=== PATIENT | male | born 1950 | race Caucasian/White ===

== ENCOUNTER 2016-10-20 20:04 | Emergency (ER) | payer MEDICARE, OTHER ==
[2016-10-20] MEDS ORDERED: ASPIRIN 81 MG CHEW TABLET As Ordered ONE (20:31)
[2016-10-20 20:51] LABS: MEAN CORPUSCULAR HEMOGLOBIN 30.6 pg (27.0-33.0); MEAN CORPUSCULAR HGB CONC 34.4 g/dl (32.0-36.5); MEAN CORPUSCULAR VOLUME 89.1 fl (80.0-96.0); RED CELL DISTRIBUTION WIDTH 12.5 % (11.5-14.5); WHITE BLOOD COUNT 6.2 K/mm3 (4.0-10.0)
[2016-10-20 20:53] LABS: INR 1.05
[2016-10-20 21:09] LABS: ANION GAP 7 MEQ/L (8-16); BLOOD UREA NITROGEN 16 MG/DL (7-18); CALCIUM LEVEL 8.6 MG/DL (8.8-10.2); CARBON DIOXIDE LEVEL 29 MEQ/L (21-32); CHLORIDE LEVEL 106 MEQ/L (98-107); CREATININE FOR GFR 1.07 MG/DL (0.70-1.30); GLOMERULAR FILTRATION RATE > 60.0 (>49); GLUCOSE, FASTING 108 MG/DL (80-110); POTASSIUM SERUM 3.9 MEQ/L (3.5-5.1); SODIUM LEVEL 142 MEQ/L (136-145)
--- NOTE | 2016-10-21 01:52 | EDDOCDS ---
Nurse's Notes [facility] Name: Ishmael Monterroso Age: 66 yrs Sex: Male : 1950 Arrival Date: 10/20/2016 Time: 20:04 Bed OBSERVATION Private MD: Quynh - Complete Info On Cds Diagnosis: Chest pain, unspecified Presentation: 10/20 20:12 Presenting complaint: Patient states: he developed chest pain tonight shortly before cz arrival when putting the garbage out pain radiated to arms presently chest pain 1/10 and elbow pain bilaterally. mpt relates he has had episodes of chest pain for past month. Aspirin was not taken prior to arrival. Adult Sepsis Screening: The patient does not have new or worsening altered mentation. Patient's respiratory rate is less than 22. Systolic blood pressure is greater than 100. Patient has a qSOFA score of 0- Negative Sepsis Screen. Suicide/Homicide risk assessment- the patient denies having any suicidal and/or homicidal ideations and does not present with any other emotional, behavioral or mental health complaints. 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 Transition of care: patient was not received from another setting of care. 20:12 Acuity: HANNY Level 2 cz 20:12 Method Of Arrival: Walkin/Carried/Asstd cz Triage Assessment: 20:17 General: Appears in no apparent distress. Pain: Location: mid-sternal area Pain cz currently is 1 out of 10 on a pain scale. Historical: - Allergies: No known drug Allergies; - Home Meds: 1. aspirin 81 mg Oral tab 2. Zoloft 25 mg Oral tab 3. vitamins - PMHx: none; - PSHx: Cervical Discectomy; - Social history: Smoking status: Patient states was never smoker of tobacco. No barriers to communication noted, The patient speaks fluent Uzbek, Speaks appropriately for age. - Family history: Not pertinent. - : The pt / caregiver states he / she is not on anticoagulants. Home medication list is obtained from the patient. - Exposure Risk Screening:: None identified. Screenin:16 Screening information is obtained from the patient. Fall risk: No risks identified. mlc Assistance ADL's: requires no assistance with activities of daily living. Abuse/DV Screen: The patient / caregiver reports he/she is: not in a situation that causes fear, pain or injury. Nutritional screening: No deficits noted. home support is adequate. 22:55 Advance Directives: Currently, there is no health care proxy. There is no active DNR mlc order. There is no living will. There is no Power of Decorating Instructor. Assessment: 20:29 General: Appears in no apparent distress, Behavior is appropriate for age, cooperative. pml Pain: Location: mid-sternal area Pain currently is 3 out of 10 on a pain scale. At worst was 7 out of 10 on a pain scale. Aggravated by palpation. Neurological: Level of Consciousness is awake, alert, Oriented to person, place, time. Cardiovascular: Capillary refill < 3 seconds Rhythm is sinus rhythm No ectopy. Respiratory: Airway is patent Respiratory effort is even, unlabored. GI: Abdomen is non- distended. Derm: Skin is pink, warm & dry. 21:53 General: Appears in no apparent distress, comfortable, Behavior is cooperative. mlc General: pt ambulated to bathroom, tolerated well. Neurological: Level of Consciousness is awake, alert, Oriented to person, place, time. Respiratory: Airway is patent Respiratory effort is even, unlabored, Respiratory pattern is regular. Derm: Skin is pink, warm & dry. 22:55 Reassessment: Patient appears in no apparent distress at this time. Patient denies pain mlc at this time. pt resting comfortably in bed. . Cardiovascular: Heart tones S1 S2 present. Cardiovascular: Rhythm is sinus rhythm. Respiratory: Breath sounds are clear bilaterally. Derm: Skin is pink, warm & dry. 23:41 Reassessment: Patient appears in no apparent distress at this time. no changes since mlc prior, resp easy/unlabored. . 10/21 00:59 Reassessment: Patient appears in no apparent distress at this time. Patient denies pain mlc at this time. pt offers no complaints. resp easy/unlabored. . 01:49 General: Appears in no apparent distress, comfortable, Behavior is cooperative. Pain: mlc Denies pain. Neurological: Level of Consciousness is awake, alert, Oriented to person, place, time. Respiratory: Airway is patent Respiratory effort is even, unlabored, Respiratory pattern is regular. Derm: Skin is pink, warm & dry. Vital Signs: 10/20 20:06 BP 128 / 86; Pulse 76; Resp 18 S; Temp 96.7(O); Pulse Ox 99% on R/A; Weight 88.45 kg gr2 (R); Height 5 ft. 11 in. (180.34 cm) (R); Pain 12/16; 20:16 BP 167 / 97 (auto/); mlc 20:19 Pulse 76 MON; mlc 20:31 Pulse 74 MON; mlc 20:31 BP 139 / 79 (auto/); mlc 20:46 Pulse 74 MON; mlc 20:46 BP 125 / 68 (auto/); mlc 21:01 Pulse 70 MON; mlc 21:01 BP 134 / 82 (auto/); mlc 21:16 BP 132 / 84 (auto/); mlc 21:17 Pulse 66 MON; mlc 21:31 BP 135 / 80 (auto/); mlc 21:32 Pulse 66 MON; mlc 21:47 BP 138 / 71 (auto/); mlc 21:49 Pulse 68 MON; mlc 22:01 BP 122 / 65 (auto/); mlc 22:02 Pulse 64 MON; Pulse Ox 96% ; mlc 22:16 BP 123 / 75 (auto/); mlc 22:17 Pulse 62 MON; Pulse Ox 96% ; mlc 22:31 BP 123 / 72 (auto/); mlc 22:32 Pulse 66 MON; Pulse Ox 97% ; mlc 22:46 BP 131 / 81 (auto/); mlc 22:47 Pulse 62 MON; Pulse Ox 98% ; mlc 23:01 BP 127 / 83 (auto/); mlc 23:02 Pulse 62 MON; Pulse Ox 96% ; mlc 23:16 BP 139 / 91 (auto/); mlc 23:17 Pulse 58 MON; Pulse Ox 97% ; mlc 23:31 BP 143 / 96 (auto/); mlc 23:32 Pulse 66 MON; Pulse Ox 93% ; mlc 23:46 Pulse 64 MON; Pulse Ox 96% ; mlc 23:46 BP 131 / 88 (auto/); mlc 10/21 00:01 BP 136 / 95 (auto/); mlc 00:02 Pulse 62 MON; Pulse Ox 96% ; mlc 00:16 Pulse 58 MON; Pulse Ox 97% ; mlc 00:16 BP 131 / 87 (auto/); mlc 00:31 BP 130 / 89 (auto/); mlc 00:32 Pulse 62 MON; Pulse Ox 97% ; mlc 00:46 BP 137 / 89 (auto/); mlc 00:47 Pulse 64 MON; Pulse Ox 96% ; mlc 01:07 BP 135 / 89 (auto/); mlc 01:08 Pulse 68 MON; Pulse Ox 96% ; mlc 01:16 Pulse 58 MON; Pulse Ox 96% ; mlc 01:16 BP 135 / 85 (auto/); mlc 01:31 Pulse 60 MON; Pulse Ox 95% ; mlc 01:31 BP 122 / 70 (auto/); mlc 01:49 BP 128 / 79; Pulse 60; Resp 18; Temp 97.7; Pulse Ox 98% on R/A; Pain 0/10; mlc 10/20 20:06 Body Mass Index 27.20 (88.45 kg, 180.34 cm) gr2 Vitals: 10/20 20:06 Log In Time: October 20, 2016 at 20:06. RN notified that patient meets Red Flag gr2 criteria. ED Course: 20:06 Patient visited by Deidra Jiménez. gr2 20:06 Other - Complete Info On Cds is Private Physician. gr2 20:06 Patient moved to Waiting gr2 20:08 Patient visited by Deidra Jiménez. gr2 20:09 Patient moved to Pre RCE gr2 20:10 Tasneem Wolff,ODALYS is Primary Nurse. cz 20:10 Case Klein DO is Attending Physician. cs11 20:10 Patient visited by Case Klein DO. cs11 20:10 Patient moved to 10 cz 20:15 Triage Initiated cz 20:27 Patient visited by Rajeev Goetz PCA. kb5 20:27 EKG done. (by ED staff). Reviewed by Case Klein DO. kb5 20:29 The patient / caregiver is instructed regarding the plan of care and ED course. Patient pml has correct armband on for positive identification. Placed in gown. Bed in low position. Call light in reach. Side rails up X2. media monitor on. Pulse ox on. NIBP on. 20:29 Inserted peripheral IV: 18gauge IV in left antecubital area and blood collected. pml Patient tolerated the procedure well. 20:31 Patient visited by Patty Luke RN. pml 20:42 Patient moved to OBSERVATION cs11 20:44 Cardiac Marker Panel Sent. mlc 20:44 Pt & Aptt Sent. mlc 20:44 MED Profile Sent. mlc 20:44 CBC Sent. mlc 21:56 Patient visited by Tasneem Wolff RN. mlc 21:56 Patient visited by Rajeev Goetz PCA. kb5 22:57 Patient visited by Tasneem Wolff RN. mlc 23:41 Patient visited by Tasneem Wolff RN. mlc 10/21 00:59 Patient visited by Tasneem Wolff RN. mlc 00:59 [facility] Payment Agreement was scanned into [employer] and attached to record. hs2 01:00 CARDIAC MARKER PANEL Sent. mlc 01:15 Patient visited by Rajeev Goetz PCA. kb5 01:15 EKG done. (by ED staff). Reviewed by Case Klein DO. kb5 01:41 Kushal Ornelas MD is Referral Physician. cs11 01:50 Discontinued IV lock intact, bleeding controlled, pressure dressing applied, No mlc redness/swelling at site. No procedures done that require assistance. Administered Medications: 10/20 20:34 Drug: Aspirin 81 mg [aspirin 81 mg chewable tablet (1 tabs)] Route: PO; pml Order Results: Lab Order: CBC; SPEC'M 10/20/16 20:21 Test: WHITE BLOOD COUNT; Value: 6.2; Range: 4.0-10.0; Units: K/mm3; Status: F Test: RED BLOOD COUNT; Value: 4.87; Range: 4.30-6.10; Units: M/mm3; Status: F Test: HEMOGLOBIN; Value: 14.9; Range: 14.0-18.0; Units: g/dl; Status: F Test: HEMATOCRIT; Value: 43.4; Range: 42.0-52.0; Units: %; Status: F Test: MEAN CORPUSCULAR VOLUME; Value: 89.1; Range: 80.0-96.0; Units: fl; Status: F Test: MEAN CORPUSCULAR HEMOGLOBIN; Value: 30.6; Range: 27.0-33.0; Units: pg; Status: F Test: MEAN CORPUSCULAR HGB CONC; Value: 34.4; Range: 32.0-36.5; Units: g/dl; Status: F Test: RED CELL DISTRIBUTION WIDTH; Value: 12.5; Range: 11.5-14.5; Units: %; Status: F Test: PLATELET COUNT, AUTOMATED; Value: 179; Range: 150-450; Units: k/mm3; Status: F Lab Order: MED Profile; SPEC'M 10/20/16 20:21 Test: GLUCOSE, FASTING; Value: 108; Range: 80-110; Units: MG/DL; Status: F Test: BLOOD UREA NITROGEN; Value: 16; Range: 7-18; Units: MG/DL; Status: F Test: CREATININE FOR GFR; Value: 1.07; Range: 0.70-1.30; Units: MG/DL; Status: F Test: GLOMERULAR FILTRATION RATE; Value: > 60.0; Range: >49; Status: F Test: SODIUM LEVEL; Value: 142; Range: 136-145; Units: MEQ/L; Status: F Test: POTASSIUM SERUM; Value: 3.9; Range: 3.5-5.1; Units: MEQ/L; Status: F Test: CHLORIDE LEVEL; Value: 106; Range: 98-107; Units: MEQ/L; Status: F Test: CARBON DIOXIDE LEVEL; Value: 29; Range: 21-32; Units: MEQ/L; Status: F Test: ANION GAP; Value: 7; Range: 8-16; Abnormal: Below low normal; Units: MEQ/L; Status: F Test: CALCIUM LEVEL; Value: 8.6; Range: 8.8-10.2; Abnormal: Below low normal; Units: MG/DL; Status: F Test Note: ; Units are mL/min/1.73 m2 Chronic Kidney Disease Staging per NKF: Stage I & II GFR >=60 Normal to Mildly Decreased Stage III GFR 30-59 Moderately Decreased Stage IV GFR 15-29 Severely Decreased Stage V GFR <15 Very Little GFR Left ESRD GFR <15 on NUCLEAR MEDICAL TECH Lab Order: Pt & Aptt; SPEC'M 10/20/16 20:21 Test: PROTHROMBIN TIME; Value: 13.8; Range: 12.3-14.5; Units: SECONDS; Status: F Test: INR; Value: 1.05; Status: F Test: PARTIAL THROMBOPLASTIN TIME; Value: 30.2; Range: 26.6-37.1; Units: SECONDS; Status: F Test Note: ; THERAPUTIC HUMAN INR VALUES INDICATIONS NORMAL RANGES PROPHYLAXIS/TREATMENT OF: VENOUS THROMBOSIS 2.0-3.0 PULMONARY EMBOLISM 2.0-3.0 PREVENTION OF SYSTEMIC EMBOLISM FROM: TISSUE HEART VALVES 2.0-3.0 ACUTE MYOCARDIAL INFARCTION 2.0-3.0 VALVULAR HEART DISEASE 2.0-3.0 ATRIAL FIBRILLATION 2.0-3.0 MECHANICAL VALVES(HIGH RISK) 2.5-3.5 RECURRENT MYOCARDIAL INFARCTION 2.5-3.5 Lab Order: Cardiac Marker Panel; [facility] 10/20/16 20:21 Test: CPK CREATINE PHOSPHOKINASE; Value: 322; Range: 39-308; Abnormal: Above high normal; Units: U/L; Status: F Test: CK-MB VALUE MASS; Value: 2.9; Range: 0.0-3.6; Units: NG/ML; Status: F Test: MB/CK RELATIVE INDEX; Value: 0.90; Range: < OR =4; Status: F Test: TROPONIN I; Value: < 0.02; Range: < 0.10; Units: NG/ML; Status: F Test Note: ; DIAGNOSIS CRITERIA MMB ng/ml Relative Index (RI) NON-AMI < or = 5 N/A ROTH ZONE > 5 < or = 4 AMI > 5 > 4 Lab Order: CARDIAC MARKER PANEL; SPEC'M 10/21/16 00:56 Test: CPK CREATINE PHOSPHOKINASE; Value: 274; Range: 39-308; Units: U/L; Status: F Test: CK-MB VALUE MASS; Value: 2.6; Range: 0.0-3.6; Units: NG/ML; Status: F Test: MB/CK RELATIVE INDEX; Value: 0.94; Range: < OR =4; Status: F Test: TROPONIN I; Value: < 0.02; Range: < 0.10; Units: NG/ML; Status: F Test Note: ; DIAGNOSIS CRITERIA MMB ng/ml Relative Index (RI) NON-AMI < or = 5 N/A ROTH ZONE > 5 < or = 4 AMI > 5 > 4 Outcome: 10/21 01:41 Discharge ordered by Provider. [facility] 01:50 Discharge Assessment: Patient awake, alert and oriented x 3. No cognitive and/or mlc functional deficits noted. Patient verbalized understanding of disposition instructions. patient administered narcotics - no. The following High Risk Discharge criteria are identified: None. Discharged to home ambulatory, with significant other. Condition: good Condition: stable. Discharge instructions given to patient, Instructed on discharge instructions, follow up and referral plans. Demonstrated understanding of instructions, Pt was receptive of discharge instructions/ teaching. No special radiology studies were completed. Property sent home with patient. 01:51 [place] [facility] [place]: Jose Alfredo Fonseca, RN RN Rajeev Peguero, EILEEN AUTO DETAILER kb5 Patty Luke RN RN pml Schiff, Craig, DO cs11 Deidra Jiménez gr2 Tasneem Wolff RN RN mlc Stanton, Hillary, Reg Reg hs2 MTDD
--- NOTE | 2016-10-21 01:52 | EDDOCDS ---
Physician Documentation [facility] Name: Ishmael Monterroso Age: 66 yrs Sex: Male : 1950 Arrival Date: 10/20/2016 Time: 20:04 Bed OBSERVATION Private MD: Other - Complete Info On Cds Disposition: 10/21/16 01:41 Discharged to Home/Self Care. Impression: Chest pain, unspecified. - Condition is Stable. - Medication Reconciliation, Local Pharmacy Hours form. - Follow up: Kushal Ornelas MD; When: Call to arrange an appointment; Reason: Recheck today's complaints. - Problem is an ongoing problem. - Symptoms have improved. Historical: - Allergies: No known drug Allergies; - Home Meds: 1. aspirin 81 mg Oral tab 2. Zoloft 25 mg Oral tab 3. vitamins - PMHx: none; - PSHx: Cervical Discectomy; - Social history: Smoking status: Patient states was never smoker of tobacco. No barriers to communication noted, The patient speaks fluent Montserratian, Speaks appropriately for age. - Family history: Not pertinent. - : The pt / caregiver states he / she is not on anticoagulants. Home medication list is obtained from the patient. - Exposure Risk Screening:: None identified. Vital Signs: 10/20 20:06 BP 128 / 86; Pulse 76; Resp 18 S; Temp 96.7(O); Pulse Ox 99% on R/A; Weight 88.45 kg / gr2 195 lbs (R); Height 5 ft. 11 in. (180.34 cm) (R); Pain 3/10; 20:16 BP 167 / 97 (auto/); mlc 20:19 Pulse 76 MON; mlc 20:31 Pulse 74 MON; mlc 20:31 BP 139 / 79 (auto/); mlc 20:46 Pulse 74 MON; mlc 20:46 BP 125 / 68 (auto/); mlc 21:01 Pulse 70 MON; mlc 21:01 BP 134 / 82 (auto/); mlc 21:16 BP 132 / 84 (auto/); mlc 21:17 Pulse 66 MON; mlc 21:31 BP 135 / 80 (auto/); mlc 21:32 Pulse 66 MON; mlc 21:47 BP 138 / 71 (auto/); mlc 21:49 Pulse 68 MON; mlc 22:01 BP 122 / 65 (auto/); mlc 22:02 Pulse 64 MON; Pulse Ox 96% ; mlc 22:16 BP 123 / 75 (auto/); mlc 22:17 Pulse 62 MON; Pulse Ox 96% ; mlc 22:31 BP 123 / 72 (auto/); mlc 22:32 Pulse 66 MON; Pulse Ox 97% ; mlc 22:46 BP 131 / 81 (auto/); mlc 22:47 Pulse 62 MON; Pulse Ox 98% ; mlc 23:01 BP 127 / 83 (auto/); mlc 23:02 Pulse 62 MON; Pulse Ox 96% ; mlc 23:16 BP 139 / 91 (auto/); mlc 23:17 Pulse 58 MON; Pulse Ox 97% ; mlc 23:31 BP 143 / 96 (auto/); mlc 23:32 Pulse 66 MON; Pulse Ox 93% ; mlc 23:46 Pulse 64 MON; Pulse Ox 96% ; mlc 23:46 BP 131 / 88 (auto/); mlc 10/21 00:01 BP 136 / 95 (auto/); mlc 00:02 Pulse 62 MON; Pulse Ox 96% ; mlc 00:16 Pulse 58 MON; Pulse Ox 97% ; mlc 00:16 BP 131 / 87 (auto/); mlc 00:31 BP 130 / 89 (auto/); mlc 00:32 Pulse 62 MON; Pulse Ox 97% ; mlc 00:46 BP 137 / 89 (auto/); mlc 00:47 Pulse 64 MON; Pulse Ox 96% ; mlc 01:07 BP 135 / 89 (auto/); mlc 01:08 Pulse 68 MON; Pulse Ox 96% ; mlc 01:16 Pulse 58 MON; Pulse Ox 96% ; mlc 01:16 BP 135 / 85 (auto/); mlc 01:31 Pulse 60 MON; Pulse Ox 95% ; mlc 01:31 BP 122 / 70 (auto/); mlc 01:49 BP 128 / 79; Pulse 60; Resp 18; Temp 97.7; Pulse Ox 98% on R/A; Pain 0/10; mlc 10/20 20:06 Body Mass Index 27.20 (88.45 kg, 180.34 cm) gr2 MDM: 10/20 20:12 ECG WITH READING ER PHYS+CARDIAG ordered. EDMS 20:29 Aspirin Chewable Tablet 81 mg PO once; 3 tabs ordered. cs11 20:30 Chest, 1 View Ordered. EDMS 20:32 CBC Ordered. EDMS 20:32 MED Profile Ordered. EDMS 20:32 Pt & Aptt Ordered. EDMS 20:32 Cardiac Marker Panel Ordered. EDMS 21:53 MED Profile Reviewed. cs11 21:53 Cardiac Marker Panel Reviewed. cs11 21:53 CBC Reviewed. cs11 21:53 Pt & Aptt Reviewed. cs11 21:54 Misc Supervisor Refining Order ordered. cs11 22:11 Misc Supervisor Refining Order complete. ml3 22:12 ECG WITH READING ER PHYS ordered. EDMS 22:13 CARDIAC MARKER PANEL Ordered. EDMS 23:58 Financial registration complete. hs2 10/21 00:59 [facility] Payment Agreement was scanned into [employer] and attached to record. hs2 01:38 CARDIAC MARKER PANEL Reviewed. cs11 Administered Medications: 10/20 20:34 Drug: Aspirin 81 mg [aspirin 81 mg chewable tablet (1 tabs)] Route: PO; pml Signatures: Dispatcher [employer] EDMS Jose Alfredo Fonseca RN RN cz Jh Castaneda, Qm Nurse Unit ml3 Patty Luke RN RN pml Case Klein, DO DO cs11 Tasneem WolffRN RN mlc Migdalia Noble, Reg Reg hs2 The chart was reviewed and I authenticate all verbal orders and agree with the evaluation and treatment provided.Attachments: 10/21 00:59 [facility] Payment Agreement hs2 MTDD
--- NOTE | 2016-10-21 07:50 | REP ---
Clinical: Chest pain . Comparison: None . Findings: The mediastinum and cardiac silhouette are stable and within normal limits for portable technique. The lung dela cruz are clear without acute consolidation, effusion, or pneumothorax. Skeletal structures are intact. Impression: Normal portable chest x-ray Signed by Nitin Gruber MD 10/21/2016 07:41 A
--- NOTE | 2016-10-21 08:36 | ECGEPIP ---
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
--- NOTE | 2016-10-21 08:47 | ECGEPIP ---
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
--- NOTE | 2016-10-23 02:52 | EDDOCDS ---
Physician Documentation [facility] Name: Ishmael Monterroso Age: 66 yrs Sex: Male : 1950 Arrival Date: 10/20/2016 Time: 20:04 Bed OBSERVATION Private MD: Other - Complete Info On Cds Disposition: 10/21/16 01:41 Discharged to Home/Self Care. Impression: Chest pain, unspecified. - Condition is Stable. - Medication Reconciliation, Local Pharmacy Hours form. - Follow up: Kushal Ornelas MD; When: Call to arrange an appointment; Reason: Recheck today's complaints. - Problem is an ongoing problem. - Symptoms have improved. Historical: - Allergies: No known drug Allergies; - Home Meds: 1. aspirin 81 mg Oral tab 2. Zoloft 25 mg Oral tab 3. vitamins - PMHx: none; - PSHx: Cervical Discectomy; - Social history: Smoking status: Patient states was never smoker of tobacco. No barriers to communication noted, The patient speaks fluent Montenegrin, Speaks appropriately for age. - Family history: Not pertinent. - : The pt / caregiver states he / she is not on anticoagulants. Home medication list is obtained from the patient. - Exposure Risk Screening:: None identified. Vital Signs: 10/20 20:06 BP 128 / 86; Pulse 76; Resp 18 S; Temp 96.7(O); Pulse Ox 99% on R/A; Weight 88.45 kg / gr2 195 lbs (R); Height 5 ft. 11 in. (180.34 cm) (R); Pain 3/10; 20:16 BP 167 / 97 (auto/); mlc 20:19 Pulse 76 MON; mlc 20:31 Pulse 74 MON; mlc 20:31 BP 139 / 79 (auto/); mlc 20:46 Pulse 74 MON; mlc 20:46 BP 125 / 68 (auto/); mlc 21:01 Pulse 70 MON; mlc 21:01 BP 134 / 82 (auto/); mlc 21:16 BP 132 / 84 (auto/); mlc 21:17 Pulse 66 MON; mlc 21:31 BP 135 / 80 (auto/); mlc 21:32 Pulse 66 MON; mlc 21:47 BP 138 / 71 (auto/); mlc 21:49 Pulse 68 MON; mlc 22:01 BP 122 / 65 (auto/); mlc 22:02 Pulse 64 MON; Pulse Ox 96% ; mlc 22:16 BP 123 / 75 (auto/); mlc 22:17 Pulse 62 MON; Pulse Ox 96% ; mlc 22:31 BP 123 / 72 (auto/); mlc 22:32 Pulse 66 MON; Pulse Ox 97% ; mlc 22:46 BP 131 / 81 (auto/); mlc 22:47 Pulse 62 MON; Pulse Ox 98% ; mlc 23:01 BP 127 / 83 (auto/); mlc 23:02 Pulse 62 MON; Pulse Ox 96% ; mlc 23:16 BP 139 / 91 (auto/); mlc 23:17 Pulse 58 MON; Pulse Ox 97% ; mlc 23:31 BP 143 / 96 (auto/); mlc 23:32 Pulse 66 MON; Pulse Ox 93% ; mlc 23:46 Pulse 64 MON; Pulse Ox 96% ; mlc 23:46 BP 131 / 88 (auto/); mlc 10/21 00:01 BP 136 / 95 (auto/); mlc 00:02 Pulse 62 MON; Pulse Ox 96% ; mlc 00:16 Pulse 58 MON; Pulse Ox 97% ; mlc 00:16 BP 131 / 87 (auto/); mlc 00:31 BP 130 / 89 (auto/); mlc 00:32 Pulse 62 MON; Pulse Ox 97% ; mlc 00:46 BP 137 / 89 (auto/); mlc 00:47 Pulse 64 MON; Pulse Ox 96% ; mlc 01:07 BP 135 / 89 (auto/); mlc 01:08 Pulse 68 MON; Pulse Ox 96% ; mlc 01:16 Pulse 58 MON; Pulse Ox 96% ; mlc 01:16 BP 135 / 85 (auto/); mlc 01:31 Pulse 60 MON; Pulse Ox 95% ; mlc 01:31 BP 122 / 70 (auto/); mlc 01:49 BP 128 / 79; Pulse 60; Resp 18; Temp 97.7; Pulse Ox 98% on R/A; Pain 0/10; mlc 10/20 20:06 Body Mass Index 27.20 (88.45 kg, 180.34 cm) gr2 MDM: 10/20 20:12 ECG WITH READING ER PHYS+CARDIAG ordered. EDMS 20:29 Aspirin Chewable Tablet 81 mg PO once; 3 tabs ordered. cs11 20:30 Chest, 1 View Ordered. EDMS 20:32 CBC Ordered. EDMS 20:32 MED Profile Ordered. EDMS 20:32 Pt & Aptt Ordered. EDMS 20:32 Cardiac Marker Panel Ordered. EDMS 21:53 MED Profile Reviewed. cs11 21:53 Cardiac Marker Panel Reviewed. cs11 21:53 CBC Reviewed. cs11 21:53 Pt & Aptt Reviewed. cs11 21:54 Misc Cost Estimating Clerk Order ordered. cs11 22:11 Misc Cost Estimating Clerk Order complete. ml3 22:12 ECG WITH READING ER PHYS ordered. EDMS 22:13 CARDIAC MARKER PANEL Ordered. EDMS 23:58 Financial registration complete. hs2 10/21 00:59 [facility] [place] was [place] into [employer] and attached to record. hs2 01:38 CARDIAC MARKER PANEL Reviewed. cs11 11:56 T-Sheet-- Draft Copy was scanned into [employer] and attached to record. gb 11:57 ECG/EKG was scanned into [employer] and attached to record. gb Administered Medications: 10/20 20:34 Drug: Aspirin 81 mg [aspirin 81 mg chewable tablet (1 tabs)] Route: PO; pml Signatures: Dispatcher [employer] EDMS Jose Alfredo Fonseca RN RN cz Treva Bashir, Reg Reg gb Jh Castaneda, Golf Course Manager Unit ml3 Patty Luke RN RN pml Case Klein, DO DO cs11 Tasneem Wolff RN RN [facility] [place] Migdalia Noble, Reg Reg hs2 The chart was reviewed and I authenticate all verbal orders and agree with the evaluation and treatment provided.Attachments: 10/21 00:59 [facility] [place] hs2 11:56 T-Sheet-- Draft Copy gb 11:57 ECG/EKG gb Chart Complete MTDD
--- NOTE | 2016-10-23 02:52 | EDDOCDS ---
Nurse's Notes [facility] Name: Mason Monterroso Age: 66 yrs Sex: Male : 1950 Arrival Date: 10/20/2016 Time: 20:04 Bed OBSERVATION Private MD: Quynh - Complete Info On Cds Diagnosis: Chest pain, unspecified Presentation: 10/20 20:12 Presenting complaint: Patient states: he developed chest pain tonight shortly before cz arrival when putting the garbage out pain radiated to arms presently chest pain 1/10 and elbow pain bilaterally. mpt relates he has had episodes of chest pain for past month. Aspirin was not taken prior to arrival. Adult Sepsis Screening: The patient does not have new or worsening altered mentation. Patient's respiratory rate is less than 22. Systolic blood pressure is greater than 100. Patient has a qSOFA score of 0- Negative Sepsis Screen. Suicide/Homicide risk assessment- the patient denies having any suicidal and/or homicidal ideations and does not present with any other emotional, behavioral or mental health complaints. 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 Transition of care: patient was not received from another setting of care. 20:12 Acuity: HANNY Level 2 cz 20:12 Method Of Arrival: Walkin/Carried/Asstd cz Triage Assessment: 20:17 General: Appears in no apparent distress. Pain: Location: mid-sternal area Pain cz currently is 1 out of 10 on a pain scale. Historical: - Allergies: No known drug Allergies; - Home Meds: 1. aspirin 81 mg Oral tab 2. Zoloft 25 mg Oral tab 3. vitamins - PMHx: none; - PSHx: Cervical Discectomy; - Social history: Smoking status: Patient states was never smoker of tobacco. No barriers to communication noted, The patient speaks fluent Danish, Speaks appropriately for age. - Family history: Not pertinent. - : The pt / caregiver states he / she is not on anticoagulants. Home medication list is obtained from the patient. - Exposure Risk Screening:: None identified. Screenin:16 Screening information is obtained from the patient. Fall risk: No risks identified. mlc Assistance ADL's: requires no assistance with activities of daily living. Abuse/DV Screen: The patient / caregiver reports he/she is: not in a situation that causes fear, pain or injury. Nutritional screening: No deficits noted. home support is adequate. 22:55 Advance Directives: Currently, there is no health care proxy. There is no active DNR mlc order. There is no living will. There is no Power of Warehouse Receiving Clerk. Assessment: 20:29 General: Appears in no apparent distress, Behavior is appropriate for age, cooperative. pml Pain: Location: mid-sternal area Pain currently is 3 out of 10 on a pain scale. At worst was 7 out of 10 on a pain scale. Aggravated by palpation. Neurological: Level of Consciousness is awake, alert, Oriented to person, place, time. Cardiovascular: Capillary refill < 3 seconds Rhythm is sinus rhythm No ectopy. Respiratory: Airway is patent Respiratory effort is even, unlabored. GI: Abdomen is non- distended. Derm: Skin is pink, warm & dry. 21:53 General: Appears in no apparent distress, comfortable, Behavior is cooperative. mlc General: pt ambulated to bathroom, tolerated well. Neurological: Level of Consciousness is awake, alert, Oriented to person, place, time. Respiratory: Airway is patent Respiratory effort is even, unlabored, Respiratory pattern is regular. Derm: Skin is pink, warm & dry. 22:55 Reassessment: Patient appears in no apparent distress at this time. Patient denies pain mlc at this time. pt resting comfortably in bed. . Cardiovascular: Heart tones S1 S2 present. Cardiovascular: Rhythm is sinus rhythm. Respiratory: Breath sounds are clear bilaterally. Derm: Skin is pink, warm & dry. 23:41 Reassessment: Patient appears in no apparent distress at this time. no changes since mlc prior, resp easy/unlabored. . 10/21 00:59 Reassessment: Patient appears in no apparent distress at this time. Patient denies pain mlc at this time. pt offers no complaints. resp easy/unlabored. . 01:49 General: Appears in no apparent distress, comfortable, Behavior is cooperative. Pain: mlc Denies pain. Neurological: Level of Consciousness is awake, alert, Oriented to person, place, time. Respiratory: Airway is patent Respiratory effort is even, unlabored, Respiratory pattern is regular. Derm: Skin is pink, warm & dry. Vital Signs: 10/20 20:06 BP 128 / 86; Pulse 76; Resp 18 S; Temp 96.7(O); Pulse Ox 99% on R/A; Weight 88.45 kg gr2 (R); Height 5 ft. 11 in. (180.34 cm) (R); Pain 12/16; 20:16 BP 167 / 97 (auto/); mlc 20:19 Pulse 76 MON; mlc 20:31 Pulse 74 MON; mlc 20:31 BP 139 / 79 (auto/); mlc 20:46 Pulse 74 MON; mlc 20:46 BP 125 / 68 (auto/); mlc 21:01 Pulse 70 MON; mlc 21:01 BP 134 / 82 (auto/); mlc 21:16 BP 132 / 84 (auto/); mlc 21:17 Pulse 66 MON; mlc 21:31 BP 135 / 80 (auto/); mlc 21:32 Pulse 66 MON; mlc 21:47 BP 138 / 71 (auto/); mlc 21:49 Pulse 68 MON; mlc 22:01 BP 122 / 65 (auto/); mlc 22:02 Pulse 64 MON; Pulse Ox 96% ; mlc 22:16 BP 123 / 75 (auto/); mlc 22:17 Pulse 62 MON; Pulse Ox 96% ; mlc 22:31 BP 123 / 72 (auto/); mlc 22:32 Pulse 66 MON; Pulse Ox 97% ; mlc 22:46 BP 131 / 81 (auto/); mlc 22:47 Pulse 62 MON; Pulse Ox 98% ; mlc 23:01 BP 127 / 83 (auto/); mlc 23:02 Pulse 62 MON; Pulse Ox 96% ; mlc 23:16 BP 139 / 91 (auto/); mlc 23:17 Pulse 58 MON; Pulse Ox 97% ; mlc 23:31 BP 143 / 96 (auto/); mlc 23:32 Pulse 66 MON; Pulse Ox 93% ; mlc 23:46 Pulse 64 MON; Pulse Ox 96% ; mlc 23:46 BP 131 / 88 (auto/); mlc 10/21 00:01 BP 136 / 95 (auto/); mlc 00:02 Pulse 62 MON; Pulse Ox 96% ; mlc 00:16 Pulse 58 MON; Pulse Ox 97% ; mlc 00:16 BP 131 / 87 (auto/); mlc 00:31 BP 130 / 89 (auto/); mlc 00:32 Pulse 62 MON; Pulse Ox 97% ; mlc 00:46 BP 137 / 89 (auto/); mlc 00:47 Pulse 64 MON; Pulse Ox 96% ; mlc 01:07 BP 135 / 89 (auto/); mlc 01:08 Pulse 68 MON; Pulse Ox 96% ; mlc 01:16 Pulse 58 MON; Pulse Ox 96% ; mlc 01:16 BP 135 / 85 (auto/); mlc 01:31 Pulse 60 MON; Pulse Ox 95% ; mlc 01:31 BP 122 / 70 (auto/); mlc 01:49 BP 128 / 79; Pulse 60; Resp 18; Temp 97.7; Pulse Ox 98% on R/A; Pain 0/10; mlc 10/20 20:06 Body Mass Index 27.20 (88.45 kg, 180.34 cm) gr2 Vitals: 10/20 20:06 Log In Time: October 20, 2016 at 20:06. RN notified that patient meets Red Flag gr2 criteria. ED Course: 20:06 Patient visited by Deidra Jiménez. gr2 20:06 Other - Complete Info On Cds is Private Physician. gr2 20:06 Patient moved to Waiting gr2 20:08 Patient visited by Deidra Jiménez. gr2 20:09 Patient moved to Pre RCE gr2 20:10 Tasneem Wolff,ODALYS is Primary Nurse. cz 20:10 Juanjo Ellsworth DO is Attending Physician. cs11 20:10 Patient visited by Juanjo Ellsworth DO. cs11 20:10 Patient moved to 10 cz 20:15 Triage Initiated cz 20:27 Patient visited by Rajeev Goetz PCA. kb5 20:27 EKG done. (by ED staff). Reviewed by Juanjo Ellsworth DO. kb5 20:29 The patient / caregiver is instructed regarding the plan of care and ED course. Patient pml has correct armband on for positive identification. Placed in gown. Bed in low position. Call light in reach. Side rails up X2. biometrics consultant on. Pulse ox on. NIBP on. 20:29 Inserted peripheral IV: 18gauge IV in left antecubital area and blood collected. pml Patient tolerated the procedure well. 20:31 Patient visited by Patty Luke RN. pml 20:42 Patient moved to OBSERVATION cs11 20:44 Cardiac Marker Panel Sent. mlc 20:44 Pt & Aptt Sent. mlc 20:44 MED Profile Sent. mlc 20:44 CBC Sent. mlc 21:56 Patient visited by Tasneem Wolff RN. mlc 21:56 Patient visited by Rajeev Goetz PCA. kb5 22:57 Patient visited by Tasneem Wolff RN. mlc 23:41 Patient visited by Tasneem Wolff RN. mlc 10/21 00:59 Patient visited by Tasneem Wolff RN. mlc 00:59 [facility] Payment Agreement was scanned into [employer] and attached to record. hs2 01:00 CARDIAC MARKER PANEL Sent. mlc 01:15 Patient visited by Rajeev Goetz PCA. kb5 01:15 EKG done. (by ED staff). Reviewed by Juanjo Ellsworth DO. kb5 01:41 Kushal Ornelas MD is Referral Physician. cs11 01:50 Discontinued IV lock intact, bleeding controlled, pressure dressing applied, No mlc redness/swelling at site. No procedures done that require assistance. 08:26 Chest, 1 View Returned. EDMS 09:06 EKG-ADULT Returned. EDMS 09:06 ECG WITH READING ER PHYS Returned. EDMS 11:56 T-Sheet-- Draft Copy was scanned into [employer] and attached to record. gb 11:57 ECG/EKG was scanned into [employer] and attached to record. gb Administered Medications: 10/20 20:34 Drug: Aspirin 81 mg [aspirin 81 mg chewable tablet (1 tabs)] Route: PO; pml Order Results: Lab Order: CBC; SPEC'M 10/20/16 20:21 Test: WHITE BLOOD COUNT; Value: 6.2; Range: 4.0-10.0; Units: K/mm3; Status: F Test: RED BLOOD COUNT; Value: 4.87; Range: 4.30-6.10; Units: M/mm3; Status: F Test: HEMOGLOBIN; Value: 14.9; Range: 14.0-18.0; Units: g/dl; Status: F Test: HEMATOCRIT; Value: 43.4; Range: 42.0-52.0; Units: %; Status: F Test: MEAN CORPUSCULAR VOLUME; Value: 89.1; Range: 80.0-96.0; Units: fl; Status: F Test: MEAN CORPUSCULAR HEMOGLOBIN; Value: 30.6; Range: 27.0-33.0; Units: pg; Status: F Test: MEAN CORPUSCULAR HGB CONC; Value: 34.4; Range: 32.0-36.5; Units: g/dl; Status: F Test: RED CELL DISTRIBUTION WIDTH; Value: 12.5; Range: 11.5-14.5; Units: %; Status: F Test: PLATELET COUNT, AUTOMATED; Value: 179; Range: 150-450; Units: k/mm3; Status: F Lab Order: MED Profile; SPEC'10/20/16 20:21 Test: GLUCOSE, FASTING; Value: 108; Range: 80-110; Units: MG/DL; Status: F Test: BLOOD UREA NITROGEN; Value: 16; Range: 7-18; Units: MG/DL; Status: F Test: CREATININE FOR GFR; Value: 1.07; Range: 0.70-1.30; Units: MG/DL; Status: F Test: GLOMERULAR FILTRATION RATE; Value: > 60.0; Range: >49; Status: F Test: SODIUM LEVEL; Value: 142; Range: 136-145; Units: MEQ/L; Status: F Test: POTASSIUM SERUM; Value: 3.9; Range: 3.5-5.1; Units: MEQ/L; Status: F Test: CHLORIDE LEVEL; Value: 106; Range: 98-107; Units: MEQ/L; Status: F Test: CARBON DIOXIDE LEVEL; Value: 29; Range: 21-32; Units: MEQ/L; Status: F Test: ANION GAP; Value: 7; Range: 8-16; Abnormal: Below low normal; Units: MEQ/L; Status: F Test: CALCIUM LEVEL; Value: 8.6; Range: 8.8-10.2; Abnormal: Below low normal; Units: MG/DL; Status: F Test Note: ; Units are mL/min/1.73 m2 Chronic Kidney Disease Staging per NKF: Stage I & II GFR >=60 Normal to Mildly Decreased Stage III GFR 30-59 Moderately Decreased Stage IV GFR 15-29 Severely Decreased Stage V GFR <15 Very Little GFR Left ESRD GFR <15 on ACCOUNT DEVELOPER Lab Order: Pt & Aptt; SPEC' 10/20/16 20:21 Test: PROTHROMBIN TIME; Value: 13.8; Range: 12.3-14.5; Units: SECONDS; Status: F Test: INR; Value: 1.05; Status: F Test: PARTIAL THROMBOPLASTIN TIME; Value: 30.2; Range: 26.6-37.1; Units: SECONDS; Status: F Test Note: ; THERAPUTIC HUMAN INR VALUES INDICATIONS NORMAL RANGES PROPHYLAXIS/TREATMENT OF: VENOUS THROMBOSIS 2.0-3.0 PULMONARY EMBOLISM 2.0-3.0 PREVENTION OF SYSTEMIC EMBOLISM FROM: TISSUE HEART VALVES 2.0-3.0 ACUTE MYOCARDIAL INFARCTION 2.0-3.0 VALVULAR HEART DISEASE 2.0-3.0 ATRIAL FIBRILLATION 2.0-3.0 MECHANICAL VALVES(HIGH RISK) 2.5-3.5 RECURRENT MYOCARDIAL INFARCTION 2.5-3.5 Lab Order: Cardiac Marker Panel; SPEC'M 10/20/16 20:21 Test: CPK CREATINE PHOSPHOKINASE; Value: 322; Range: 39-308; Abnormal: Above high normal; Units: U/L; Status: F Test: CK-MB VALUE MASS; Value: 2.9; Range: 0.0-3.6; Units: NG/ML; Status: F Test: MB/CK RELATIVE INDEX; Value: 0.90; Range: < OR =4; Status: F Test: TROPONIN I; Value: < 0.02; Range: < 0.10; Units: NG/ML; Status: F Test Note: ; DIAGNOSIS CRITERIA MMB ng/ml Relative Index (RI) NON-AMI < or = 5 N/A ROTH ZONE > 5 < or = 4 AMI > 5 > 4 Lab Order: CARDIAC MARKER PANEL; SPEC'M 10/21/16 00:56 Test: CPK CREATINE PHOSPHOKINASE; Value: 274; Range: 39-308; Units: U/L; Status: F Test: CK-MB VALUE MASS; Value: 2.6; Range: 0.0-3.6; Units: NG/ML; Status: F Test: MB/CK RELATIVE INDEX; Value: 0.94; Range: < OR =4; Status: F Test: TROPONIN I; Value: < 0.02; Range: < 0.10; Units: NG/ML; Status: F Test Note: ; DIAGNOSIS CRITERIA MMB ng/ml Relative Index (RI) NON-AMI < or = 5 N/A ROTH ZONE > 5 < or = 4 AMI > 5 > 4 Radiology Order: EKG-ADULT Test: EKG-ADULT REASON FOR EXAMINATION: Chest Pain; Stationary ECG Study; [facility] ED; ; Test Date: 2016-10-20; Pat Name: MASON MONTERROSO Department:; Room: -; Gender: M Occup Ther: LEDY; : 1950 Requested By: JUANJO ELLSWORTH; Order Number: [id number] Reading MD: Ryan Vora; Measurements; Intervals [place]; Rate: 72 P: 29; [place]: 145 QRS: 21; QRSD: 102 T: -47; QT: 383; QTc: 421; Interpretive Statements; SINUS RHYTHM WITH OCCASIONAL VENTRICULAR PREMATURE COMPLEXES; MODERATE T-WAVE ABNORMALITY, CONSIDER INFERIOR ISCHEMIA; NO PRIORS; Electronically Signed On 10-21-2016 8:36:22 EST by Ryan Vora; Radiology Order: Chest, 1 View Test: Chest, 1 View REASON FOR EXAMINATION: Chest Pain; Clinical: Chest pain .; ; Comparison: None .; ; Findings:; The mediastinum and cardiac silhouette are stable and within normal limits for; portable technique. The lung dela cruz are clear without acute consolidation,; effusion, or pneumothorax. Skeletal structures are intact.; ; Impression:; Normal portable chest x-ray; ; ; Signed by; Nitin Gruber MD 10/21/2016 07:41 A; Radiology Order: ECG WITH READING ER PHYS Test: ECG WITH READING ER PHYS REASON FOR EXAMINATION: CX PN; Stationary ECG Study; [facility] ED; ; Test Date: 2016-10-21; Pat Name: MASON WEST Department:; Room: -; Gender: M Occup Ther: LEDY; : 1950 Requested By: JORDAN HANKINS; Order Number: [id number] Reading MD: Ryan Vora; Measurements; Intervals [place]; Rate: 61 P: 18; [place]: 146 QRS: 7; QRSD: 96 T: -33; QT: 406; QTc: 411; Interpretive Statements; SINUS RHYTHM; NONSPECIFIC T-WAVE ABNORMALITY; SIMILAR TO 10/21/16; Electronically Signed On 10-21-2016 8:47:18 EST by Ryan Vora; Outcome: 10/21 01:41 Discharge ordered by Provider. cs11 01:50 Discharge Assessment: Patient awake, alert and oriented x 3. No cognitive and/or mlc functional deficits noted. Patient verbalized understanding of disposition instructions. patient administered narcotics - no. The following High Risk Discharge criteria are identified: None. Discharged to home ambulatory, with significant other. Condition: good Condition: stable. Discharge instructions given to patient, Instructed on discharge instructions, follow up and referral plans. Demonstrated understanding of instructions, Pt was receptive of discharge instructions/ teaching. No special radiology studies were completed. Property sent home with patient. 01:51 Patient left the ED. mlc Signatures: Dispatcher [employer] EDMS Jose Alfredo Fonseca, ODALYS RN cz Treva Bashir, Reg Reg gb Rajeev Goetz, HOLDER PILE DRIVING HOLDER PILE DRIVING kb5 Patty LukeRN RN Jaunjo Collier, DO cs11 Deidra Jiménez gr2 Tasneem Wolff RN RN mlc Stanton, Hillary, Reg Reg hs2 Chart Complete ARA
--- NOTE | 2016-10-23 02:52 | EDDOCDS ---
Physician Documentation [facility] Name: Ishmael Monterroso Age: 66 yrs Sex: Male : 1950 Arrival Date: 10/20/2016 Time: 20:04 Bed OBSERVATION Private MD: Other - Complete Info On Cds Disposition: 10/21/16 01:41 Discharged to Home/Self Care. Impression: Chest pain, unspecified. - Condition is Stable. - Medication Reconciliation, Local Pharmacy Hours form. - Follow up: Kushal Ornelas MD; When: Call to arrange an appointment; Reason: Recheck today's complaints. - Problem is an ongoing problem. - Symptoms have improved. Historical: - Allergies: No known drug Allergies; - Home Meds: 1. aspirin 81 mg Oral tab 2. Zoloft 25 mg Oral tab 3. vitamins - PMHx: none; - PSHx: Cervical Discectomy; - Social history: Smoking status: Patient states was never smoker of tobacco. No barriers to communication noted, The patient speaks fluent Haitian, Speaks appropriately for age. - Family history: Not pertinent. - : The pt / caregiver states he / she is not on anticoagulants. Home medication list is obtained from the patient. - Exposure Risk Screening:: None identified. Vital Signs: 10/20 20:06 BP 128 / 86; Pulse 76; Resp 18 S; Temp 96.7(O); Pulse Ox 99% on R/A; Weight 88.45 kg / gr2 195 lbs (R); Height 5 ft. 11 in. (180.34 cm) (R); Pain 3/10; 20:16 BP 167 / 97 (auto/); mlc 20:19 Pulse 76 MON; mlc 20:31 Pulse 74 MON; mlc 20:31 BP 139 / 79 (auto/); mlc 20:46 Pulse 74 MON; mlc 20:46 BP 125 / 68 (auto/); mlc 21:01 Pulse 70 MON; mlc 21:01 BP 134 / 82 (auto/); mlc 21:16 BP 132 / 84 (auto/); mlc 21:17 Pulse 66 MON; mlc 21:31 BP 135 / 80 (auto/); mlc 21:32 Pulse 66 MON; mlc 21:47 BP 138 / 71 (auto/); mlc 21:49 Pulse 68 MON; mlc 22:01 BP 122 / 65 (auto/); mlc 22:02 Pulse 64 MON; Pulse Ox 96% ; mlc 22:16 BP 123 / 75 (auto/); mlc 22:17 Pulse 62 MON; Pulse Ox 96% ; mlc 22:31 BP 123 / 72 (auto/); mlc 22:32 Pulse 66 MON; Pulse Ox 97% ; mlc 22:46 BP 131 / 81 (auto/); mlc 22:47 Pulse 62 MON; Pulse Ox 98% ; mlc 23:01 BP 127 / 83 (auto/); mlc 23:02 Pulse 62 MON; Pulse Ox 96% ; mlc 23:16 BP 139 / 91 (auto/); mlc 23:17 Pulse 58 MON; Pulse Ox 97% ; mlc 23:31 BP 143 / 96 (auto/); mlc 23:32 Pulse 66 MON; Pulse Ox 93% ; mlc 23:46 Pulse 64 MON; Pulse Ox 96% ; mlc 23:46 BP 131 / 88 (auto/); mlc 10/21 00:01 BP 136 / 95 (auto/); mlc 00:02 Pulse 62 MON; Pulse Ox 96% ; mlc 00:16 Pulse 58 MON; Pulse Ox 97% ; mlc 00:16 BP 131 / 87 (auto/); mlc 00:31 BP 130 / 89 (auto/); mlc 00:32 Pulse 62 MON; Pulse Ox 97% ; mlc 00:46 BP 137 / 89 (auto/); mlc 00:47 Pulse 64 MON; Pulse Ox 96% ; mlc 01:07 BP 135 / 89 (auto/); mlc 01:08 Pulse 68 MON; Pulse Ox 96% ; mlc 01:16 Pulse 58 MON; Pulse Ox 96% ; mlc 01:16 BP 135 / 85 (auto/); mlc 01:31 Pulse 60 MON; Pulse Ox 95% ; mlc 01:31 BP 122 / 70 (auto/); mlc 01:49 BP 128 / 79; Pulse 60; Resp 18; Temp 97.7; Pulse Ox 98% on R/A; Pain 0/10; mlc 10/20 20:06 Body Mass Index 27.20 (88.45 kg, 180.34 cm) gr2 MDM: 10/20 20:12 ECG WITH READING ER PHYS+CARDIAG ordered. EDMS 20:29 Aspirin Chewable Tablet 81 mg PO once; 3 tabs ordered. cs11 20:30 Chest, 1 View Ordered. EDMS 20:32 CBC Ordered. EDMS 20:32 MED Profile Ordered. EDMS 20:32 Pt & Aptt Ordered. EDMS 20:32 Cardiac Marker Panel Ordered. EDMS 21:53 MED Profile Reviewed. cs11 21:53 Cardiac Marker Panel Reviewed. cs11 21:53 CBC Reviewed. cs11 21:53 Pt & Aptt Reviewed. cs11 21:54 Misc Certified Personal Finance Counselor Order ordered. cs11 22:11 Misc Certified Personal Finance Counselor Order complete. ml3 22:12 ECG WITH READING ER PHYS ordered. EDMS 22:13 CARDIAC MARKER PANEL Ordered. EDMS 23:58 Financial registration complete. hs2 10/21 00:59 [facility] Payment Agreement was scanned into [employer] and attached to record. hs2 01:38 CARDIAC MARKER PANEL Reviewed. cs11 11:56 T-Sheet-- Draft Copy was scanned into [employer] and attached to record. gb 11:57 ECG/EKG was scanned into [employer] and attached to record. gb Administered Medications: 10/20 20:34 Drug: Aspirin 81 mg [aspirin 81 mg chewable tablet (1 tabs)] Route: PO; pml Signatures: Dispatcher [employer] EDMS Jose Alfredo Fonseca RN RN cz Treva Bashir, Reg Reg gb Jh Castaneda, Ssn/Ssbn Weapons Equipment Operator Unit ml3 Patty Luke RN RN pml Case Klein, DO DO cs11 Tasneem Wolff RN RN [facility] Migdalia Noble, Reg Reg hs2 The chart was reviewed and I authenticate all verbal orders and agree with the evaluation and treatment provided.Attachments: 10/21 00:59 [facility] Payment Agreement hs2 11:56 T-Sheet-- Draft Copy gb 11:57 ECG/EKG gb Chart Complete MTDD
== END 2016-10-21 01:51 | disposition home or self-care (01) ==
LOC: M ED 20:04
DX: R07.9 Chest pain, unspecified (principal); F32.9 Major depressive disorder, single episode, unspecified

== ENCOUNTER 2016-12-06 10:29 | Emergency (ER) | payer MEDICARE, OTHER ==
[~2016-12-06] VITALS: Ht 180.3 cm; Wt 88.5 kg
[2016-12-06] MEDS ORDERED: SERT25TA (10:50)
[2016-12-06] MEDS ORDERED: VITA200015 PO (11:05)
[2016-12-06] MEDS ORDERED: MAGN400C2 PO (11:05)
[2016-12-06] MEDS ORDERED: MULT1CHW39 PO (11:05)
[2016-12-06] MEDS ORDERED: ASPI81TA85 PO (11:05)
[2016-12-06] MEDS ORDERED: ASPIRIN 81 MG CHEW TABLET PO ONE (11:15)
[2016-12-06] MEDS ORDERED: BRIL90TA PO (11:19)
[2016-12-06] MEDS ORDERED: LIPI20TA PO (11:21)
--- NOTE | 2016-12-06 11:35 | REP ---
PORTABLE CHEST, SINGLE VIEW: COMPARISON: 10/20/2016. There is no evidence of acute infiltrate. No pleural effusion is seen. The heart is normal in size. The mediastinal silhouette is unremarkable. The visualized osseous structures are intact. IMPRESSION: No acute pulmonary disease. Signed by Marty Tay MD 12/06/2016 05:03 P
[2016-12-06 11:50] LABS: BASO % 0.4 % (0.0-1.0); EOS # 0.2 K/mm3 (0.0-0.50); EOS % 4.3 % (0.0-3.0); LARGE UNSTAINED CELL # 0.1 K/mm3 (0.0-0.4); LYMPH # 2.2 K/mm3 (1.5-4.5); LYMPH % 35.3 % (24.0-44.0); MEAN CORPUSCULAR HGB CONC 33.8 g/dl (32.0-36.5); MEAN CORPUSCULAR VOLUME 88.8 fl (80.0-96.0); MONO # 0.2 K/mm3 (0.0-0.8); NEUTROPHILS # 3.2 K/mm3 (1.8-7.7); PLATELET COUNT, AUTOMATED 161 k/mm3 (150-450); WHITE BLOOD COUNT 5.9 K/mm3 (4.0-10.0)
[2016-12-06 12:08] LABS: ALBUMIN 4.1 GM/DL (3.2-5.2); ALBUMIN/GLOBULIN RATIO 1.46 (1.00-1.93); ALKALINE PHOSPHATASE 60 U/L (45-117); ALT/SGPT 45 U/L (12-78); ANION GAP 10 MEQ/L (8-16); AST/SGOT 34 U/L (15-37); BILIRUBIN,DIRECT 0.1 MG/DL (0.0-0.2); BILIRUBIN,TOTAL 0.5 MG/DL (0.2-1.0); BLOOD UREA NITROGEN 17 MG/DL (7-18); CALCIUM LEVEL 8.5 MG/DL (8.8-10.2); CARBON DIOXIDE LEVEL 26 MEQ/L (21-32); CHLORIDE LEVEL 107 MEQ/L (98-107); CREATININE FOR GFR 1.06 MG/DL (0.70-1.30); FREE T4 1.11 NG/DL (0.76-1.46); GLOMERULAR FILTRATION RATE > 60.0 (>49); GLUCOSE, FASTING 91 MG/DL (80-110); POTASSIUM SERUM 4.3 MEQ/L (3.5-5.1); SODIUM LEVEL 143 MEQ/L (136-145); TOTAL PROTEIN 6.9 GM/DL (6.4-8.2)
[2016-12-06 16:26] VITALS: BP 114/72
--- NOTE | 2016-12-07 10:27 | ECGEPIP ---
Stationary ECG Study [facility] - ED Test Date: 2016-12-06 Pat Name: MASON TURCIOS Department: Room: - Gender: M Color Checker: amaury : 1950 Requested By: Kellie Zambrano Order Number: [id number] Reading MD: Ryan Vora Measurements Intervals [place] Rate: 66 P: 14 SD: 150 QRS: 11 QRSD: 103 T: -12 QT: 384 QTc: 403 Interpretive Statements SINUS RHYTHM NONSPECIFIC T WAVE ABNORMALITIES SIMILAR TO 10/21/16 Electronically Signed On 12-07-2016 10:26:42 EST by Ryan Vora
--- NOTE | 2016-12-07 10:38 | ECGEPIP ---
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
== END 2016-12-06 16:32 | disposition home or self-care (01) ==
LOC: M ED 10:29
DX: R07.9 Chest pain, unspecified (principal); I25.10 Atherosclerotic heart disease of native coronary artery without angina pectoris; F17.210 Nicotine dependence, cigarettes, uncomplicated; Z79.82 Long term (current) use of aspirin; Z79.899 Other long term (current) drug therapy; Z95.5 Presence of coronary angioplasty implant and graft; E78.00 Pure hypercholesterolemia, unspecified

== ENCOUNTER → 2017-03-08 | Outpatient (RCR) | payer MEDICARE, OTHER ==
[~2017-03-08] MED LIST: ASPI81TA85 PO; BRIL90TA PO; LIPI20TA PO; MAGN400C2 PO; MULT1CHW39 PO; SERT25TA; VITA200015 PO
== END ==
LOC: M CR 02-06 12:47
PROVIDERS: ATTEND Internal Medicine Cardiovascular Disease
DX: Z95.1 Presence of aortocoronary bypass graft (principal)

== ENCOUNTER 2017-04-05 13:46 | Outpatient (RCR) | payer MEDICARE, OTHER | END 2017-04-07 | LOC: M CR 13:46 | PROVIDERS: ATTEND Internal Medicine Cardiovascular Disease | DX: Z95.1 Presence of aortocoronary bypass graft (principal) ==

== ENCOUNTER 2017-05-01 14:00 | Outpatient (RCR) | payer MEDICARE, OTHER | END 2017-05-08 | LOC: M CR 14:00 | PROVIDERS: ATTEND Internal Medicine Cardiovascular Disease | DX: Z95.1 Presence of aortocoronary bypass graft (principal) ==

== ENCOUNTER → 2017-07-27 | Outpatient (CLI) | payer MEDICARE, OTHER ==
--- NOTE | 2017-07-27 11:28 | REP ---
LEFT KNEE, FIVE VIEWS: HISTORY: Pain. There is no acute fracture or dislocation. The joint spaces are normal in appearance. Small osteophytes are present on the patella and tibia. IMPRESSION: There is no acute fracture or dislocation. Signed by Mark Lama MD 07/27/2017 11:30 A
== END ==
LOC: M WUC 10:55
PROVIDERS: ATTEND Physician Assistant
DX: M25.562 Pain in left knee (principal)

== ENCOUNTER → 2017-10-13 | Outpatient (CLI) | payer MEDICARE, OTHER | LOC: M WUC 16:19 | DX: M54.6 Pain in thoracic spine (principal); S29.011A Strain of muscle and tendon of front wall of thorax, initial encounter; W18.30XA Fall on same level, unspecified, initial encounter; Y92.009 Unspecified place in unspecified non-institutional (private) residence as the place of occurrence of the external cause | CPT/HCPCS: 71046 ==

== ENCOUNTER → 2017-12-06 | Outpatient (CLI) | payer MEDICARE, OTHER ==
[2017-12-06 13:07] LABS: BASO % 0.3 % (0.0-1.0); EOS # 0.1 10^3/uL (0.0-0.50); EOS % 0.8 % (0.0-3.0); HEMATOCRIT 43.7 % (42.0-52.0); HEMOGLOBIN 14.5 g/dl (14.0-18.0); IMMATURE GRANULOCYTE % 0.6 % (0-3.0); LYMPH # 2.6 10^3/uL (1.5-4.5); LYMPH % 21.9 % (24.0-44.0); MEAN CORPUSCULAR HEMOGLOBIN 29.3 pg (27.0-33.0); MEAN CORPUSCULAR HGB CONC 33.2 g/dl (32.0-36.5); MEAN CORPUSCULAR VOLUME 88.3 fl (80.0-96.0); MONO # 0.8 10^3/uL (0.0-0.8); NEUTROPHILS # 8.3 10^3/uL (1.8-7.7); NEUTROPHILS % 69.4 % (36.0-66.0); PLATELET COUNT, AUTOMATED 170 10^3/uL (150-450); RED BLOOD COUNT 4.95 10^6/uL (4.30-6.10)
[2017-12-06 13:47] LABS: ALBUMIN 3.7 GM/DL (3.2-5.2); ALBUMIN/GLOBULIN RATIO 1.37 (1.00-1.93); ALKALINE PHOSPHATASE 52 U/L (45-117); ALT/SGPT 33 U/L (12-78); ANION GAP 5 MEQ/L (8-16); AST/SGOT 28 U/L (7-37); BILIRUBIN,TOTAL 1.1 MG/DL (0.2-1.0); BLOOD UREA NITROGEN 14 MG/DL (7-18); CALCIUM LEVEL 8.5 MG/DL (8.8-10.2); CARBON DIOXIDE LEVEL 30 MEQ/L (21-32); CHLORIDE LEVEL 106 MEQ/L (98-107); CREATININE FOR GFR 0.86 MG/DL (0.70-1.30); GLOMERULAR FILTRATION RATE > 60.0 (>49); GLUCOSE, FASTING 79 MG/DL (70-100); POTASSIUM SERUM 4.1 MEQ/L (3.5-5.1); SODIUM LEVEL 141 MEQ/L (136-145); TOTAL PROTEIN 6.4 GM/DL (6.4-8.2)
== END ==
LOC: M WUC 10:47
DX: R30.0 Dysuria (principal)
CPT/HCPCS: 80053

== ENCOUNTER 2019-09-13 19:39 | Emergency (ER) | payer MEDICARE, OTHER ==
[~2019-09-13] VITALS: Ht 177.8 cm; Wt 90.9 kg
[~2019-09-13 19:39] MED LIST changes: +COQ PO; +CRES20TA2 PO; +HYOS1TAB PO; -MULT1CHW39 PO; +MULT200T7 PO; +NITR0.4S14 SL; -SERT25TA; +SERT25TA85
--- NOTE | 2019-09-13 20:10 | ECGEPIP ---
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
[2019-09-13] MEDS ORDERED: WELL100T2 PO (20:12)
[2019-09-13] MEDS ORDERED: NS 1,000 ML IV ONE (20:15)
[2019-09-13 20:30] LABS: HEMATOCRIT 45.7 % (42.0-52.0); HEMOGLOBIN 14.9 g/dl (13.5-17.5); MEAN CORPUSCULAR HEMOGLOBIN 29.2 pg (27.0-33.0); MEAN CORPUSCULAR HGB CONC 32.6 g/dl (32.0-36.5); MEAN CORPUSCULAR VOLUME 89.6 fl (80.0-96.0); PLATELET COUNT, AUTOMATED 183 10^3/uL (150-450); WHITE BLOOD COUNT 6.6 10^3/uL (4.0-10.0)
[2019-09-13 20:59] LABS: ALBUMIN 3.8 GM/DL (3.2-5.2); ALT/SGPT 37 U/L (12-78); BILIRUBIN,TOTAL 0.7 MG/DL (0.2-1.0); BLOOD UREA NITROGEN 16 MG/DL (7-18); CALCIUM LEVEL 8.8 MG/DL (8.8-10.2); CARBON DIOXIDE LEVEL 28 MEQ/L (21-32); CHLORIDE LEVEL 107 MEQ/L (98-107); CK-MB VALUE MASS 3.8 NG/ML (<3.6); CPK CREATINE PHOSPHOKINASE 224 U/L (39-308); GLOMERULAR FILTRATION RATE 53.2 (>42); GLUCOSE, FASTING 89 MG/DL (70-100); SODIUM LEVEL 142 MEQ/L (136-145); TOTAL PROTEIN 6.1 GM/DL (6.4-8.2); TROPONIN I < 0.02 NG/ML (< 0.10)
[2019-09-13 21:38] LABS: MAGNESIUM LEVEL 2.2 MG/DL (1.8-2.4)
[2019-09-13] MEDS ORDERED: NEUR100C PO (21:57)
[2019-09-13] MEDS ORDERED: GABAPENTIN 100 MG CAP PO STA (22:08)
[2019-09-13 22:14] VITALS: BP 133/62
--- NOTE | 2019-09-14 08:37 | REP ---
AP PORTABLE CHEST: 09/13/2019 COMPARISON: 10/13/2017 CLINICAL HISTORY: Presyncope. FINDINGS: The lung dela cruz are well inflated and without pleural effusion, lateral pleural thickening, apical scarring, or pneumothorax. The heart, mediastinal and hilar contours are normal. The aorta and airway are intact. The bony thorax shows no focal lesion. IMPRESSION: 1. No acute cardiopulmonary change. Electronically Signed by Tony Erickson MD 09/14/2019 07:41 P
== END 2019-09-13 22:25 | disposition home or self-care (01) ==
LOC: M ED 19:39
DX: R55 Syncope and collapse (principal); E78.5 Hyperlipidemia, unspecified; Z95.0 Presence of cardiac pacemaker; Z95.5 Presence of coronary angioplasty implant and graft; Z79.899 Other long term (current) drug therapy; Z79.82 Long term (current) use of aspirin

== ENCOUNTER → 2019-10-10 | Outpatient (REF) | payer MEDICARE, OTHER ==
[~2019-10-10] MED LIST changes: +NEUR100C PO; +WELL100T2 PO
[2019-10-10 14:35] LABS: BLOOD UREA NITROGEN 12 MG/DL (7-18); CARBON DIOXIDE LEVEL 29 MEQ/L (21-32); CHLORIDE LEVEL 108 MEQ/L (98-107); CREATININE FOR GFR 1.12 MG/DL (0.70-1.30); GLOMERULAR FILTRATION RATE > 60.0 (>42); GLUCOSE, FASTING 65 MG/DL (70-100); POTASSIUM SERUM 4.6 MEQ/L (3.5-5.1); SODIUM LEVEL 142 MEQ/L (136-145)
== END ==
LOC: M SFHCPLAZ 11:49
PROVIDERS: ATTEND Family Medicine
DX: R94.4 Abnormal results of kidney function studies (principal)
CPT/HCPCS: 36415; 80048; G0463

== ENCOUNTER → 2019-10-26 | Outpatient (CLI) | payer MEDICARE, OTHER | LOC: M WUC 10:32 | PROVIDERS: ATTEND Physician Assistant | DX: R21 Rash and other nonspecific skin eruption (principal) ==

== ENCOUNTER → 2019-11-05 | Outpatient (CLI) | payer MEDICARE, OTHER ==
--- NOTE | 2019-11-05 12:46 | REP ---
Left femur four views : There is no fracture or dislocation. Mineralization and joint spaces are normal. There are no calcifications or foreign bodies. Impression: Negative left femur . Electronically Signed by Marty Aguirre MD 11/05/2019 12:37 P
[2019-11-05 13:34] LABS: BASO % 0.7 % (0.0-1.0); EOS # 0.2 10^3/uL (0.0-0.5); EOS % 3.3 % (0.0-3.0); HEMATOCRIT 48.3 % (42.0-52.0); HEMOGLOBIN 15.3 g/dl (13.5-17.5); LYMPH # 1.7 10^3/uL (1.5-5.0); LYMPH % 28.9 % (24.0-44.0); MEAN CORPUSCULAR HEMOGLOBIN 29.5 pg (27.0-33.0); MEAN CORPUSCULAR HGB CONC 31.7 g/dl (32.0-36.5); MEAN CORPUSCULAR VOLUME 93.1 fl (80.0-96.0); MONO # 0.4 10^3/uL (0.0-0.8); MONO % 6.8 % (0.0-5.0); NEUTROPHILS # 3.4 10^3/uL (1.5-8.5); PLATELET COUNT, AUTOMATED 199 10^3/uL (150-450); RED BLOOD COUNT 5.19 10^6/uL (4.30-6.10); WHITE BLOOD COUNT 5.7 10^3/uL (4.0-10.0)
[2019-11-05 13:59] LABS: ALBUMIN 3.8 GM/DL (3.2-5.2); ALT/SGPT 29 U/L (12-78); BILIRUBIN,TOTAL 0.5 MG/DL (0.2-1.0); BLOOD UREA NITROGEN 15 MG/DL (7-18); C REACTIVE PROTEIN QUANTITATIV < 0.30 MG/DL (0.00-0.30); CALCIUM LEVEL 9.3 MG/DL (8.8-10.2); CARBON DIOXIDE LEVEL 29 MEQ/L (21-32); CHLORIDE LEVEL 108 MEQ/L (98-107); CREATININE FOR GFR 1.15 MG/DL (0.70-1.30); GLOMERULAR FILTRATION RATE > 60.0 (>42); GLUCOSE, FASTING 90 MG/DL (70-100); POTASSIUM SERUM 4.2 MEQ/L (3.5-5.1); SODIUM LEVEL 143 MEQ/L (136-145); TOTAL PROTEIN 6.2 GM/DL (6.4-8.2)
[2019-11-05 14:41] LABS: ERYTHROCYTE SEDIMENTATION RATE 4 mm/hr (0-20)
[2019-11-07 00:07] LABS: Lyme Disease IgG/IgM Antibodie <0.91 ISR (0.00-0.90); Lyme Disease IgM Ab Quantitati <0.80 index (0.00-0.79)
== END ==
LOC: M WUC 09:20
PROVIDERS: ATTEND Physician Assistant
DX: M79.605 Pain in left leg (principal)

== ENCOUNTER → 2020-01-28 | Outpatient (CLI) | payer MEDICARE, OTHER ==
--- NOTE | 2020-01-28 12:43 | REP ---
REASON: Trauma. There is a transverse fracture involving the base of the radial head. There is a concomitant joint effusion. Electronically Signed by Arturo Galaviz DO 01/28/2020 01:25 P
--- NOTE | 2020-01-28 12:46 | REP ---
REASON FOR EXAM: Pain after trauma. PRIORS: None. There are soft tissue calcifications seen in the lateral soft tissues. Degenerative change seen involving the 1st and 2nd carpometacarpal joints. There is no evidence of an acute fracture. Electronically Signed by Arturo Galaviz DO 01/28/2020 01:25 P
== END ==
LOC: M WUC 09:57
PROVIDERS: ATTEND Physician Assistant
DX: S52.121A Displaced fracture of head of right radius, initial encounter for closed fracture (principal); X58.XXXA Exposure to other specified factors, initial encounter; Y92.9 Unspecified place or not applicable; M19.031 Primary osteoarthritis, right wrist

== ENCOUNTER → 2022-03-08 | Outpatient (CLI) | payer OTHER, MEDICARE ==
[~2022-03-08] MED LIST changes: -ASPI81TA85 PO; +ASPI81TA86 PO
== END ==
LOC: M PAIN 08:30
PROVIDERS: ATTEND Nurse Practitioner Family
DX: M51.16 Intervertebral disc disorders with radiculopathy, lumbar region (principal); G89.29 Other chronic pain; R73.03 Prediabetes; Z86.59 Personal history of other mental and behavioral disorders; Z79.82 Long term (current) use of aspirin; Z79.899 Other long term (current) drug therapy

== ENCOUNTER → 2022-05-03 | Outpatient (CLI) | payer OTHER, MEDICARE | LOC: M PAIN 09:30 | PROVIDERS: ATTEND Nurse Practitioner Family | DX: M51.16 Intervertebral disc disorders with radiculopathy, lumbar region (principal); G89.29 Other chronic pain; R73.03 Prediabetes; Z86.59 Personal history of other mental and behavioral disorders; Z79.82 Long term (current) use of aspirin; Z79.899 Other long term (current) drug therapy ==

== ENCOUNTER → 2022-06-07 | Outpatient (CLI) | payer MEDICARE, OTHER | LOC: M PAIN 09:00 | PROVIDERS: ATTEND Anesthesiology | DX: M51.16 Intervertebral disc disorders with radiculopathy, lumbar region (principal); M48.062 Spinal stenosis, lumbar region with neurogenic claudication; G89.29 Other chronic pain; Z86.59 Personal history of other mental and behavioral disorders; Z79.82 Long term (current) use of aspirin; Z79.899 Other long term (current) drug therapy ==

== ENCOUNTER 2023-01-05 06:50 | Emergency (ER) | payer MEDICARE, OTHER ==
[~2023-01-05] VITALS: Ht 177.8 cm; Wt 94.5 kg
[2023-01-05] MEDS ORDERED: diphenhydrAMINE 25MG CAP PO ONE (08:40)
[2023-01-05] MEDS: ALBUTEROL SULFATE 2.5MG/0.5ML INH NEB SOLN NEB ONE ×2 (08:40→09:01)
[2023-01-05] MEDS ORDERED: BENA25CA4 PO (09:52)
[2023-01-05 09:56] VITALS: BP 136/90
== END 2023-01-05 10:05 | disposition home or self-care (01) ==
LOC: M ED 06:50
DX: R05.9 Cough, unspecified (principal); E78.00 Pure hypercholesterolemia, unspecified; K21.9 Gastro-esophageal reflux disease without esophagitis; Z79.82 Long term (current) use of aspirin; Z79.899 Other long term (current) drug therapy

== ENCOUNTER → 2023-03-09 | Outpatient (CLI) | payer MEDICARE, OTHER ==
[~2023-03-09] MED LIST changes: +BENA25CA4 PO
[2023-03-09 15:51] LABS: BASO % 0.4 % (0.0-1.0); EOS # 0.2 10^3/uL (0.0-0.5); EOS % 3.6 % (0.0-3.0); HEMATOCRIT 44.8 % (42.0-52.0); HEMOGLOBIN 14.5 g/dl (13.5-17.5); LYMPH # 1.9 10^3/uL (1.5-5.0); LYMPH % 38.3 % (24.0-44.0); MEAN CORPUSCULAR HEMOGLOBIN 28.9 pg (27.0-33.0); MEAN CORPUSCULAR HGB CONC 32.4 g/dl (32.0-36.5); MEAN CORPUSCULAR VOLUME 89.2 fl (80.0-96.0); MONO # 0.4 10^3/uL (0.0-0.8); MONO % 7.3 % (2.0-8.0); NEUTROPHILS # 2.5 10^3/uL (1.5-8.5); NEUTROPHILS % 50.2 % (36.0-66.0); PLATELET COUNT, AUTOMATED 185 10^3/uL (150-450); RED BLOOD COUNT 5.02 10^6/uL (4.30-6.10); WHITE BLOOD COUNT 5.1 10^3/uL (4.0-10.0)
[2023-03-09 16:01] LABS: ERYTHROCYTE SEDIMENTATION RATE 2 mm/hr (0-20)
[2023-03-09 16:27] LABS: ALBUMIN 3.8 G/DL (3.2-5.2); ALKALINE PHOSPHATASE 51 U/L (46-116); ALT/SGPT 26 U/L (7.0-40); AST/SGOT 21 U/L (<34); BILIRUBIN,TOTAL 0.8 MG/DL (0.3-1.2); BLOOD UREA NITROGEN 17 MG/DL (9-23); CALCIUM LEVEL 8.7 MG/DL (8.3-10.6); CARBON DIOXIDE LEVEL 27 MMOL/L (20-31); CHLORIDE LEVEL 109 MMOL/L (98-107); GLOMERULAR FILTRATION RATE > 60.0 (>42); GLUCOSE, FASTING 91 MG/DL (74-106); MAGNESIUM LEVEL 1.8 MG/DL (1.8-2.4); POTASSIUM SERUM 4.4 MMOL/L (3.5-5.1); SODIUM LEVEL 142 MMOL/L (136-145); TOTAL PROTEIN 5.7 G/DL (5.7-8.2)
[2023-03-09 16:29] LABS: FREE T4 1.19 NG/DL (0.89-1.76); THYROID STIMULATING HORMONE 2.598 uIU/ML (0.55-4.78); TOTAL 25(OH) VITAMIN D 35.6 NG/ML (20.0-100.0)
[2023-03-13 15:07] LABS: ANA (HEP2) Negative (.); CYCLIC CITRULLINATED PEPTIDE 3 units (0-19)
== END ==
LOC: M PLALAB 14:09
PROVIDERS: ATTEND Physician Assistant
DX: M25.50 Pain in unspecified joint (principal); R53.83 Other fatigue; Z79.899 Other long term (current) drug therapy

== ENCOUNTER → 2023-06-20 | Outpatient (CLI) | payer MEDICARE, OTHER ==
[2023-06-20 19:33] LABS: BASO # 0.1 10^3/uL (0.0-0.2); BASO % 0.9 % (0.0-1.0); EOS # 0.2 10^3/uL (0.0-0.5); EOS % 4.1 % (0.0-3.0); HEMATOCRIT 44.2 % (42.0-52.0); HEMOGLOBIN 14.1 g/dl (13.5-17.5); LYMPH % 38.1 % (24.0-44.0); MEAN CORPUSCULAR HEMOGLOBIN 28.5 pg (27.0-33.0); MEAN CORPUSCULAR HGB CONC 31.9 g/dl (32.0-36.5); MEAN CORPUSCULAR VOLUME 89.5 fl (80.0-96.0); MONO # 0.5 10^3/uL (0.0-0.8); MONO % 9.5 % (2.0-8.0); NEUTROPHILS # 2.5 10^3/uL (1.5-8.5); NEUTROPHILS % 47.2 % (36.0-66.0); PLATELET COUNT, AUTOMATED 188 10^3/uL (150-450); RED BLOOD COUNT 4.94 10^6/uL (4.30-6.10); WHITE BLOOD COUNT 5.4 10^3/uL (4.0-10.0)
[2023-06-20 19:55] LABS: ALBUMIN 3.6 G/DL (3.2-5.2); ALKALINE PHOSPHATASE 46 U/L (46-116); ALT/SGPT 32 U/L (7.0-40); AST/SGOT 21 U/L (<34); BLOOD UREA NITROGEN 14 MG/DL (9-23); CALCIUM LEVEL 8.7 MG/DL (8.3-10.6); CARBON DIOXIDE LEVEL 30 MMOL/L (20-31); CHLORIDE LEVEL 106 MMOL/L (98-107); CREATININE FOR GFR 1.07 MG/DL (0.70-1.30); GLOMERULAR FILTRATION RATE > 60.0 (>42); GLUCOSE, FASTING 77 MG/DL (74-106); POTASSIUM SERUM 4.3 MMOL/L (3.5-5.1); SODIUM LEVEL 144 MMOL/L (136-145); TOTAL PROTEIN 5.5 G/DL (5.7-8.2)
[2023-06-20 20:14] LABS: ERYTHROCYTE SEDIMENTATION RATE 1 mm/hr (0-20)
[2023-06-22 08:48] LABS: C REACTIVE PROTEIN QUANTITATIV < 0.40 MG/DL (<1.0)
== END ==
LOC: M PLALAB 16:15
PROVIDERS: ATTEND Physician Assistant
DX: R53.83 Other fatigue (principal); M25.50 Pain in unspecified joint

== ENCOUNTER → 2023-06-22 | Outpatient (CLI) | payer MEDICARE, OTHER | LOC: M PLARAD 09:18 | PROVIDERS: ATTEND Physician Assistant | DX: G31.9 Degenerative disease of nervous system, unspecified (principal); J32.1 Chronic frontal sinusitis; J32.2 Chronic ethmoidal sinusitis; R25.9 Unspecified abnormal involuntary movements ==

== ENCOUNTER → 2023-09-04 | Outpatient (CLI) | payer MEDICARE, OTHER | LOC: M RAD 13:21 | PROVIDERS: ATTEND Physician Assistant | DX: R09.A2 Foreign body sensation, throat (principal) ==

== ENCOUNTER → 2023-10-24 | Outpatient (CLI) | payer MEDICARE, OTHER ==
[~2023-10-24] MED LIST changes: +BARIUM SULFATE 700 MG TABLET (E-Z-DISK) As Ordered ONE; +E-Z-PAQUE 96% w/w SUSP 176GM BTL As Ordered ONE; +VARIBAR NECTAR 40% w/v 240ML SUSP BTL As Ordered ONE; +VARIBAR PUDDING 40% w/v 230ML TUBE As Ordered ONE
== END ==
LOC: M RAD 12:37
PROVIDERS: ATTEND Physician Assistant
DX: R13.13 Dysphagia, pharyngeal phase (principal)

== ENCOUNTER 2023-11-30 05:24 | Emergency (ER) | payer MEDICARE, OTHER ==
[~2023-11-30] VITALS: Ht 177.8 cm; Wt 91.8 kg
[~2023-11-30 05:24] MED LIST changes: -BARIUM SULFATE 700 MG TABLET (E-Z-DISK) As Ordered ONE; -E-Z-PAQUE 96% w/w SUSP 176GM BTL As Ordered ONE; -VARIBAR NECTAR 40% w/v 240ML SUSP BTL As Ordered ONE; -VARIBAR PUDDING 40% w/v 230ML TUBE As Ordered ONE
[2023-11-30 07:54] LABS: BASO % 0.5 % (0.0-1.0); EOS # 0.2 10^3/uL (0.0-0.5); EOS % 3.8 % (0.0-3.0); HEMATOCRIT 45.9 % (42.0-52.0); LYMPH # 1.9 10^3/uL (1.5-5.0); LYMPH % 33.1 % (24.0-44.0); MEAN CORPUSCULAR HEMOGLOBIN 28.9 pg (27.0-33.0); MEAN CORPUSCULAR HGB CONC 32.7 g/dl (32.0-36.5); MEAN CORPUSCULAR VOLUME 88.4 fl (80.0-96.0); MONO # 0.4 10^3/uL (0.0-0.8); MONO % 6.1 % (2.0-8.0); NEUTROPHILS # 3.2 10^3/uL (1.5-8.5); NEUTROPHILS % 56.2 % (36.0-66.0); PLATELET COUNT, AUTOMATED 191 10^3/uL (150-450); RED BLOOD COUNT 5.19 10^6/uL (4.30-6.10); WHITE BLOOD COUNT 5.7 10^3/uL (4.0-10.0)
[2023-11-30 08:14] LABS: LIPASE 44 U/L (12-53)
[2023-11-30] MEDS ORDERED: ISOVUE-370 76% 100ML VIAL As Ordered ONE (08:16)
[2023-11-30 08:17] LABS: ALBUMIN 3.6 G/DL (3.2-5.2); ALKALINE PHOSPHATASE 52 U/L (46-116); ALT/SGPT 18 U/L (7.0-40); AST/SGOT 16 U/L (<34); BILIRUBIN,DIRECT 0.3 MG/DL (<0.4); BILIRUBIN,TOTAL 0.7 MG/DL (0.3-1.2); BLOOD UREA NITROGEN 14 MG/DL (9-23); CALCIUM LEVEL 8.9 MG/DL (8.3-10.6); CARBON DIOXIDE LEVEL 28 MMOL/L (20-31); CHLORIDE LEVEL 108 MMOL/L (98-107); CREATININE FOR GFR 0.99 MG/DL (0.70-1.30); GLOMERULAR FILTRATION RATE > 60.0 (>42); GLUCOSE, FASTING 94 MG/DL (74-106); POTASSIUM SERUM 4.2 MMOL/L (3.5-5.1); SODIUM LEVEL 142 MMOL/L (136-145); TOTAL PROTEIN 5.7 G/DL (5.7-8.2)
[2023-11-30] MEDS ORDERED: FLEET OIL RETENTION ENEMA PR PRN (09:05)
[2023-11-30] MEDS: LACTULOSE 20GM/30ML SYRUP UDC PO ONE (09:22)
[2023-11-30] MEDS: FLEET OIL RETENTION ENEMA PR STA (09:23)
[2023-11-30 09:49] VITALS: BP 126/82; TEMP 97.6; O2SAT 96
[2023-11-30] MEDS ORDERED: COLA100C5 PO (09:59)
[2023-11-30] MEDS ORDERED: LACT10SO3 PO (09:59)
== END 2023-11-30 10:19 | disposition home or self-care (01) ==
LOC: M ED 05:24
DX: K59.00 Constipation, unspecified (principal); K21.9 Gastro-esophageal reflux disease without esophagitis; E78.5 Hyperlipidemia, unspecified; Z86.79 Personal history of other diseases of the circulatory system; Z86.73 Personal history of transient ischemic attack (TIA), and cerebral infarction without residual deficits; Z79.82 Long term (current) use of aspirin; Z79.891 Long term (current) use of opiate analgesic; Z79.899 Other long term (current) drug therapy; F10.10 Alcohol abuse, uncomplicated
CPT/HCPCS: 74019; 74177; 80047; 80048; 80076; 81001; 83690; 85025; 99284; Q9967

== ENCOUNTER 2023-11-30 16:18 | Emergency (ER) | payer MEDICARE, OTHER ==
[~2023-11-30] VITALS: Ht 177.8 cm; Wt 91.7 kg
[~2023-11-30 16:18] MED LIST changes: +COLA100C5 PO; +LACT10SO3 PO
[2023-11-30] MEDS: MAGNESIUM CITRATE 300ML BTL PO ONE (18:57)
[2023-11-30 22:29] VITALS: BP 148/72; TEMP 97.9; O2SAT 99
== END 2023-11-30 22:37 | disposition home or self-care (01) ==
LOC: M ED 16:18
DX: R10.9 Unspecified abdominal pain (principal); K21.9 Gastro-esophageal reflux disease without esophagitis; E78.5 Hyperlipidemia, unspecified; F10.10 Alcohol abuse, uncomplicated; Z79.82 Long term (current) use of aspirin; Z79.891 Long term (current) use of opiate analgesic; Z79.899 Other long term (current) drug therapy

== ENCOUNTER 2023-12-03 15:43 | Emergency (ER) | payer MEDICARE, OTHER ==
[~2023-12-03] VITALS: Ht 177.8 cm; Wt 90.2 kg
[2023-12-03 20:30] LABS: BASO % 0.5 % (0.0-1.0); EOS # 0.1 10^3/uL (0.0-0.5); EOS % 1.9 % (0.0-3.0); HEMATOCRIT 43.5 % (42.0-52.0); LYMPH # 1.9 10^3/uL (1.5-5.0); LYMPH % 29.9 % (24.0-44.0); MEAN CORPUSCULAR HEMOGLOBIN 28.5 pg (27.0-33.0); MEAN CORPUSCULAR HGB CONC 32.2 g/dl (32.0-36.5); MEAN CORPUSCULAR VOLUME 88.4 fl (80.0-96.0); MONO # 0.3 10^3/uL (0.0-0.8); MONO % 5.1 % (2.0-8.0); NEUTROPHILS % 62.3 % (36.0-66.0); PLATELET COUNT, AUTOMATED 188 10^3/uL (150-450); RED BLOOD COUNT 4.92 10^6/uL (4.30-6.10); WHITE BLOOD COUNT 6.5 10^3/uL (4.0-10.0)
[2023-12-03 20:59] LABS: ALBUMIN 3.5 G/DL (3.2-5.2); BILIRUBIN,DIRECT 0.4 MG/DL (<0.4); BILIRUBIN,TOTAL 0.8 MG/DL (0.3-1.2); TOTAL PROTEIN 5.6 G/DL (5.7-8.2)
[2023-12-03] MEDS: FLEET OIL RETENTION ENEMA PR STA (21:11)
[2023-12-03] MEDS ORDERED: MOM 30ML SUSPENSION UDC PO ONE (23:45)
[2023-12-04] MEDS: MAGNESIUM CITRATE 300ML BTL PO ONE (00:28)
[2023-12-04 01:00] VITALS: BP 140/93; TEMP 96.1; O2SAT 100
[2023-12-04] MEDS ORDERED: BISA10SU27 PR (01:37)
== END 2023-12-04 01:50 | disposition home or self-care (01) ==
LOC: M ED 15:43
DX: K59.00 Constipation, unspecified (principal); F10.10 Alcohol abuse, uncomplicated; Z79.82 Long term (current) use of aspirin; Z79.891 Long term (current) use of opiate analgesic; Z79.899 Other long term (current) drug therapy

== ENCOUNTER 2023-12-08 12:49 | Emergency (ER) | payer MEDICARE, OTHER ==
[~2023-12-08] VITALS: Ht 177.8 cm; Wt 85.9 kg
[~2023-12-08 12:49] MED LIST changes: +BISA10SU27 PR
[2023-12-08 15:14] LABS: INR 1.13; PROTHROMBIN TIME 14.2 SECONDS (12.5-14.5)
[2023-12-08 15:18] LABS: BASO % 0.4 % (0.0-1.0); EOS # 0.1 10^3/uL (0.0-0.5); EOS % 1.7 % (0.0-3.0); HEMATOCRIT 44.8 % (42.0-52.0); HEMOGLOBIN 14.8 g/dl (13.5-17.5); LYMPH % 27.4 % (24.0-44.0); MEAN CORPUSCULAR HEMOGLOBIN 29.1 pg (27.0-33.0); MONO # 0.4 10^3/uL (0.0-0.8); MONO % 5.3 % (2.0-8.0); NEUTROPHILS # 4.6 10^3/uL (1.5-8.5); NEUTROPHILS % 64.8 % (36.0-66.0); PLATELET COUNT, AUTOMATED 220 10^3/uL (150-450); RED BLOOD COUNT 5.09 10^6/uL (4.30-6.10); WHITE BLOOD COUNT 7.2 10^3/uL (4.0-10.0)
[2023-12-08 15:27] LABS: LIPASE 24 U/L (12-53)
[2023-12-08 15:29] LABS: ALBUMIN 3.7 G/DL (3.2-5.2); ALKALINE PHOSPHATASE 73 U/L (46-116); ALT/SGPT 19 U/L (7.0-40); AMYLASE 34 U/L (30-118); AST/SGOT 16 U/L (<34); BILIRUBIN,DIRECT 0.8 MG/DL (<0.4); BILIRUBIN,TOTAL 1.7 MG/DL (0.3-1.2); BLOOD UREA NITROGEN 16 MG/DL (9-23); CARBON DIOXIDE LEVEL 28 MMOL/L (20-31); CHLORIDE LEVEL 106 MMOL/L (98-107); CREATININE FOR GFR 1.07 MG/DL (0.70-1.30); GLOMERULAR FILTRATION RATE > 60.0 (>42); GLUCOSE, FASTING 88 MG/DL (74-106); POTASSIUM SERUM 4.2 MMOL/L (3.5-5.1); SODIUM LEVEL 140 MMOL/L (136-145)
[2023-12-08] MEDS: SIMETHICONE 80MG CHEW TAB PO ONE (18:18)
[2023-12-08] MEDS ORDERED: SIME180C25 PO (19:37)
[2023-12-08] MEDS ORDERED: ANEC4CRE3 TOP (19:37)
[2023-12-08] MEDS ORDERED: MIRA3350 PO (19:37)
[2023-12-08] MEDS ORDERED: PROC1CRE5 PR (19:37)
[2023-12-08 19:56] VITALS: BP 156/84; TEMP 99.4; O2SAT 99
== END 2023-12-08 20:03 | disposition home or self-care (01) ==
LOC: M ED 12:49
DX: K59.00 Constipation, unspecified (principal); K64.8 Other hemorrhoids; K80.66 Calculus of gallbladder and bile duct with acute and chronic cholecystitis without obstruction; K21.9 Gastro-esophageal reflux disease without esophagitis; E78.5 Hyperlipidemia, unspecified; F10.10 Alcohol abuse, uncomplicated; Z79.82 Long term (current) use of aspirin; Z79.891 Long term (current) use of opiate analgesic; Z79.899 Other long term (current) drug therapy

== ENCOUNTER 2023-12-28 03:57 | Emergency (ER) | payer MEDICARE, OTHER ==
[~2023-12-28 03:57] MED LIST changes: -ASPI81TA26 PO; -D3 S20002 PO; -DICY-61 PO; -DICY1CAP8 PO; -GABA-282 PO; -MM S100C PO; -OXYB5TAB14 PO; -PHEN-501 PO
[2023-12-28 07:23] LABS: BASO % 0.5 % (0.0-1.0); EOS # 0.2 10^3/uL (0.0-0.5); EOS % 2.5 % (0.0-3.0); HEMATOCRIT 43.3 % (42.0-52.0); HEMOGLOBIN 14.1 g/dl (13.5-17.5); LYMPH # 2.1 10^3/uL (1.5-5.0); LYMPH % 32.3 % (24.0-44.0); MEAN CORPUSCULAR HEMOGLOBIN 28.7 pg (27.0-33.0); MEAN CORPUSCULAR HGB CONC 32.6 g/dl (32.0-36.5); MONO # 0.4 10^3/uL (0.0-0.8); MONO % 5.4 % (2.0-8.0); NEUTROPHILS # 3.8 10^3/uL (1.5-8.5); NEUTROPHILS % 59.1 % (36.0-66.0); PLATELET COUNT, AUTOMATED 231 10^3/uL (150-450); RED BLOOD COUNT 4.92 10^6/uL (4.30-6.10); WHITE BLOOD COUNT 6.5 10^3/uL (4.0-10.0)
[2023-12-28 07:25] LABS: APPEARANCE, URINE CLEAR (CLEAR); BACTERIA, URINE AUTO NEGATIVE (NEGATIVE); BILIRUBIN, URINE AUTO NEGATIVE (NEGATIVE); BLOOD, URINE BLOOD NEGATIVE (NEGATIVE); COLOR, URINE YELLOW (YELLOW); GLUCOSE, URINE (UA) AUTO NEGATIVE (NEGATIVE); KETONE, URINE AUTO NEGATIVE (NEGATIVE); LEUKOCYTE ESTERASE, URINE AUTO NEGATIVE (NEGATIVE); MUCUS, URINE SMALL (NEGATIVE); NITRITE, URINE AUTO NEGATIVE (NEGATIVE); PROTEIN, URINE AUTO NEGATIVE (NEGATIVE); RBC, URINE AUTO 1 /HPF (0-3); SPECIFIC GRAVITY URINE AUTO 1.014 (1.002-1.035); SQUAMOUS EPITHELIAL CELL UR AU 0 /HPF (0-6); WBC, URINE AUTO 1 /HPF (0-3)
[2023-12-28 07:45] LABS: C REACTIVE PROTEIN QUANTITATIV < 0.40 MG/DL (<1.0)
[2023-12-28 07:46] LABS: ALBUMIN 3.7 G/DL (3.2-5.2); ALKALINE PHOSPHATASE 64 U/L (46-116); ALT/SGPT 13 U/L (7.0-40); AST/SGOT 15 U/L (<34); BLOOD UREA NITROGEN 14 MG/DL (9-23); CARBON DIOXIDE LEVEL 30 MMOL/L (20-31); CHLORIDE LEVEL 107 MMOL/L (98-107); CREATININE FOR GFR 1.15 MG/DL (0.70-1.30); GLOMERULAR FILTRATION RATE > 60.0 (>42); GLUCOSE, FASTING 91 MG/DL (74-106); POTASSIUM SERUM 4.2 MMOL/L (3.5-5.1); SODIUM LEVEL 141 MMOL/L (136-145); TOTAL PROTEIN 5.8 G/DL (5.7-8.2)
[2023-12-28 07:58] VITALS: BP 173/97; TEMP 97.7; O2SAT 98
[2023-12-28] MEDS ORDERED: DICY-61 PO (08:12)
[2023-12-31] MEDS ORDERED: GABA-282 PO ×2 (19:58→19:59)
[2023-12-31] MEDS ORDERED: ASPI81TA26 PO (19:58)
[2023-12-31] MEDS ORDERED: D3 S20002 PO (19:58)
[2023-12-31] MEDS ORDERED: DICY1CAP8 PO (19:58)
[2023-12-31] MEDS ORDERED: MM S100C PO (19:58)
== END 2023-12-28 08:24 | disposition home or self-care (01) ==
LOC: M ED 03:57
DX: R10.84 Generalized abdominal pain (principal); K59.00 Constipation, unspecified; E78.5 Hyperlipidemia, unspecified; K21.9 Gastro-esophageal reflux disease without esophagitis; M47.896 Other spondylosis, lumbar region; M48.061 Spinal stenosis, lumbar region without neurogenic claudication; Z79.82 Long term (current) use of aspirin; Z79.891 Long term (current) use of opiate analgesic; Z79.899 Other long term (current) drug therapy

== ENCOUNTER → 2023-12-28 | Outpatient (CLI) | payer MEDICARE, OTHER ==
[~2023-12-28] MED LIST changes: +ANEC4CRE3 TOP; +ASPI81TA26 PO; +D3 S20002 PO; +DICY-61 PO; +DICY1CAP8 PO; +GABA-282 PO; +MIRA3350 PO; +MM S100C PO; +PROC1CRE5 PR; +SIME180C25 PO
== END ==
LOC: M PLAIMG 13:17
PROVIDERS: ATTEND Physician Assistant
DX: M47.896 Other spondylosis, lumbar region (principal); M48.061 Spinal stenosis, lumbar region without neurogenic claudication

== ENCOUNTER → 2023-12-28 | Outpatient (CLI) | payer MEDICARE, OTHER ==
[~2023-12-28] MED LIST changes: +OXYB5TAB14 PO; +PHEN-501 PO
== END ==
LOC: M PLAIMG 13:14
PROVIDERS: ATTEND Physician Assistant
DX: I08.0 Rheumatic disorders of both mitral and aortic valves (principal); I77.810 Thoracic aortic ectasia; R00.1 Bradycardia, unspecified

== ENCOUNTER 2023-12-30 02:15 | Emergency (ER) | payer MEDICARE, OTHER ==
[~2023-12-30 02:15] MED LIST changes: +DICY-61 PO
[2023-12-30 03:17] LABS: BASO % 0.3 % (0.0-1.0); EOS # 0.1 10^3/uL (0.0-0.5); EOS % 1.4 % (0.0-3.0); HEMATOCRIT 43.3 % (42.0-52.0); HEMOGLOBIN 14.7 g/dl (13.5-17.5); LYMPH # 2.2 10^3/uL (1.5-5.0); LYMPH % 28.3 % (24.0-44.0); MEAN CORPUSCULAR HEMOGLOBIN 29.2 pg (27.0-33.0); MEAN CORPUSCULAR HGB CONC 33.9 g/dl (32.0-36.5); MEAN CORPUSCULAR VOLUME 85.9 fl (80.0-96.0); MONO # 0.3 10^3/uL (0.0-0.8); MONO % 4.1 % (2.0-8.0); NEUTROPHILS # 5.2 10^3/uL (1.5-8.5); NEUTROPHILS % 65.8 % (36.0-66.0); PLATELET COUNT, AUTOMATED 248 10^3/uL (150-450); RED BLOOD COUNT 5.04 10^6/uL (4.30-6.10); WHITE BLOOD COUNT 7.9 10^3/uL (4.0-10.0)
[2023-12-30 03:40] LABS: LIPASE 26 U/L (12-53)
[2023-12-30 03:43] LABS: ALBUMIN 3.8 G/DL (3.2-5.2); ALKALINE PHOSPHATASE 67 U/L (46-116); ALT/SGPT 14 U/L (7.0-40); AST/SGOT 18 U/L (<34); BILIRUBIN,DIRECT 0.5 MG/DL (<0.4); BLOOD UREA NITROGEN 13 MG/DL (9-23); CALCIUM LEVEL 9.3 MG/DL (8.3-10.6); CARBON DIOXIDE LEVEL 26 MMOL/L (20-31); CHLORIDE LEVEL 105 MMOL/L (98-107); CREATININE FOR GFR 1.11 MG/DL (0.70-1.30); GLOMERULAR FILTRATION RATE > 60.0 (>42); GLUCOSE, FASTING 120 MG/DL (74-106); POTASSIUM SERUM 4.1 MMOL/L (3.5-5.1); SODIUM LEVEL 138 MMOL/L (136-145); TOTAL PROTEIN 6.3 G/DL (5.7-8.2)
[2023-12-30 04:30] VITALS: TEMP 97
[2023-12-30] MEDS: KETOROLAC 30 MG/ML 1ML VIAL IV ONE ×2 (04:49→04:50)
[2023-12-30 05:30] LABS: CPK CREATINE PHOSPHOKINASE 140 U/L (46-171)
[2023-12-30 06:41] VITALS: BP 156/89; O2SAT 99
[2023-12-31] MEDS ORDERED: MM S100C PO (19:58)
[2023-12-31] MEDS ORDERED: DICY1CAP8 PO (19:58)
[2023-12-31] MEDS ORDERED: GABA-282 PO ×2 (19:58→19:59)
[2023-12-31] MEDS ORDERED: D3 S20002 PO (19:58)
[2023-12-31] MEDS ORDERED: ASPI81TA26 PO (19:58)
[2023-12-31] MEDS ORDERED: ceFAZolin 2 GM/D5W 50 ML IV BAG As Ordered ONE (20:33)
== END 2023-12-30 08:40 | disposition home or self-care (01) ==
LOC: M ED 02:15
DX: R10.9 Unspecified abdominal pain (principal); N13.30 Unspecified hydronephrosis; I25.2 Old myocardial infarction; E78.5 Hyperlipidemia, unspecified; F32.A Depression, unspecified; K59.00 Constipation, unspecified; Z95.5 Presence of coronary angioplasty implant and graft; Z98.52 Vasectomy status; Z86.79 Personal history of other diseases of the circulatory system; Z79.82 Long term (current) use of aspirin; Z79.891 Long term (current) use of opiate analgesic; Z79.899 Other long term (current) drug therapy
CPT/HCPCS: 74176; 80053; 81001; 82248; 82550; 83690; 85025; 87086; 96374; 99284; J1885

== ENCOUNTER → 2023-12-31 | Day surgery (SDC) | payer MEDICARE, OTHER ==
[~2023-12-31] VITALS: Ht 177.8 cm; Wt 84.6 kg
[~2023-12-31] MED LIST changes: +ACETAMINOPHEN 1000MG 100ML IV BAG As Ordered ONE; +ASPI81TA26 PO; +D3 S20002 PO; +DICY1CAP8 PO; +GABA-282 PO; +HOME MED LIST COMPLETE! XX SCH; +ISOVUE-300 61% 100ML VIAL As Ordered ONE; +ISOVUE-370 76% 100ML VIAL As Ordered ONE; +LIDOCAINE 2% 100MG/5ML SDV (FOR ANES.) As Ordered ONE; +LR 1,000 ML IV SCH; +MIDAZOLAM INJ 2MG/2ML VIAL As Ordered ONE; +MM S100C PO; +ONDANSETRON 4MG 2ML VIAL As Ordered ONE; +OXYB5TAB14 PO; +PHEN-501 PO; +fentaNYL 100 MCG/2 ML INJECTION As Ordered ONE; +propofoL 200 MG/20 ML VIAL As Ordered ONE
[2023-12-31] MEDS: NS 1,000 ML IV ONE (17:20)
[2023-12-31] MEDS: KETOROLAC 30 MG/ML 1ML VIAL IV ONE (17:20)
[2023-12-31 17:29] LABS: BASO % 0.6 % (0.0-1.0); EOS # 0.2 10^3/uL (0.0-0.5); EOS % 2.8 % (0.0-3.0); HEMATOCRIT 41.5 % (42.0-52.0); LYMPH # 1.8 10^3/uL (1.5-5.0); LYMPH % 28.4 % (24.0-44.0); MEAN CORPUSCULAR HGB CONC 33.7 g/dl (32.0-36.5); MEAN CORPUSCULAR VOLUME 86.1 fl (80.0-96.0); MONO # 0.4 10^3/uL (0.0-0.8); MONO % 5.8 % (2.0-8.0); NEUTROPHILS % 62.2 % (36.0-66.0); PLATELET COUNT, AUTOMATED 222 10^3/uL (150-450); RED BLOOD COUNT 4.82 10^6/uL (4.30-6.10); WHITE BLOOD COUNT 6.4 10^3/uL (4.0-10.0)
[2023-12-31 17:55] LABS: ALBUMIN 3.5 G/DL (3.2-5.2); ALKALINE PHOSPHATASE 65 U/L (46-116); ALT/SGPT 9 U/L (7.0-40); AST/SGOT 31 U/L (<34); BILIRUBIN,DIRECT 0.3 MG/DL (<0.4); BILIRUBIN,TOTAL 0.8 MG/DL (0.3-1.2); BLOOD UREA NITROGEN 17 MG/DL (9-23); CALCIUM LEVEL 8.9 MG/DL (8.3-10.6); CARBON DIOXIDE LEVEL 27 MMOL/L (20-31); CHLORIDE LEVEL 104 MMOL/L (98-107); CREATININE FOR GFR 1.23 MG/DL (0.70-1.30); GLOMERULAR FILTRATION RATE > 60.0 (>42); GLUCOSE, FASTING 97 MG/DL (74-106); LIPASE 30 U/L (12-53); SODIUM LEVEL 139 MMOL/L (136-145); TOTAL PROTEIN 5.9 G/DL (5.7-8.2)
[2023-12-31 17:58] LABS: RSV AMPLIFICATION NEGATIVE (NEGATIVE)
[2023-12-31 21:50] VITALS: TEMP 97.4
[2023-12-31 21:59] VITALS: BP 115/82; O2SAT 98
== END | disposition home or self-care (01) ==
LOC: M ED 16:06 → M SDC 20:08
PROVIDERS: ATTEND Urology
DX: N13.2 Hydronephrosis with renal and ureteral calculous obstruction (principal); Z95.1 Presence of aortocoronary bypass graft; Z79.82 Long term (current) use of aspirin; Z79.899 Other long term (current) drug therapy; E78.5 Hyperlipidemia, unspecified; K21.9 Gastro-esophageal reflux disease without esophagitis
CPT/HCPCS: 52332; 74177; 76000; 76870; 80047; 80048; 80076; 81001; 83690; 85025; 87631; 93976; 96374; 96375; 99284; C1769; C2617; J0131; J0690; J1100; J1885; J2250; J2405; J3010; Q9967

== ENCOUNTER 2024-01-01 11:06 | Emergency (ER) | payer MEDICARE, OTHER ==
[~2024-01-01] VITALS: Ht 177.8 cm; Wt 86.6 kg
[~2024-01-01 11:06] MED LIST changes: -ACETAMINOPHEN 1000MG 100ML IV BAG As Ordered ONE; -HOME MED LIST COMPLETE! XX SCH; -ISOVUE-300 61% 100ML VIAL As Ordered ONE; -ISOVUE-370 76% 100ML VIAL As Ordered ONE; -LIDOCAINE 2% 100MG/5ML SDV (FOR ANES.) As Ordered ONE; -LR 1,000 ML IV SCH; -MIDAZOLAM INJ 2MG/2ML VIAL As Ordered ONE; -ONDANSETRON 4MG 2ML VIAL As Ordered ONE; -OXYB5TAB14 PO; -PHEN-501 PO; -fentaNYL 100 MCG/2 ML INJECTION As Ordered ONE; -propofoL 200 MG/20 ML VIAL As Ordered ONE
[2024-01-01 11:48] LABS: BASO % 0.2 % (0.0-1.0); EOS % 0.2 % (0.0-3.0); HEMATOCRIT 43.7 % (42.0-52.0); HEMOGLOBIN 14.2 g/dl (13.5-17.5); LYMPH # 1.9 10^3/uL (1.5-5.0); LYMPH % 28.4 % (24.0-44.0); MEAN CORPUSCULAR HEMOGLOBIN 28.9 pg (27.0-33.0); MEAN CORPUSCULAR HGB CONC 32.5 g/dl (32.0-36.5); MONO # 0.2 10^3/uL (0.0-0.8); MONO % 2.6 % (2.0-8.0); NEUTROPHILS # 4.5 10^3/uL (1.5-8.5); NEUTROPHILS % 68.3 % (36.0-66.0); PLATELET COUNT, AUTOMATED 235 10^3/uL (150-450); RED BLOOD COUNT 4.91 10^6/uL (4.30-6.10); WHITE BLOOD COUNT 6.5 10^3/uL (4.0-10.0)
[2024-01-01 11:56] LABS: INR 1.14; PARTIAL THROMBOPLASTIN TIME 27.5 SECONDS (24.8-34.2); PROTHROMBIN TIME 14.3 SECONDS (12.5-14.5)
[2024-01-01 12:13] LABS: LIPASE 27 U/L (12-53)
[2024-01-01 12:22] LABS: ALBUMIN 3.5 G/DL (3.2-5.2); ALKALINE PHOSPHATASE 69 U/L (46-116); ALT/SGPT 12 U/L (7.0-40); AST/SGOT 12 U/L (<34); BILIRUBIN,DIRECT 0.4 MG/DL (<0.4); BILIRUBIN,TOTAL 0.7 MG/DL (0.3-1.2); BLOOD UREA NITROGEN 17 MG/DL (9-23); CARBON DIOXIDE LEVEL 30 MMOL/L (20-31); CHLORIDE LEVEL 104 MMOL/L (98-107); CREATININE FOR GFR 1.13 MG/DL (0.70-1.30); GLOMERULAR FILTRATION RATE > 60.0 (>42); GLUCOSE, FASTING 129 MG/DL (74-106); POTASSIUM SERUM 3.8 MMOL/L (3.5-5.1); SODIUM LEVEL 140 MMOL/L (136-145)
[2024-01-01] MEDS: NS 500 ML IV ONE (15:20)
[2024-01-01] MEDS ORDERED: OXYB5TAB14 PO (17:25)
[2024-01-01] MEDS ORDERED: PHEN-501 PO (17:25)
[2024-01-01 17:36] VITALS: BP 171/96; TEMP 98.2; O2SAT 99
== END 2024-01-01 17:38 | disposition home or self-care (01) ==
LOC: M ED 13:40
DX: R31.0 Gross hematuria (principal); K21.9 Gastro-esophageal reflux disease without esophagitis; Z86.79 Personal history of other diseases of the circulatory system; Z79.82 Long term (current) use of aspirin; Z79.891 Long term (current) use of opiate analgesic; Z79.899 Other long term (current) drug therapy

== ENCOUNTER 2024-01-13 05:24 | Emergency (ER) | payer MEDICARE, OTHER ==
[~2024-01-13] VITALS: Ht 177.8 cm; Wt 81.9 kg
[~2024-01-13 05:24] MED LIST changes: +OXYB5TAB14 PO; +PHEN-501 PO
[2024-01-13] MEDS: ACETAMINOPH W/CODEINE #3 TAB UD PO ONE (07:27)
[2024-01-13] MEDS ORDERED: ACET-716 PO (07:55)
[2024-01-13 08:27] VITALS: BP 160/80; TEMP 99; O2SAT 97
[2024-01-14] MEDS ORDERED: POLY17PO10 PO (14:04)
[2024-01-14] MEDS ORDERED: ACET300T48 PO (14:04)
[2024-01-14] MEDS ORDERED: BACI1TAB20 PO (14:04)
== END 2024-01-13 08:20 | disposition home or self-care (01) ==
LOC: M ED 05:24
DX: S52.135A Nondisplaced fracture of neck of left radius, initial encounter for closed fracture (principal); W01.0XXA Fall on same level from slipping, tripping and stumbling without subsequent striking against object, initial encounter; M18.12 Unilateral primary osteoarthritis of first carpometacarpal joint, left hand; M25.732 Osteophyte, left wrist; E78.5 Hyperlipidemia, unspecified; Z86.79 Personal history of other diseases of the circulatory system; Z86.73 Personal history of transient ischemic attack (TIA), and cerebral infarction without residual deficits; Y92.009 Unspecified place in unspecified non-institutional (private) residence as the place of occurrence of the external cause; Y93.89 Activity, other specified; Y99.9 Unspecified external cause status; Z79.82 Long term (current) use of aspirin; Z79.891 Long term (current) use of opiate analgesic; Z79.899 Other long term (current) drug therapy

== ENCOUNTER 2024-01-14 11:06 | Emergency (ER) | payer MEDICARE, OTHER ==
[~2024-01-14] VITALS: Ht 177.8 cm; Wt 82.7 kg
[~2024-01-14 11:06] MED LIST changes: +ACET-716 PO
[2024-01-14 13:39] LABS: BASO % 0.2 % (0.0-1.0); EOS # 0.1 10^3/uL (0.0-0.5); EOS % 0.7 % (0.0-3.0); HEMATOCRIT 41.3 % (42.0-52.0); HEMOGLOBIN 13.6 g/dl (13.5-17.5); LYMPH # 1.8 10^3/uL (1.5-5.0); LYMPH % 20.5 % (24.0-44.0); MEAN CORPUSCULAR HGB CONC 32.9 g/dl (32.0-36.5); MEAN CORPUSCULAR VOLUME 88.1 fl (80.0-96.0); MONO # 0.4 10^3/uL (0.0-0.8); MONO % 4.3 % (2.0-8.0); NEUTROPHILS # 6.5 10^3/uL (1.5-8.5); NEUTROPHILS % 73.7 % (36.0-66.0); PLATELET COUNT, AUTOMATED 210 10^3/uL (150-450); RED BLOOD COUNT 4.69 10^6/uL (4.30-6.10); WHITE BLOOD COUNT 8.8 10^3/uL (4.0-10.0)
[2024-01-14 14:01] LABS: BLOOD UREA NITROGEN 14 MG/DL (9-23); CALCIUM LEVEL 8.8 MG/DL (8.3-10.6); CARBON DIOXIDE LEVEL 29 MMOL/L (20-31); CHLORIDE LEVEL 101 MMOL/L (98-107); CREATININE FOR GFR 1.19 MG/DL (0.70-1.30); GLOMERULAR FILTRATION RATE > 60.0 (>42); GLUCOSE, FASTING 112 MG/DL (74-106); POTASSIUM SERUM 4.1 MMOL/L (3.5-5.1); SODIUM LEVEL 138 MMOL/L (136-145)
[2024-01-14 14:04] VITALS: BP 175/86; TEMP 98.4; O2SAT 96
[2024-01-14] MEDS ORDERED: BACI1TAB20 PO (14:04)
[2024-01-14] MEDS ORDERED: ACET300T48 PO (14:04)
[2024-01-14] MEDS ORDERED: POLY17PO10 PO (14:04)
[2024-01-14] MEDS ORDERED: HOME MED LIST COMPLETE! XX SCH (14:05)
== END 2024-01-14 17:01 | disposition home or self-care (01) ==
LOC: M ED 11:06
DX: N13.30 Unspecified hydronephrosis (principal); T50.905A Adverse effect of unspecified drugs, medicaments and biological substances, initial encounter; E78.5 Hyperlipidemia, unspecified; G47.33 Obstructive sleep apnea (adult) (pediatric); F32.A Depression, unspecified; Z86.79 Personal history of other diseases of the circulatory system; Z79.82 Long term (current) use of aspirin; Z79.891 Long term (current) use of opiate analgesic; Z79.899 Other long term (current) drug therapy

== ENCOUNTER → 2024-01-16 | Outpatient (REF) | payer MEDICARE, OTHER ==
[~2024-01-16] MED LIST changes: +ACET300T48 PO; +BACI1TAB20 PO; +POLY17PO10 PO
[2024-01-16 18:17] LABS: APPEARANCE, URINE HAZY (CLEAR); BACTERIA, URINE AUTO NEGATIVE (NEGATIVE); BILIRUBIN, URINE AUTO NEGATIVE (NEGATIVE); BLOOD, URINE BLOOD NEGATIVE (NEGATIVE); COLOR, URINE AMBER (YELLOW); GLUCOSE, URINE (UA) AUTO NEGATIVE (NEGATIVE); KETONE, URINE AUTO TRACE mg/dL (NEGATIVE); LEUKOCYTE ESTERASE, URINE AUTO 2+ (NEGATIVE); MUCUS, URINE SMALL (NEGATIVE); NITRITE, URINE AUTO NEGATIVE (NEGATIVE); PROTEIN, URINE AUTO 1+ mg/dL (NEGATIVE); RBC, URINE AUTO 1 /HPF (0-3); SPECIFIC GRAVITY URINE AUTO 1.018 (1.002-1.035); SQUAMOUS EPITHELIAL CELL UR AU 0 /HPF (0-6); WBC, URINE AUTO 18 /HPF (0-3)
== END ==
LOC: M SMT 17:09
PROVIDERS: ATTEND Urology
DX: N28.89 Other specified disorders of kidney and ureter (principal)

== ENCOUNTER → 2024-02-20 | Outpatient (REF) | payer MEDICARE, OTHER ==
[~2024-02-20] MED LIST changes: +EZET10TA58 PO; +SENN-83 PO
[2024-02-20 13:41] LABS: APPEARANCE, URINE CLEAR (CLEAR); BACTERIA, URINE AUTO 1+ (NEGATIVE); BILIRUBIN, URINE AUTO NEGATIVE (NEGATIVE); BLOOD, URINE BLOOD NEGATIVE (NEGATIVE); COLOR, URINE YELLOW (YELLOW); GLUCOSE, URINE (UA) AUTO NEGATIVE (NEGATIVE); KETONE, URINE AUTO NEGATIVE (NEGATIVE); LEUKOCYTE ESTERASE, URINE AUTO TRACE (NEGATIVE); NITRITE, URINE AUTO NEGATIVE (NEGATIVE); PROTEIN, URINE AUTO NEGATIVE (NEGATIVE); RBC, URINE AUTO 0 /HPF (0-3); SPECIFIC GRAVITY URINE AUTO 1.011 (1.002-1.035); SQUAMOUS EPITHELIAL CELL UR AU 0 /HPF (0-6); UROBILINOGEN, URINE AUTO 0.2 mg/dL (0.0-2.0); WBC, URINE AUTO 3 /HPF (0-3)
== END ==
LOC: M SMT 12:32
PROVIDERS: ATTEND Urology
DX: N28.89 Other specified disorders of kidney and ureter (principal)

== ENCOUNTER → 2024-02-20 | Outpatient (CLI) | payer MEDICARE, OTHER ==
[2024-02-20 16:13] LABS: BASO % 0.7 % (0.0-1.0); EOS # 0.2 10^3/uL (0.0-0.5); EOS % 3.4 % (0.0-3.0); HEMATOCRIT 41.6 % (42.0-52.0); HEMOGLOBIN 13.4 g/dl (13.5-17.5); LYMPH # 1.6 10^3/uL (1.5-5.0); LYMPH % 28.1 % (24.0-44.0); MEAN CORPUSCULAR HEMOGLOBIN 29.5 pg (27.0-33.0); MEAN CORPUSCULAR HGB CONC 32.2 g/dl (32.0-36.5); MEAN CORPUSCULAR VOLUME 91.4 fl (80.0-96.0); MONO # 0.4 10^3/uL (0.0-0.8); MONO % 6.5 % (2.0-8.0); NEUTROPHILS # 3.4 10^3/uL (1.5-8.5); NEUTROPHILS % 61.1 % (36.0-66.0); PLATELET COUNT, AUTOMATED 224 10^3/uL (150-450); RED BLOOD COUNT 4.55 10^6/uL (4.30-6.10); WHITE BLOOD COUNT 5.6 10^3/uL (4.0-10.0)
[2024-02-20 16:17] LABS: THYROID STIMULATING HORMONE 2.992 uIU/ML (0.55-4.78)
[2024-02-20 16:21] LABS: ALBUMIN 3.6 G/DL (3.2-5.2); ALKALINE PHOSPHATASE 59 U/L (46-116); ALT/SGPT 26 U/L (7.0-40); AST/SGOT 20 U/L (<34); BILIRUBIN,TOTAL 0.6 MG/DL (0.3-1.2); BLOOD UREA NITROGEN 12 MG/DL (9-23); CALCIUM LEVEL 9.1 MG/DL (8.3-10.6); CARBON DIOXIDE LEVEL 29 MMOL/L (20-31); CHLORIDE LEVEL 108 MMOL/L (98-107); CREATININE FOR GFR 1.15 MG/DL (0.70-1.30); GLOMERULAR FILTRATION RATE > 60.0 (>42); GLUCOSE, FASTING 93 MG/DL (74-106); POTASSIUM SERUM 4.5 MMOL/L (3.5-5.1); SODIUM LEVEL 144 MMOL/L (136-145); TOTAL PROTEIN 5.7 G/DL (5.7-8.2)
[2024-02-20 16:22] LABS: FERRITIN 96.2 NG/ML (10.5-307.3)
[2024-02-20 16:23] LABS: FREE T4 1.24 NG/DL (0.89-1.76)
[2024-02-20 17:44] LABS: VITAMIN B12 LEVEL 270 PG/ML (211-911)
== END ==
LOC: M PLALAB 12:15
PROVIDERS: ATTEND Family Medicine
DX: Z01.818 Encounter for other preprocedural examination (principal); K59.09 Other constipation; Z86.39 Personal history of other endocrine, nutritional and metabolic disease

== ENCOUNTER 2024-02-26 07:09 | Day surgery (SDC) | payer MEDICARE, OTHER ==
[~2024-02-26] VITALS: Ht 177.8 cm; Wt 80.1 kg
[2024-02-26] MEDS ORDERED: LR 1,000 ML IV SCH ×2 (07:55→10:45)
[2024-02-26] MEDS ORDERED: MIDAZOLAM INJ 2MG/2ML VIAL As Ordered ONE (08:35)
[2024-02-26] MEDS ORDERED: fentaNYL 100 MCG/2 ML INJECTION As Ordered ONE (08:38)
[2024-02-26] MEDS: ceFAZolin SOD 2 GM in IV 1 EA IV ONE (09:30)
[2024-02-26] MEDS ORDERED: propofoL 200 MG/20 ML VIAL As Ordered ONE (09:36)
[2024-02-26] MEDS ORDERED: ONDANSETRON 4MG 2ML VIAL As Ordered ONE (09:36)
[2024-02-26] MEDS ORDERED: LIDOCAINE 2% 100MG/5ML SDV (FOR ANES.) As Ordered ONE (09:38)
[2024-02-26] MEDS ORDERED: ePHEDrine SULFATE 25 MG/5 ML(5MG/ML) SYRINGE As Ordered ONE (09:49)
[2024-02-26] MEDS ORDERED: ACETAMINOPHEN 1000MG 100ML IV BAG As Ordered ONE (09:50)
[2024-02-26] MEDS: ISOVUE-300 61% 100ML VIAL As Ordered ONE (10:29)
[2024-02-26] MEDS ORDERED: ONDANSETRON 4MG 2ML VIAL IV PRN (10:45)
[2024-02-26] MEDS ORDERED: oxyCODONE 5MG TAB PO PRN (10:45)
[2024-02-26] MEDS ORDERED: HYDROMORPHONE HCL 0.5 MG/ 0.5 ML SYRINGE IV PRN (10:45)
[2024-02-26] MEDS ORDERED: KETOROLAC 30 MG/ML 1ML VIAL As Ordered ONE (11:20)
[2024-02-26] MEDS: KETOROLAC 30 MG/ML 1ML VIAL IV ONE (11:22)
[2024-02-26] MEDS: fentaNYL 100 MCG/2 ML INJECTION IV PRN (11:23)
[2024-02-26] MEDS: LABETALOL 100MG/20ML VIAL IV PRN (11:24)
[2024-02-26 11:34] VITALS: BP 169/78
[2024-02-26 13:10] VITALS: BP 170/77; TEMP 97.1; O2SAT 99
== END 2024-02-26 13:20 | disposition home or self-care (01) ==
LOC: M SDC 07:09
PROVIDERS: ATTEND Urology
DX: N13.1 Hydronephrosis with ureteral stricture, not elsewhere classified (principal); Q64.8 Other specified congenital malformations of urinary system; K59.09 Other constipation; Z90.49 Acquired absence of other specified parts of digestive tract; I25.10 Atherosclerotic heart disease of native coronary artery without angina pectoris; G47.30 Sleep apnea, unspecified; Z79.899 Other long term (current) drug therapy; Z79.82 Long term (current) use of aspirin; E78.2 Mixed hyperlipidemia; Z86.73 Personal history of transient ischemic attack (TIA), and cerebral infarction without residual deficits; Z95.5 Presence of coronary angioplasty implant and graft; F33.41 Major depressive disorder, recurrent, in partial remission
CPT/HCPCS: 52332; 52344; 76000; C1769; C2617; J0131; J0690; J1100; J1885; J1920; J2250; J2405; J3010; Q9967

== ENCOUNTER 2024-03-18 17:51 | Emergency (ER) | payer MEDICARE, OTHER ==
[~2024-03-18] VITALS: Ht 177.8 cm; Wt 81.3 kg
[~2024-03-18 17:51] MED LIST changes: +LACT20EL PO; +ROSU20TA61 PO
[2024-03-18 20:17] VITALS: BP 176/82; TEMP 97.9; O2SAT 97
[2024-03-19] MEDS ORDERED: MIRA3350 PO (08:55)
[2024-03-19] MEDS ORDERED: MULT-90 PO (08:55)
[2024-03-19] MEDS ORDERED: PERC5TAB12 PO (10:46)
== END 2024-03-18 20:18 | disposition home or self-care (01) ==
LOC: M ED 17:51
DX: T83.091A Other mechanical complication of indwelling urethral catheter, initial encounter (principal); E78.5 Hyperlipidemia, unspecified; K21.9 Gastro-esophageal reflux disease without esophagitis; G47.33 Obstructive sleep apnea (adult) (pediatric); Z86.79 Personal history of other diseases of the circulatory system; Z87.442 Personal history of urinary calculi; Z79.52 Long term (current) use of systemic steroids; Z79.82 Long term (current) use of aspirin; Z79.899 Other long term (current) drug therapy

== ENCOUNTER 2024-03-19 03:28 | Emergency (ER) | payer MEDICARE, OTHER ==
[~2024-03-19] VITALS: Ht 177.8 cm; Wt 81.5 kg
[2024-03-19 04:55] LABS: BASO % 0.5 % (0.0-1.0); EOS # 0.3 10^3/uL (0.0-0.5); EOS % 3.4 % (0.0-3.0); HEMATOCRIT 37.4 % (42.0-52.0); HEMOGLOBIN 12.6 g/dl (13.5-17.5); LYMPH # 2.3 10^3/uL (1.5-5.0); LYMPH % 29.3 % (24.0-44.0); MEAN CORPUSCULAR HEMOGLOBIN 29.4 pg (27.0-33.0); MEAN CORPUSCULAR HGB CONC 33.7 g/dl (32.0-36.5); MEAN CORPUSCULAR VOLUME 87.4 fl (80.0-96.0); MONO # 0.4 10^3/uL (0.0-0.8); MONO % 4.5 % (2.0-8.0); NEUTROPHILS # 4.9 10^3/uL (1.5-8.5); PLATELET COUNT, AUTOMATED 206 10^3/uL (150-450); RED BLOOD COUNT 4.28 10^6/uL (4.30-6.10); WHITE BLOOD COUNT 7.9 10^3/uL (4.0-10.0)
[2024-03-19 05:00] VITALS: O2SAT 87
[2024-03-19 05:21] LABS: LIPASE 31 U/L (12-53)
[2024-03-19 05:24] LABS: ALBUMIN 3.2 G/DL (3.2-5.2); ALKALINE PHOSPHATASE 96 U/L (46-116); ALT/SGPT 37 U/L (7.0-40); AST/SGOT 31 U/L (<34); BILIRUBIN,DIRECT 0.2 MG/DL (<0.4); BILIRUBIN,TOTAL 0.7 MG/DL (0.3-1.2); BLOOD UREA NITROGEN 14 MG/DL (9-23); CALCIUM LEVEL 9.4 MG/DL (8.3-10.6); CARBON DIOXIDE LEVEL 27 MMOL/L (20-31); CHLORIDE LEVEL 107 MMOL/L (98-107); CREATININE FOR GFR 1.19 MG/DL (0.70-1.30); GLOMERULAR FILTRATION RATE > 60.0 (>42); GLUCOSE, FASTING 95 MG/DL (74-106); POTASSIUM SERUM 3.7 MMOL/L (3.5-5.1); SODIUM LEVEL 142 MMOL/L (136-145); TOTAL PROTEIN 5.8 G/DL (5.7-8.2)
[2024-03-19] MEDS: ONDANSETRON 4MG 2ML VIAL IV ONE (07:28)
[2024-03-19] MEDS: MORPHINE 4 MG/ML 1ML VIAL IV PRN (07:29)
[2024-03-19] MEDS: KETOROLAC 30 MG/ML 1ML VIAL IV ONE (07:55)
[2024-03-19] MEDS: NS 1,000 ML IV ONE (08:28)
[2024-03-19] MEDS ORDERED: MIRA3350 PO (08:55)
[2024-03-19] MEDS ORDERED: MULT-90 PO (08:55)
[2024-03-19] MEDS ORDERED: HOME MED LIST COMPLETE! XX SCH (08:55)
[2024-03-19] MEDS ORDERED: PERC5TAB12 PO (10:46)
[2024-03-19 11:04] VITALS: BP 154/78; TEMP 98; O2SAT 98
[2024-03-20] MEDS ORDERED: PHEN1TAB73 PO (18:25)
== END 2024-03-19 11:08 | disposition home or self-care (01) ==
LOC: M ED 03:28
DX: N13.30 Unspecified hydronephrosis (principal); R31.9 Hematuria, unspecified; K21.9 Gastro-esophageal reflux disease without esophagitis; F10.10 Alcohol abuse, uncomplicated; G47.33 Obstructive sleep apnea (adult) (pediatric); F33.9 Major depressive disorder, recurrent, unspecified; Z87.442 Personal history of urinary calculi; Z79.1 Long term (current) use of non-steroidal anti-inflammatories (NSAID); Z79.82 Long term (current) use of aspirin; Z79.899 Other long term (current) drug therapy
CPT/HCPCS: 71045; 74176; 80048; 80076; 81001; 83690; 85025; 87086; 93041; 96361; 96374; 96375; 99285; G0463; J1885; J2405

== ENCOUNTER 2024-03-20 17:47 | Emergency (ER) | payer MEDICARE, OTHER ==
[~2024-03-20] VITALS: Ht 177.8 cm; Wt 81.7 kg
[~2024-03-20 17:47] MED LIST changes: -PHEN1TAB73 PO
[2024-03-20] MEDS ORDERED: PHEN1TAB73 PO (18:25)
[2024-03-20 19:01] LABS: BASO % 0.3 % (0.0-1.0); EOS # 0.3 10^3/uL (0.0-0.5); EOS % 4.6 % (0.0-3.0); HEMATOCRIT 35.7 % (42.0-52.0); HEMOGLOBIN 11.9 g/dl (13.5-17.5); LYMPH # 1.6 10^3/uL (1.5-5.0); LYMPH % 24.4 % (24.0-44.0); MEAN CORPUSCULAR HEMOGLOBIN 29.7 pg (27.0-33.0); MEAN CORPUSCULAR HGB CONC 33.3 g/dl (32.0-36.5); MONO # 0.4 10^3/uL (0.0-0.8); MONO % 5.6 % (2.0-8.0); NEUTROPHILS # 4.3 10^3/uL (1.5-8.5); NEUTROPHILS % 64.8 % (36.0-66.0); PLATELET COUNT, AUTOMATED 179 10^3/uL (150-450); RED BLOOD COUNT 4.01 10^6/uL (4.30-6.10); WHITE BLOOD COUNT 6.6 10^3/uL (4.0-10.0)
[2024-03-20 19:32] LABS: ALBUMIN 2.7 G/DL (3.2-5.2); BILIRUBIN,DIRECT 0.3 MG/DL (<0.4); BILIRUBIN,TOTAL 0.6 MG/DL (0.3-1.2); CALCIUM LEVEL 8.4 MG/DL (8.3-10.6); CREATININE FOR GFR 4.57 MG/DL (0.70-1.30); GLOMERULAR FILTRATION RATE 13.4 (>42); POTASSIUM SERUM 3.8 MMOL/L (3.5-5.1); TOTAL PROTEIN 5.1 G/DL (5.7-8.2)
[2024-03-20] MEDS: MORPHINE 2 MG/ML 1ML VIAL IV ONE (20:17)
[2024-03-20] MEDS: PERCOCET 5MG/325MG TAB PO ONE (22:34)
[2024-03-20] MEDS: MAGNESIUM CITRATE 300ML BTL PO ONE (22:38)
[2024-03-20] MEDS: BISACODYL 10MG SUPP PR ONE (22:38)
[2024-03-20] MEDS: NS 1,000 ML IV SCH (23:06)
[2024-03-21 00:42] VITALS: BP 184/98; TEMP 98.8; O2SAT 98
== END 2024-03-21 00:53 | disposition short-term general hospital (02) ==
LOC: M ED 17:47
DX: N13.39 Other hydronephrosis (principal); N17.9 Acute kidney failure, unspecified; R18.8 Other ascites; K21.9 Gastro-esophageal reflux disease without esophagitis; E78.5 Hyperlipidemia, unspecified; Z96.0 Presence of urogenital implants; Z79.899 Other long term (current) drug therapy; Z87.442 Personal history of urinary calculi

== ENCOUNTER → 2024-03-20 | Outpatient (REF) | payer MEDICARE, OTHER ==
[~2024-03-20] MED LIST changes: +MULT-90 PO; +PERC5TAB12 PO; +PHEN1TAB73 PO
== END ==
LOC: M LABSMT 09:39
PROVIDERS: ATTEND Urology
DX: R31.0 Gross hematuria (principal)

== ENCOUNTER → 2024-03-20 | Outpatient (CLI) | payer MEDICARE, OTHER ==
[2024-03-20 13:39] LABS: HEMATOCRIT 37.7 % (42.0-52.0); HEMOGLOBIN 12.1 g/dl (13.5-17.5); MEAN CORPUSCULAR HEMOGLOBIN 28.9 pg (27.0-33.0); MEAN CORPUSCULAR HGB CONC 32.1 g/dl (32.0-36.5); PLATELET COUNT, AUTOMATED 196 10^3/uL (150-450); RED BLOOD COUNT 4.19 10^6/uL (4.30-6.10); WHITE BLOOD COUNT 8.2 10^3/uL (4.0-10.0)
[2024-03-20 14:04] LABS: ALBUMIN 2.9 G/DL (3.2-5.2); BILIRUBIN,TOTAL 0.6 MG/DL (0.3-1.2); CALCIUM LEVEL 8.6 MG/DL (8.3-10.6); CREATININE FOR GFR 3.94 MG/DL (0.70-1.30); GLOMERULAR FILTRATION RATE 15.9 (>42); POTASSIUM SERUM 3.9 MMOL/L (3.5-5.1); TOTAL PROTEIN 5.3 G/DL (5.7-8.2)
== END ==
LOC: M PLALAB 09:56
PROVIDERS: ATTEND Urology
DX: R31.0 Gross hematuria (principal)

== ENCOUNTER → 2024-03-28 | Outpatient (CLI) | payer MEDICARE, OTHER ==
[~2024-03-28] MED LIST changes: +PHEN1TAB73 PO
== END ==
LOC: M RAD 12:56
PROVIDERS: ATTEND Physician Assistant
DX: R63.4 Abnormal weight loss (principal); K80.20 Calculus of gallbladder without cholecystitis without obstruction
CPT/HCPCS: 78226; A9537

== ENCOUNTER 2024-03-30 00:47 | Emergency (ER) | payer MEDICARE, OTHER ==
[~2024-03-30] VITALS: Ht 177.8 cm; Wt 75.1 kg
[2024-03-30 05:33] VITALS: BP 137/81; TEMP 97.8; O2SAT 98
== END 2024-03-30 05:36 | disposition home or self-care (01) ==
LOC: M ED 00:47
DX: Z48.00 Encounter for change or removal of nonsurgical wound dressing (principal); Z93.6 Other artificial openings of urinary tract status; Z79.899 Other long term (current) drug therapy

== ENCOUNTER → 2024-04-02 | Outpatient (CLI) | payer MEDICARE, OTHER ==
[~2024-04-02] MED LIST changes: +ASPI-226 PO; +CYAN100049 PO; +ELIQ5TAB PO; +NIFE1TAB52 PO; +ROSU40TA63 PO; +STOO100C30 PO; +VITA200048 PO
[2024-04-02 17:53] LABS: BASO % 0.4 % (0.0-1.0); EOS # 0.1 10^3/uL (0.0-0.5); EOS % 1.3 % (0.0-3.0); HEMATOCRIT 36.8 % (42.0-52.0); HEMOGLOBIN 12.3 g/dl (13.5-17.5); LYMPH # 2.9 10^3/uL (1.5-5.0); LYMPH % 26.3 % (24.0-44.0); MEAN CORPUSCULAR HEMOGLOBIN 28.6 pg (27.0-33.0); MEAN CORPUSCULAR HGB CONC 33.4 g/dl (32.0-36.5); MEAN CORPUSCULAR VOLUME 85.6 fl (80.0-96.0); MONO # 0.4 10^3/uL (0.0-0.8); MONO % 3.9 % (2.0-8.0); NEUTROPHILS # 7.4 10^3/uL (1.5-8.5); NEUTROPHILS % 67.7 % (36.0-66.0); PLATELET COUNT, AUTOMATED 445 10^3/uL (150-450); WHITE BLOOD COUNT 10.9 10^3/uL (4.0-10.0)
[2024-04-02 18:00] LABS: LIPASE 47 U/L (12-53)
[2024-04-02 18:02] LABS: ALBUMIN 2.8 G/DL (3.2-5.2); ALKALINE PHOSPHATASE 389 U/L (46-116); ALT/SGPT 131 U/L (7.0-40); AST/SGOT 148 U/L (<34); BILIRUBIN,TOTAL 0.8 MG/DL (0.3-1.2); BLOOD UREA NITROGEN 62 MG/DL (9-23); CALCIUM LEVEL 8.7 MG/DL (8.3-10.6); CARBON DIOXIDE LEVEL 27 MMOL/L (20-31); CHLORIDE LEVEL 103 MMOL/L (98-107); CREATININE FOR GFR 2.87 MG/DL (0.70-1.30); GLUCOSE, FASTING 108 MG/DL (74-106); POTASSIUM SERUM 3.9 MMOL/L (3.5-5.1); SODIUM LEVEL 138 MMOL/L (136-145); TOTAL PROTEIN 5.9 G/DL (5.7-8.2)
[2024-04-02 18:05] LABS: IMMUNOGLOBULIN A 57.4 MG/DL (40-350); IMMUNOGLOBULIN G 570 MG/DL (650-1600)
[2024-04-02 18:06] LABS: FREE T4 1.19 NG/DL (0.89-1.76); THYROID STIMULATING HORMONE 1.674 uIU/ML (0.55-4.78)
[2024-04-02 18:15] LABS: ERYTHROCYTE SEDIMENTATION RATE 77 mm/hr (0-20)
[2024-04-04 06:18] LABS: PROTEIN, TOTAL SO 6.2 g/dL (6.1-8.1)
[2024-04-05 08:08] LABS: ALPHA 1 GLOBULINS SO 0.8 g/dL (0.2-0.3); ALPHA 2 GLOBULINS SO 1.1 g/dL (0.5-0.9); BETA 2 GLOBULIN SO 0.4 g/dL (0.2-0.5); BETA GLOBULIN SO 0.4 g/dL (0.4-0.6); GAMMA GLOBULINS SO 0.5 g/dL (0.8-1.7)
[2024-04-06 00:02] LABS: IgG SERUM (part of Subclasses) 545 mg/dL (600-1540); IgG Subclass 1 346 mg/dL (382-929); IgG Subclass 2 120 mg/dL (241-700); IgG Subclass 3 21 mg/dL (22-178); IgG Subclass 4 10.4 mg/dL (4.0-86.0)
[2024-04-07 12:02] LABS: ANTI-SMOOTH MUSCLE ANTIBODY < 20 U (<20)
[2024-04-08 23:22] LABS: ANCA SCREEN REFLEX Negative (Negative)
[2024-04-11 01:13] LABS: Antimyeloperxidase(MPO) Abs < 1.0 AI (<1.0); Antiproteinase 3 (PR-3) Abs < 1.0 AI (<1.0)
== END ==
LOC: M LAB 17:00
PROVIDERS: ATTEND Physician Assistant
DX: K68.2 Retroperitoneal fibrosis (principal); T83.022A Displacement of nephrostomy catheter, initial encounter; M54.50 Low back pain, unspecified; Z79.899 Other long term (current) drug therapy

== ENCOUNTER → 2024-04-02 | Outpatient (REF) | payer MEDICARE, OTHER ==
[~2024-04-02] MED LIST changes: -ASPI-226 PO; -CYAN100049 PO; -ELIQ5TAB PO; -NIFE1TAB52 PO; -ROSU40TA63 PO; -STOO100C30 PO; -VITA200048 PO
== END ==
LOC: M SFHCPLAZ 17:10
PROVIDERS: ATTEND Physician Assistant
DX: T83.022A Displacement of nephrostomy catheter, initial encounter (principal)

== ENCOUNTER → 2024-04-03 | Outpatient (CLI) | payer MEDICARE, OTHER | LOC: M PLAIMG 11:23 | PROVIDERS: ATTEND Urology | DX: T83.092A Other mechanical complication of nephrostomy catheter, initial encounter (principal) ==

== ENCOUNTER → 2024-05-30 | Outpatient (CLI) | payer MEDICARE, OTHER ==
[~2024-05-30] MED LIST changes: +ASPI-226 PO; +CREO6000 PO; +CYAN100049 PO; +ELIQ5TAB PO; +NIFE1TAB52 PO; +ROSU40TA81 PO; +SENN-187 PO; -SENN-83 PO; +SIME80CH5 PO; +STOO100C30 PO; +VITA200048 PO
== END ==
LOC: M PLAIMG 08:59
PROVIDERS: ATTEND Physician Assistant
DX: K59.00 Constipation, unspecified (principal); N20.0 Calculus of kidney; Z93.6 Other artificial openings of urinary tract status

== ENCOUNTER → 2024-05-30 | Outpatient (REF) | payer MEDICARE, OTHER ==
[~2024-05-30] MED LIST changes: -CREO6000 PO; +ROSU40TA63 PO; -ROSU40TA81 PO; -SENN-187 PO; +SENN-83 PO; -SIME80CH5 PO
[2024-05-30 18:54] LABS: APPEARANCE, URINE CLOUDY (CLEAR); BACTERIA, URINE AUTO NEGATIVE (NEGATIVE); BILIRUBIN, URINE AUTO NEGATIVE (NEGATIVE); BLOOD, URINE BLOOD 2+ (NEGATIVE); COLOR, URINE YELLOW (YELLOW); GLUCOSE, URINE (UA) AUTO NEGATIVE (NEGATIVE); KETONE, URINE AUTO NEGATIVE (NEGATIVE); LEUKOCYTE ESTERASE, URINE AUTO 3+ (NEGATIVE); MUCUS, URINE SMALL (NEGATIVE); NITRITE, URINE AUTO NEGATIVE (NEGATIVE); PROTEIN, URINE AUTO 2+ mg/dL (NEGATIVE); RBC, URINE AUTO 7 /HPF (0-3); SPECIFIC GRAVITY URINE AUTO 1.005 (1.002-1.035); SQUAMOUS EPITHELIAL CELL UR AU 0 /HPF (0-6); UROBILINOGEN, URINE AUTO 0.2 mg/dL (0.0-2.0); WBC, URINE AUTO TNTC /HPF (0-3)
== END ==
LOC: M SMT 16:51
PROVIDERS: ATTEND Urology
DX: N39.0 Urinary tract infection, site not specified (principal)

== ENCOUNTER 2024-06-14 10:09 | Inpatient (IN) | payer MEDICARE, OTHER ==
[~2024-06-14] VITALS: Ht 177.8 cm; Wt 69.1 kg
[~2024-06-14 10:09] MED LIST changes: -ROSU40TA63 PO; +ROSU40TA81 PO; +SENN-187 PO; -SENN-83 PO
[2024-06-14] MEDS ORDERED: CREO6000 PO (10:25)
[2024-06-14] MEDS ORDERED: SIME80CH5 PO (10:26)
[2024-06-14] MEDS ORDERED: SIME180C25 PO (10:26)
[2024-06-14 11:48] LABS: BASO % 0.3 % (0.0-1.0); EOS # 0.1 10^3/uL (0.0-0.5); HEMATOCRIT 37.7 % (42.0-52.0); HEMOGLOBIN 12.2 g/dl (13.5-17.5); LYMPH # 1.7 10^3/uL (1.5-5.0); LYMPH % 27.1 % (24.0-44.0); MEAN CORPUSCULAR HEMOGLOBIN 28.5 pg (27.0-33.0); MEAN CORPUSCULAR HGB CONC 32.4 g/dl (32.0-36.5); MEAN CORPUSCULAR VOLUME 88.1 fl (80.0-96.0); MONO # 0.2 10^3/uL (0.0-0.8); MONO % 3.2 % (2.0-8.0); NEUTROPHILS # 4.3 10^3/uL (1.5-8.5); NEUTROPHILS % 68.1 % (36.0-66.0); PLATELET COUNT, AUTOMATED 287 10^3/uL (150-450); RED BLOOD COUNT 4.28 10^6/uL (4.30-6.10); WHITE BLOOD COUNT 6.3 10^3/uL (4.0-10.0)
[2024-06-14 12:03] LABS: INR 1.28; PARTIAL THROMBOPLASTIN TIME 31.9 SECONDS (24.8-34.2); PROTHROMBIN TIME 15.6 SECONDS (12.5-14.5)
[2024-06-14 12:08] LABS: LIPASE 53 U/L (12-53)
[2024-06-14 12:10] LABS: ALBUMIN 3.2 G/DL (3.2-5.2); ALKALINE PHOSPHATASE 70 U/L (46-116); ALT/SGPT 14 U/L (7.0-40); AST/SGOT 15 U/L (<34); BILIRUBIN,DIRECT 0.3 MG/DL (<0.4); BILIRUBIN,TOTAL 0.7 MG/DL (0.3-1.2); BLOOD UREA NITROGEN 15 MG/DL (9-23); CALCIUM LEVEL 8.9 MG/DL (8.3-10.6); CARBON DIOXIDE LEVEL 28 MMOL/L (20-31); CHLORIDE LEVEL 103 MMOL/L (98-107); CREATININE FOR GFR 1.09 MG/DL (0.70-1.30); GLOMERULAR FILTRATION RATE > 60.0 (>42); GLUCOSE, FASTING 89 MG/DL (74-106); POTASSIUM SERUM 3.7 MMOL/L (3.5-5.1); SODIUM LEVEL 136 MMOL/L (136-145); TOTAL PROTEIN 5.6 G/DL (5.7-8.2)
[2024-06-14] MEDS ORDERED: ISOVUE-370 76% 100ML VIAL As Ordered ONE (12:48)
[2024-06-14 18:33] LABS: ASCITES FL COLOR PALE YELLOW (COLORLESS); SOURCE, BODY FLUID ASCITES
[2024-06-14 18:34] LABS: APPEARANCE, BODY FLUID CLEAR (CLEAR)
[2024-06-14 19:09] LABS: SOURCE, BODY FLUID ALBUMIN ASCITES
[2024-06-14 19:14] LABS: SOURCE, BODY FLUID GLUCOSE ASCITES
[2024-06-14 19:43] LABS: SOURCE, BODY FLUID TOT PROTEIN ASCITES; TOTAL PROTEIN, BODY FLUID 2.8 G/DL (NOT ESTABLISHED)
[2024-06-14] MEDS ORDERED: HOME MED LIST COMPLETE! XX SCH (19:50)
[2024-06-14 21:07] LABS: HEMATOCRIT 35.7 % (42.0-52.0); MEAN CORPUSCULAR HEMOGLOBIN 28.9 pg (27.0-33.0); MEAN CORPUSCULAR HGB CONC 33.6 g/dl (32.0-36.5); PLATELET COUNT, AUTOMATED 263 10^3/uL (150-450); RED BLOOD COUNT 4.15 10^6/uL (4.30-6.10); WHITE BLOOD COUNT 6.2 10^3/uL (4.0-10.0)
[2024-06-14 21:32] LABS: ALBUMIN 2.8 G/DL (3.2-5.2); ALKALINE PHOSPHATASE 67 U/L (46-116); ALT/SGPT 11 U/L (7.0-40); AST/SGOT 10 U/L (<34); BILIRUBIN,TOTAL 0.6 MG/DL (0.3-1.2); BLOOD UREA NITROGEN 13 MG/DL (9-23); CALCIUM LEVEL 8.7 MG/DL (8.3-10.6); CARBON DIOXIDE LEVEL 26 MMOL/L (20-31); CHLORIDE LEVEL 107 MMOL/L (98-107); CREATININE FOR GFR 0.95 MG/DL (0.70-1.30); GLOMERULAR FILTRATION RATE > 60.0 (>42); GLUCOSE, FASTING 80 MG/DL (74-106); POTASSIUM SERUM 3.8 MMOL/L (3.5-5.1); SODIUM LEVEL 137 MMOL/L (136-145); TOTAL PROTEIN 5.1 G/DL (5.7-8.2)
[2024-06-14] MEDS: ASPIRIN 81MG ENTERIC TABLET PO SCH (22:28)
[2024-06-14] MEDS: SIMETHICONE 80MG CHEW TAB PO SCH (22:29)
[2024-06-14] MEDS: GABAPENTIN 300 MG CAP PO SCH (22:29)
[2024-06-14] MEDS: APIXABAN 5 MG TAB (ELIQUIS) PO SCH (22:29)
[2024-06-14] MEDS: EZETIMIBE 10MG TABLET (ZETIA) PO SCH (22:29)
[2024-06-14 22:30] VITALS: BP 131/76; TEMP 97.5; O2SAT 98
[2024-06-14] MEDS: CREON-12 CAPSULE (PANCRELIPASE) PO ONE (23:30)
[2024-06-14] MEDS: UNRESOLVED PATIENT OWN MED ORDER XX SCH (23:31)
[2024-06-15] MEDS: ACETAMINOPHEN TAB 650MG DOSE (2X325MG) PO PRN (01:47)
[2024-06-15] MEDS: CREON-12 CAPSULE (PANCRELIPASE) PO SCH (08:00)
[2024-06-15] MEDS ORDERED: CREON-12 CAPSULE (PANCRELIPASE) PO SCH (08:00)
[2024-06-15] MEDS ORDERED: ENTER DRUG NAME HERE (PATIENT'S OWN MED) PO SCH (08:00)
[2024-06-15] MEDS: buPROPion (WELLBUTRIN SR) 100 MG SR TAB PO SCH (08:52)
[2024-06-15] MEDS: CYANOCOBALAMIN 500 MCG TAB PO SCH (08:52)
[2024-06-15] MEDS: ROSUVASTATIN 10 MG TAB (CRESTOR) PO SCH (08:53)
[2024-06-15 12:00] VITALS: BP 110/75; TEMP 97.7; O2SAT 100
[2024-06-15] MEDS: SIMETHICONE 80MG CHEW TAB PO SCH (17:46)
[2024-06-15 19:50] VITALS: BP 136/88; TEMP 97.3; O2SAT 97
[2024-06-16 03:20] VITALS: BP 109/74; TEMP 97.3; O2SAT 70
[2024-06-16 06:10] LABS: BASO % 0.6 % (0.0-1.0); EOS # 0.1 10^3/uL (0.0-0.5); EOS % 1.8 % (0.0-3.0); HEMOGLOBIN 12.8 g/dl (13.5-17.5); LYMPH # 1.5 10^3/uL (1.5-5.0); LYMPH % 21.5 % (24.0-44.0); MEAN CORPUSCULAR HGB CONC 32.8 g/dl (32.0-36.5); MEAN CORPUSCULAR VOLUME 88.2 fl (80.0-96.0); MONO # 0.2 10^3/uL (0.0-0.8); MONO % 2.5 % (2.0-8.0); NEUTROPHILS # 5.2 10^3/uL (1.5-8.5); NEUTROPHILS % 73.3 % (36.0-66.0); PLATELET COUNT, AUTOMATED 294 10^3/uL (150-450); RED BLOOD COUNT 4.42 10^6/uL (4.30-6.10); WHITE BLOOD COUNT 7.1 10^3/uL (4.0-10.0)
[2024-06-16 06:33] LABS: BLOOD UREA NITROGEN 15 MG/DL (9-23); CALCIUM LEVEL 8.8 MG/DL (8.3-10.6); CARBON DIOXIDE LEVEL 29 MMOL/L (20-31); CHLORIDE LEVEL 105 MMOL/L (98-107); CREATININE FOR GFR 1.12 MG/DL (0.70-1.30); GLOMERULAR FILTRATION RATE > 60.0 (>42); GLUCOSE, FASTING 102 MG/DL (74-106); MAGNESIUM LEVEL 2.1 MG/DL (1.8-2.4); POTASSIUM SERUM 3.9 MMOL/L (3.5-5.1); SODIUM LEVEL 139 MMOL/L (136-145)
[2024-06-16 12:00] VITALS: BP 138/86; TEMP 97.3; O2SAT 65
[2024-06-16 12:01] VITALS: O2SAT 99
[2024-06-16 14:07] VITALS: O2SAT 98
[2024-06-16 20:05] VITALS: BP 148/99; TEMP 97.9; O2SAT 99
[2024-06-16] MEDS: ACETAMINOPHEN 500 MG TAB PO PRN (23:59)
[2024-06-17 03:44] VITALS: BP 107/73; TEMP 97.5; O2SAT 98
[2024-06-17 05:09] LABS: BASO % 0.5 % (0.0-1.0); EOS # 0.1 10^3/uL (0.0-0.5); EOS % 1.6 % (0.0-3.0); HEMATOCRIT 38.5 % (42.0-52.0); HEMOGLOBIN 12.5 g/dl (13.5-17.5); LYMPH # 1.6 10^3/uL (1.5-5.0); LYMPH % 25.1 % (24.0-44.0); MEAN CORPUSCULAR HEMOGLOBIN 28.4 pg (27.0-33.0); MEAN CORPUSCULAR HGB CONC 32.5 g/dl (32.0-36.5); MEAN CORPUSCULAR VOLUME 87.5 fl (80.0-96.0); MONO # 0.2 10^3/uL (0.0-0.8); MONO % 2.7 % (2.0-8.0); NEUTROPHILS # 4.5 10^3/uL (1.5-8.5); NEUTROPHILS % 69.8 % (36.0-66.0); PLATELET COUNT, AUTOMATED 286 10^3/uL (150-450); WHITE BLOOD COUNT 6.4 10^3/uL (4.0-10.0)
[2024-06-17 05:33] LABS: BLOOD UREA NITROGEN 16 MG/DL (9-23); CARBON DIOXIDE LEVEL 28 MMOL/L (20-31); CHLORIDE LEVEL 106 MMOL/L (98-107); CREATININE FOR GFR 1.18 MG/DL (0.70-1.30); GLOMERULAR FILTRATION RATE > 60.0 (>42); GLUCOSE, FASTING 95 MG/DL (74-106); MAGNESIUM LEVEL 2.1 MG/DL (1.8-2.4); POTASSIUM SERUM 4.1 MMOL/L (3.5-5.1); SODIUM LEVEL 139 MMOL/L (136-145)
[2024-06-17 07:53] VITALS: BP 144/87; TEMP 97.2; O2SAT 99
[2024-06-17 14:23] VITALS: BP 120/79; TEMP 97.3; O2SAT 98
[2024-06-17 14:28] VITALS: BP 120/74; TEMP 97.3
[2024-06-17] MEDS: UNRESOLVED PATIENT OWN MED ORDER XX SCH (20:27)
[2024-06-17 20:54] VITALS: BP 122/69; TEMP 97.5; O2SAT 98
[2024-06-18] MEDS: NORCO, ANEXSIA 5/325MG TABLET (HYDROcodone/ACETAMINOPHEN) PO ONE (01:18)
[2024-06-18 04:00] VITALS: BP 127/84; TEMP 97.2; O2SAT 98
[2024-06-18 06:25] LABS: BASO % 0.5 % (0.0-1.0); EOS # 0.2 10^3/uL (0.0-0.5); EOS % 2.5 % (0.0-3.0); HEMATOCRIT 36.2 % (42.0-52.0); HEMOGLOBIN 11.9 g/dl (13.5-17.5); LYMPH # 1.5 10^3/uL (1.5-5.0); LYMPH % 23.6 % (24.0-44.0); MEAN CORPUSCULAR HEMOGLOBIN 28.6 pg (27.0-33.0); MEAN CORPUSCULAR HGB CONC 32.9 g/dl (32.0-36.5); MONO # 0.3 10^3/uL (0.0-0.8); MONO % 4.6 % (2.0-8.0); NEUTROPHILS # 4.3 10^3/uL (1.5-8.5); NEUTROPHILS % 68.5 % (36.0-66.0); PLATELET COUNT, AUTOMATED 280 10^3/uL (150-450); RED BLOOD COUNT 4.16 10^6/uL (4.30-6.10); WHITE BLOOD COUNT 6.3 10^3/uL (4.0-10.0)
[2024-06-18 07:19] LABS: BLOOD UREA NITROGEN 18 MG/DL (9-23); CALCIUM LEVEL 8.3 MG/DL (8.3-10.6); CARBON DIOXIDE LEVEL 26 MMOL/L (20-31); CHLORIDE LEVEL 105 MMOL/L (98-107); CREATININE FOR GFR 1.03 MG/DL (0.70-1.30); GLOMERULAR FILTRATION RATE > 60.0 (>42); GLUCOSE, FASTING 84 MG/DL (74-106); POTASSIUM SERUM 4.1 MMOL/L (3.5-5.1); SODIUM LEVEL 136 MMOL/L (136-145)
[2024-06-18 11:50] VITALS: BP 128/86; TEMP 97.3; O2SAT 99
[2024-06-18 20:27] VITALS: BP 125/85; TEMP 97.5; O2SAT 99
[2024-06-18] MEDS: APIXABAN 5 MG TAB (ELIQUIS) PO SCH (21:00)
[2024-06-18] MEDS: SENOKOT S TAB PO SCH (21:12)
[2024-06-19 04:09] VITALS: BP 119/80; TEMP 97.3; O2SAT 97
[2024-06-19 05:30] LABS: BASO % 0.3 % (0.0-1.0); EOS # 0.1 10^3/uL (0.0-0.5); EOS % 1.9 % (0.0-3.0); HEMATOCRIT 36.6 % (42.0-52.0); LYMPH # 1.5 10^3/uL (1.5-5.0); LYMPH % 24.3 % (24.0-44.0); MEAN CORPUSCULAR HEMOGLOBIN 28.3 pg (27.0-33.0); MEAN CORPUSCULAR HGB CONC 32.8 g/dl (32.0-36.5); MEAN CORPUSCULAR VOLUME 86.3 fl (80.0-96.0); MONO # 0.3 10^3/uL (0.0-0.8); MONO % 4.3 % (2.0-8.0); NEUTROPHILS # 4.4 10^3/uL (1.5-8.5); NEUTROPHILS % 68.7 % (36.0-66.0); PLATELET COUNT, AUTOMATED 271 10^3/uL (150-450); RED BLOOD COUNT 4.24 10^6/uL (4.30-6.10); WHITE BLOOD COUNT 6.4 10^3/uL (4.0-10.0)
[2024-06-19 06:00] LABS: BLOOD UREA NITROGEN 19 MG/DL (9-23); CALCIUM LEVEL 8.2 MG/DL (8.3-10.6); CARBON DIOXIDE LEVEL 26 MMOL/L (20-31); CHLORIDE LEVEL 105 MMOL/L (98-107); CREATININE FOR GFR 1.08 MG/DL (0.70-1.30); GLOMERULAR FILTRATION RATE > 60.0 (>42); GLUCOSE, FASTING 96 MG/DL (74-106); POTASSIUM SERUM 4.1 MMOL/L (3.5-5.1); SODIUM LEVEL 136 MMOL/L (136-145)
[2024-06-19 06:34] LABS: ALBUMIN 2.5 G/DL (3.2-5.2); ALKALINE PHOSPHATASE 64 U/L (46-116); ALT/SGPT 13 U/L (7.0-40); AST/SGOT 12 U/L (<34); BILIRUBIN,DIRECT 0.2 MG/DL (<0.4); BILIRUBIN,TOTAL 0.5 MG/DL (0.3-1.2); TOTAL PROTEIN 4.7 G/DL (5.7-8.2)
[2024-06-19 08:26] VITALS: BP 119/80; TEMP 97; O2SAT 98
[2024-06-19] MEDS: BISACODYL 10MG SUPP PR ONE (09:27)
[2024-06-19] MEDS: MIRALAX *UNIT DOSE* 17GM PACKET PO SCH (09:27)
[2024-06-19] MEDS: CREON PO SCH (09:29)
[2024-06-19] MEDS: GASTROGRAFIN SOLUTION 30ML PO SCH (12:42)
[2024-06-19 12:54] LABS: APPEARANCE, URINE HAZY (CLEAR); BACTERIA, URINE AUTO NEGATIVE (NEGATIVE); BILIRUBIN, URINE AUTO NEGATIVE (NEGATIVE); BLOOD, URINE BLOOD 3+ (NEGATIVE); CALCIUM OXALATE CRYSTALS SMALL; COLOR, URINE YELLOW (YELLOW); GLUCOSE, URINE (UA) AUTO NEGATIVE (NEGATIVE); KETONE, URINE AUTO NEGATIVE (NEGATIVE); LEUKOCYTE ESTERASE, URINE AUTO 3+ (NEGATIVE); MUCUS, URINE SMALL (NEGATIVE); NITRITE, URINE AUTO NEGATIVE (NEGATIVE); PROTEIN, URINE AUTO 2+ mg/dL (NEGATIVE); RBC, URINE AUTO 90 /HPF (0-3); SPECIFIC GRAVITY URINE AUTO 1.024 (1.002-1.035); SQUAMOUS EPITHELIAL CELL UR AU 0 /HPF (0-6); UROBILINOGEN, URINE AUTO 0.2 mg/dL (0.0-2.0); WBC, URINE AUTO 38 /HPF (0-3)
[2024-06-19 14:09] VITALS: BP 144/97; TEMP 97.7; O2SAT 98
[2024-06-19 17:12] LABS: CARCINOEMBRYONIC ANTIGEN < 2.0 NG/ML (<2.5)
[2024-06-19 17:26] LABS: CA19-9 TUMOR MARKER,CARBOHYDRA 66.9 U/ML (<35.0)
[2024-06-19 20:00] VITALS: BP 127/83; TEMP 97.5; O2SAT 96
[2024-06-19] MEDS: CALCIUM CARBONATE 500 MG CHEW U/D PO PRN (20:21)
[2024-06-19 20:40] VITALS: BP 127/83; TEMP 97.5; O2SAT 97
[2024-06-19] MEDS: ONDANSETRON 4MG ORAL DISINTEGRATING TAB PO PRN (22:58)
[2024-06-20] MEDS ORDERED: PERMETHRIN 5% CREAM 60 GM TOP SCH
[2024-06-20 03:14] VITALS: BP 114/79; TEMP 97.2; O2SAT 97
[2024-06-20 06:36] LABS: BASO % 0.3 % (0.0-1.0); EOS # 0.2 10^3/uL (0.0-0.5); EOS % 2.4 % (0.0-3.0); HEMATOCRIT 37.9 % (42.0-52.0); HEMOGLOBIN 12.5 g/dl (13.5-17.5); LYMPH # 1.6 10^3/uL (1.5-5.0); LYMPH % 24.2 % (24.0-44.0); MEAN CORPUSCULAR HEMOGLOBIN 28.9 pg (27.0-33.0); MEAN CORPUSCULAR VOLUME 87.7 fl (80.0-96.0); MONO # 0.3 10^3/uL (0.0-0.8); MONO % 4.2 % (2.0-8.0); NEUTROPHILS # 4.6 10^3/uL (1.5-8.5); NEUTROPHILS % 68.4 % (36.0-66.0); PLATELET COUNT, AUTOMATED 301 10^3/uL (150-450); RED BLOOD COUNT 4.32 10^6/uL (4.30-6.10); WHITE BLOOD COUNT 6.7 10^3/uL (4.0-10.0)
[2024-06-20 06:56] LABS: BLOOD UREA NITROGEN 18 MG/DL (9-23); CALCIUM LEVEL 8.4 MG/DL (8.3-10.6); CARBON DIOXIDE LEVEL 29 MMOL/L (20-31); CHLORIDE LEVEL 103 MMOL/L (98-107); CREATININE FOR GFR 1.03 MG/DL (0.70-1.30); GLOMERULAR FILTRATION RATE > 60.0 (>42); GLUCOSE, FASTING 99 MG/DL (74-106); POTASSIUM SERUM 4.2 MMOL/L (3.5-5.1); SODIUM LEVEL 135 MMOL/L (136-145)
[2024-06-20 12:00] VITALS: BP 106/73; TEMP 97.5; O2SAT 98
[2024-06-20] MEDS: PERMETHRIN 5% CREAM 60 GM TOP ONE (17:53)
[2024-06-20 20:00] VITALS: BP_SYST 105; BP_SYST 129; BP_DIAS 75; TEMP 97.3; TEMP 97.8; O2SAT 97
[2024-06-21 03:53] VITALS: BP 104/68; TEMP 97.2; O2SAT 94
[2024-06-21 05:46] LABS: BASO % 0.6 % (0.0-1.0); EOS # 0.1 10^3/uL (0.0-0.5); EOS % 2.1 % (0.0-3.0); HEMOGLOBIN 11.9 g/dl (13.5-17.5); LYMPH # 1.6 10^3/uL (1.5-5.0); LYMPH % 25.6 % (24.0-44.0); MEAN CORPUSCULAR HEMOGLOBIN 28.8 pg (27.0-33.0); MEAN CORPUSCULAR HGB CONC 33.1 g/dl (32.0-36.5); MEAN CORPUSCULAR VOLUME 87.2 fl (80.0-96.0); MONO # 0.3 10^3/uL (0.0-0.8); MONO % 4.7 % (2.0-8.0); NEUTROPHILS # 4.1 10^3/uL (1.5-8.5); NEUTROPHILS % 66.7 % (36.0-66.0); PLATELET COUNT, AUTOMATED 282 10^3/uL (150-450); RED BLOOD COUNT 4.13 10^6/uL (4.30-6.10); WHITE BLOOD COUNT 6.2 10^3/uL (4.0-10.0)
[2024-06-21 06:17] LABS: ALBUMIN 2.4 G/DL (3.2-5.2); ALKALINE PHOSPHATASE 73 U/L (46-116); ALT/SGPT 18 U/L (7.0-40); AST/SGOT 14 U/L (<34); BILIRUBIN,TOTAL 0.5 MG/DL (0.3-1.2); BLOOD UREA NITROGEN 18 MG/DL (9-23); CALCIUM LEVEL 8.7 MG/DL (8.3-10.6); CARBON DIOXIDE LEVEL 27 MMOL/L (20-31); CHLORIDE LEVEL 103 MMOL/L (98-107); CREATININE FOR GFR 0.97 MG/DL (0.70-1.30); GLOMERULAR FILTRATION RATE > 60.0 (>42); GLUCOSE, FASTING 83 MG/DL (74-106); POTASSIUM SERUM 4.2 MMOL/L (3.5-5.1); SODIUM LEVEL 135 MMOL/L (136-145); TOTAL PROTEIN 4.8 G/DL (5.7-8.2)
[2024-06-21 11:59] VITALS: BP 106/70; TEMP 97.3; O2SAT 98
[2024-06-21 20:00] VITALS: BP 118/79; TEMP 97.2; O2SAT 98
[2024-06-21] MEDS: HEPARIN SOD (PORCINE) 5000UNITS/ML 1ML VIAL/SYRINGE SQ SCH (21:23)
[2024-06-22] VITALS (7 sets, daily range): BP systolic 100–134; BP diastolic 66–82; TEMP 97.2–97.5; O2SAT 96–99
[2024-06-22 05:15] LABS: BASO % 0.5 % (0.0-1.0); EOS # 0.1 10^3/uL (0.0-0.5); EOS % 1.7 % (0.0-3.0); HEMOGLOBIN 12.4 g/dl (13.5-17.5); LYMPH # 1.7 10^3/uL (1.5-5.0); LYMPH % 29.2 % (24.0-44.0); MEAN CORPUSCULAR HEMOGLOBIN 28.4 pg (27.0-33.0); MEAN CORPUSCULAR HGB CONC 32.6 g/dl (32.0-36.5); MONO # 0.2 10^3/uL (0.0-0.8); MONO % 4.1 % (2.0-8.0); NEUTROPHILS # 3.8 10^3/uL (1.5-8.5); NEUTROPHILS % 64.3 % (36.0-66.0); PLATELET COUNT, AUTOMATED 309 10^3/uL (150-450); RED BLOOD COUNT 4.37 10^6/uL (4.30-6.10); WHITE BLOOD COUNT 5.9 10^3/uL (4.0-10.0)
[2024-06-22 05:38] LABS: BLOOD UREA NITROGEN 19 MG/DL (9-23); CALCIUM LEVEL 8.9 MG/DL (8.3-10.6); CARBON DIOXIDE LEVEL 26 MMOL/L (20-31); CHLORIDE LEVEL 106 MMOL/L (98-107); CREATININE FOR GFR 0.98 MG/DL (0.70-1.30); GLOMERULAR FILTRATION RATE > 60.0 (>42); GLUCOSE, FASTING 89 MG/DL (74-106); POTASSIUM SERUM 4.1 MMOL/L (3.5-5.1); SODIUM LEVEL 137 MMOL/L (136-145)
[2024-06-22] MEDS: PERCOCET 5MG/325MG TAB PO PRN ×2 (05:38→23:25)
[2024-06-22 07:15] LABS: ALBUMIN 2.5 G/DL (3.2-5.2); ALKALINE PHOSPHATASE 80 U/L (46-116); ALT/SGPT 21 U/L (7.0-40); AST/SGOT 19 U/L (<34); BILIRUBIN,DIRECT 0.2 MG/DL (<0.4); BILIRUBIN,TOTAL 0.4 MG/DL (0.3-1.2); TOTAL PROTEIN 4.8 G/DL (5.7-8.2)
[2024-06-22 07:26] LABS: PROCALCITONIN 0.09 ng/ml
[2024-06-22 07:35] LABS: ERYTHROCYTE SEDIMENTATION RATE 28 mm/hr (0-20)
[2024-06-22 15:42] LABS: SOURCE, BODY FLUID ALBUMIN ASCITES
[2024-06-22 15:46] LABS: SOURCE, BODY FLUID GLUCOSE ASCITES
[2024-06-22 16:08] LABS: APPEARANCE, BODY FLUID HAZY (CLEAR); ASCITES FL COLOR PALE YELLOW (COLORLESS); SOURCE, BODY FLUID ASCITES
[2024-06-22 16:40] LABS: SOURCE, BODY FLUID TOT PROTEIN ASCITES; TOTAL PROTEIN, BODY FLUID 2.2 G/DL (NOT ESTABLISHED)
[2024-06-22] MEDS: PERCOCET 5MG/325MG TAB PO ONE (23:59)
[2024-06-23 03:18] VITALS: BP 127/78; TEMP 97.3; O2SAT 95
[2024-06-23 05:13] LABS: BASO % 0.7 % (0.0-1.0); EOS # 0.1 10^3/uL (0.0-0.5); EOS % 1.8 % (0.0-3.0); HEMATOCRIT 35.4 % (42.0-52.0); HEMOGLOBIN 11.6 g/dl (13.5-17.5); LYMPH # 1.4 10^3/uL (1.5-5.0); LYMPH % 25.4 % (24.0-44.0); MEAN CORPUSCULAR HEMOGLOBIN 28.4 pg (27.0-33.0); MEAN CORPUSCULAR HGB CONC 32.8 g/dl (32.0-36.5); MEAN CORPUSCULAR VOLUME 86.6 fl (80.0-96.0); MONO # 0.3 10^3/uL (0.0-0.8); MONO % 4.6 % (2.0-8.0); NEUTROPHILS # 3.8 10^3/uL (1.5-8.5); NEUTROPHILS % 67.1 % (36.0-66.0); PLATELET COUNT, AUTOMATED 288 10^3/uL (150-450); RED BLOOD COUNT 4.09 10^6/uL (4.30-6.10); WHITE BLOOD COUNT 5.6 10^3/uL (4.0-10.0)
[2024-06-23 05:41] LABS: BLOOD UREA NITROGEN 18 MG/DL (9-23); CALCIUM LEVEL 8.4 MG/DL (8.3-10.6); CARBON DIOXIDE LEVEL 24 MMOL/L (20-31); CHLORIDE LEVEL 104 MMOL/L (98-107); CREATININE FOR GFR 1.01 MG/DL (0.70-1.30); GLOMERULAR FILTRATION RATE > 60.0 (>42); GLUCOSE, FASTING 85 MG/DL (74-106); POTASSIUM SERUM 4.1 MMOL/L (3.5-5.1); SODIUM LEVEL 135 MMOL/L (136-145)
[2024-06-23 12:00] VITALS: BP 110/65; TEMP 97; O2SAT 99
[2024-06-23 15:38] LABS: INR 1.03; PROTHROMBIN TIME 13.2 SECONDS (12.5-14.5)
[2024-06-23 20:00] VITALS: BP 108/70; TEMP 97.7; O2SAT 96
[2024-06-24] VITALS (8 sets, daily range): BP systolic 101–153; BP diastolic 71–89; TEMP 97.3–97.7; O2SAT 92–100
[2024-06-24 05:09] LABS: BASO % 0.7 % (0.0-1.0); EOS # 0.1 10^3/uL (0.0-0.5); HEMATOCRIT 35.8 % (42.0-52.0); HEMOGLOBIN 11.7 g/dl (13.5-17.5); LYMPH # 1.4 10^3/uL (1.5-5.0); LYMPH % 23.2 % (24.0-44.0); MEAN CORPUSCULAR HEMOGLOBIN 28.5 pg (27.0-33.0); MEAN CORPUSCULAR HGB CONC 32.7 g/dl (32.0-36.5); MEAN CORPUSCULAR VOLUME 87.1 fl (80.0-96.0); MONO # 0.2 10^3/uL (0.0-0.8); MONO % 3.7 % (2.0-8.0); NEUTROPHILS # 4.2 10^3/uL (1.5-8.5); NEUTROPHILS % 69.9 % (36.0-66.0); PLATELET COUNT, AUTOMATED 294 10^3/uL (150-450); RED BLOOD COUNT 4.11 10^6/uL (4.30-6.10)
[2024-06-24 05:29] LABS: BLOOD UREA NITROGEN 16 MG/DL (9-23); CALCIUM LEVEL 8.2 MG/DL (8.3-10.6); CARBON DIOXIDE LEVEL 26 MMOL/L (20-31); CHLORIDE LEVEL 104 MMOL/L (98-107); CREATININE FOR GFR 1.04 MG/DL (0.70-1.30); GLOMERULAR FILTRATION RATE > 60.0 (>42); GLUCOSE, FASTING 87 MG/DL (74-106); POTASSIUM SERUM 4.3 MMOL/L (3.5-5.1); SODIUM LEVEL 135 MMOL/L (136-145)
[2024-06-24 10:11] LABS: C REACTIVE PROTEIN QUANTITATIV 3.9 MG/DL (<1.0)
[2024-06-24 10:24] LABS: PROCALCITONIN 0.11 ng/ml
[2024-06-24] MEDS: ceFAZolin SOD 1 GM in IV 1 EA IV SCH (11:29)
[2024-06-24] MEDS ORDERED: fentaNYL 100 MCG/2 ML INJECTION As Ordered ONE (17:58)
[2024-06-24] MEDS ORDERED: propofoL 200 MG/20 ML VIAL As Ordered ONE (17:58)
[2024-06-24] MEDS ORDERED: SUGAMMADEX SODIUM 500 MG/5 ML VIAL (BRIDION) As Ordered ONE (17:58)
[2024-06-24] MEDS ORDERED: ONDANSETRON 4MG 2ML VIAL As Ordered ONE (17:58)
[2024-06-24] MEDS ORDERED: LIDOCAINE 2% 100MG/5ML SDV (FOR ANES.) As Ordered ONE (17:58)
[2024-06-24] MEDS ORDERED: ROCURONIUM BROMIDE 50MG/5ML VIAL As Ordered ONE (17:58)
[2024-06-24] MEDS ORDERED: MIDAZOLAM INJ 2MG/2ML VIAL As Ordered ONE (17:59)
[2024-06-24] MEDS: ceFAZolin SOD 1 GM in D5W MINI-BAG PLUS 50 ML IV SCH (19:00)
[2024-06-25] VITALS (7 sets, daily range): BP systolic 104–118; BP diastolic 64–87; TEMP 97.2–97.8; O2SAT 95–98
[2024-06-25] MEDS ORDERED: PERMETHRIN 5% CREAM 60 GM TOP SCH
[2024-06-25 05:37] LABS: BASO % 0.3 % (0.0-1.0); HEMATOCRIT 35.7 % (42.0-52.0); HEMOGLOBIN 11.8 g/dl (13.5-17.5); LYMPH # 1.3 10^3/uL (1.5-5.0); LYMPH % 18.5 % (24.0-44.0); MEAN CORPUSCULAR HEMOGLOBIN 28.6 pg (27.0-33.0); MEAN CORPUSCULAR HGB CONC 33.1 g/dl (32.0-36.5); MEAN CORPUSCULAR VOLUME 86.4 fl (80.0-96.0); MONO # 0.2 10^3/uL (0.0-0.8); MONO % 2.9 % (2.0-8.0); NEUTROPHILS # 5.3 10^3/uL (1.5-8.5); NEUTROPHILS % 77.9 % (36.0-66.0); PLATELET COUNT, AUTOMATED 289 10^3/uL (150-450); RED BLOOD COUNT 4.13 10^6/uL (4.30-6.10); WHITE BLOOD COUNT 6.8 10^3/uL (4.0-10.0)
[2024-06-25 06:01] LABS: BLOOD UREA NITROGEN 17 MG/DL (9-23); CALCIUM LEVEL 8.2 MG/DL (8.3-10.6); CARBON DIOXIDE LEVEL 26 MMOL/L (20-31); CHLORIDE LEVEL 104 MMOL/L (98-107); CREATININE FOR GFR 0.97 MG/DL (0.70-1.30); GLOMERULAR FILTRATION RATE > 60.0 (>42); GLUCOSE, FASTING 113 MG/DL (74-106); POTASSIUM SERUM 4.5 MMOL/L (3.5-5.1); SODIUM LEVEL 135 MMOL/L (136-145)
[2024-06-25] MEDS ORDERED: NIX CREME RINSE 1% 60ML KIT TOP ONE (19:55)
[2024-06-25] MEDS: APIXABAN 5 MG TAB (ELIQUIS) PO SCH (21:00)
[2024-06-25] MEDS: PERMETHRIN 5% CREAM 60 GM TOP ONE (21:17)
[2024-06-26 04:00] VITALS: BP 93/68; TEMP 97.3; O2SAT 96
[2024-06-26 07:25] VITALS: BP 104/68; TEMP 97.5; O2SAT 98
[2024-06-26 08:00] VITALS: BP 94/60; TEMP 97.5; O2SAT 97
[2024-06-26] MEDS ORDERED: NS 500 ML IV ONE (09:55)
[2024-06-26] MEDS ORDERED: MIDODRINE 5 MG TAB PO ONE (09:55)
[2024-06-26] MEDS: MAGNESIUM CITRATE 300ML BTL PO ONE (10:23)
[2024-06-26] MEDS: BISACODYL 10MG SUPP PR SCH (10:24)
[2024-06-26 12:00] VITALS: TEMP 97.3; O2SAT 95
[2024-06-26 12:30] VITALS: BP 110/80
[2024-06-26] MEDS ORDERED: METHYLNALTREXONE BROMIDE 12MG/0.6ML VIAL (RELISTOR) SC ONE (18:00)
[2024-06-26] MEDS: METHYLNALTREXONE BROMIDE 12MG/0.6ML VIAL (RELISTOR) SC ONE (18:05)
[2024-06-26 20:00] VITALS: BP 106/71; TEMP 97.3; O2SAT 96
[2024-06-26 23:22] LABS: ALBUMIN 2.4 G/DL (3.2-5.2); ALKALINE PHOSPHATASE 144 U/L (46-116); ALT/SGPT 22 U/L (7.0-40); AST/SGOT 31 U/L (<34); BILIRUBIN,TOTAL 0.5 MG/DL (0.3-1.2); BLOOD UREA NITROGEN 19 MG/DL (9-23); CALCIUM LEVEL 8.2 MG/DL (8.3-10.6); CARBON DIOXIDE LEVEL 28 MMOL/L (20-31); CHLORIDE LEVEL 101 MMOL/L (98-107); CREATININE FOR GFR 0.97 MG/DL (0.70-1.30); GLOMERULAR FILTRATION RATE > 60.0 (>42); GLUCOSE, FASTING 104 MG/DL (74-106); MAGNESIUM LEVEL 2.1 MG/DL (1.8-2.4); POTASSIUM SERUM 4.4 MMOL/L (3.5-5.1); SODIUM LEVEL 133 MMOL/L (136-145); TOTAL PROTEIN 4.7 G/DL (5.7-8.2)
[2024-06-27 04:00] VITALS: BP 98/64; TEMP 97.2; O2SAT 97
[2024-06-27] MEDS ORDERED: CEPH500C PO (07:23)
[2024-06-27] MEDS ORDERED: PERCOCET PO (07:42)
[2024-06-27] MEDS ORDERED: SENN-52 PO (07:42)
[2024-06-27 08:35] LABS: BASO % 0.6 % (0.0-1.0); EOS # 0.2 10^3/uL (0.0-0.5); HEMATOCRIT 37.2 % (42.0-52.0); HEMOGLOBIN 11.9 g/dl (13.5-17.5); LYMPH # 1.6 10^3/uL (1.5-5.0); LYMPH % 24.3 % (24.0-44.0); MEAN CORPUSCULAR HEMOGLOBIN 28.1 pg (27.0-33.0); MEAN CORPUSCULAR VOLUME 87.9 fl (80.0-96.0); MONO # 0.2 10^3/uL (0.0-0.8); MONO % 3.3 % (2.0-8.0); NEUTROPHILS # 4.4 10^3/uL (1.5-8.5); NEUTROPHILS % 68.6 % (36.0-66.0); PLATELET COUNT, AUTOMATED 311 10^3/uL (150-450); RED BLOOD COUNT 4.23 10^6/uL (4.30-6.10); WHITE BLOOD COUNT 6.4 10^3/uL (4.0-10.0)
[2024-06-27 08:44] LABS: ERYTHROCYTE SEDIMENTATION RATE 20 mm/hr (0-20)
[2024-06-27] MEDS: MIDODRINE 5 MG TAB PO ONE (08:49)
[2024-06-27 09:05] LABS: ALBUMIN 2.3 G/DL (3.2-5.2); ALKALINE PHOSPHATASE 135 U/L (46-116); ALT/SGPT 19 U/L (7.0-40); AST/SGOT 21 U/L (<34); BILIRUBIN,TOTAL 0.5 MG/DL (0.3-1.2); BLOOD UREA NITROGEN 18 MG/DL (9-23); CALCIUM LEVEL 8.3 MG/DL (8.3-10.6); CARBON DIOXIDE LEVEL 30 MMOL/L (20-31); CHLORIDE LEVEL 102 MMOL/L (98-107); CREATININE FOR GFR 0.98 MG/DL (0.70-1.30); GLOMERULAR FILTRATION RATE > 60.0 (>42); GLUCOSE, FASTING 89 MG/DL (74-106); POTASSIUM SERUM 4.8 MMOL/L (3.5-5.1); SODIUM LEVEL 133 MMOL/L (136-145); TOTAL PROTEIN 4.6 G/DL (5.7-8.2)
[2024-06-27 09:16] LABS: PROCALCITONIN 0.13 ng/ml
[2024-06-27] MEDS ORDERED: BISACODYL 10MG SUPP PR PRN (11:20)
[2024-06-27] MEDS: MIRALAX *UNIT DOSE* 17GM PACKET PO SCH (11:39)
[2024-06-27] MEDS: MAGNESIUM CITRATE 300ML BTL PO ONE (11:39)
[2024-06-27] MEDS: CEPHALEXIN 500 MG CAP PO SCH (11:39)
[2024-06-27] MEDS: BISACODYL 10MG SUPP PR ONE (11:39)
[2024-06-27 12:00] VITALS: BP 100/60; TEMP 97.7; O2SAT 97
[2024-06-27] MEDS: METHYLNALTREXONE BROMIDE 12MG/0.6ML VIAL (RELISTOR) SC ONE (13:37)
[2024-06-27] MEDS ORDERED: PILL CUTTER 1 EACH XX PRN (15:35)
[2024-06-27] MEDS ORDERED: MIRA33506 PO (15:39)
[2024-06-27] MEDS ORDERED: BISA10SU PR (15:39)
[2024-06-27] MEDS ORDERED: MIDO5TA PO (15:39)
[2024-06-27] MEDS ORDERED: MSIR30TA PO (15:45)
[2024-06-27] MEDS ORDERED: MORP30TASA PO (15:45)
[2024-06-27] MEDS ORDERED: LACT20EL PO (15:50)
[2024-06-27] MEDS ORDERED: MILK400S12 PO (15:50)
[2024-06-27] MEDS: MORPHINE 30 MG SA TAB PO ONE (15:56)
[2024-06-27 17:00] VITALS: BP 100/72
[2024-06-27] MEDS: MIDODRINE 5 MG TAB PO SCH (17:04)
[2024-06-27] MEDS: PERMETHRIN 5% CREAM 60 GM TOP ONE (17:05)
[2024-06-27 19:37] VITALS: BP 117/78; TEMP 97.5; O2SAT 97
[2024-06-27] MEDS: MORPHINE 30 MG SA TAB PO SCH (21:27)
[2024-06-28] MEDS: MORPHINE 30 MG TAB **MSIR PO PRN (00:16)
[2024-06-28 00:48] LABS: ALPHA 2-MACROGLOBULINS,QN 121 mg/dL (106-279); ALT (SGPT) P5P 12 U/L (9-46); APOLIPOPROTEIN A-1 113 mg/dL (94-176); BILIRUBIN, TOTAL 0.4 mg/dL (0.2-1.2); FIBROSIS SCORE 0.11; FIBROSIS STAGE NO FIBROSIS (F0); GGT 17 U/L (3-70); HAPTOGLOBIN 326 mg/dL (43-212); NECROINFLAM ACT GRADE NO ACTIVITY (A0); NECROINFLAM ACT SCORE 0.03
[2024-06-28 05:12] VITALS: BP 119/81; TEMP 96.8; O2SAT 94
[2024-06-28 09:18] VITALS: BP 116/74; O2SAT 97
[2024-06-28 12:00] VITALS: BP 118/76; TEMP 97.3; O2SAT 97
[2024-06-28] MEDS ORDERED: SELF1KIT MC (12:20)
[2024-06-28 12:55] LABS: BASO % 0.3 % (0.0-1.0); EOS # 0.1 10^3/uL (0.0-0.5); EOS % 0.5 % (0.0-3.0); HEMOGLOBIN 12.9 g/dl (13.5-17.5); LYMPH % 18.8 % (24.0-44.0); MEAN CORPUSCULAR HEMOGLOBIN 29.1 pg (27.0-33.0); MEAN CORPUSCULAR HGB CONC 33.1 g/dl (32.0-36.5); MEAN CORPUSCULAR VOLUME 87.8 fl (80.0-96.0); MONO # 0.3 10^3/uL (0.0-0.8); MONO % 2.4 % (2.0-8.0); NEUTROPHILS # 8.2 10^3/uL (1.5-8.5); NEUTROPHILS % 77.2 % (36.0-66.0); PLATELET COUNT, AUTOMATED 382 10^3/uL (150-450); RED BLOOD COUNT 4.44 10^6/uL (4.30-6.10); WHITE BLOOD COUNT 10.6 10^3/uL (4.0-10.0)
[2024-06-28 13:28] LABS: ALBUMIN 2.4 G/DL (3.2-5.2); ALKALINE PHOSPHATASE 202 U/L (46-116); ALT/SGPT 28 U/L (7.0-40); AST/SGOT 34 U/L (<34); BILIRUBIN,TOTAL 0.6 MG/DL (0.3-1.2); BLOOD UREA NITROGEN 21 MG/DL (9-23); CALCIUM LEVEL 8.8 MG/DL (8.3-10.6); CARBON DIOXIDE LEVEL 28 MMOL/L (20-31); CHLORIDE LEVEL 103 MMOL/L (98-107); CREATININE FOR GFR 0.98 MG/DL (0.70-1.30); GLOMERULAR FILTRATION RATE > 60.0 (>42); GLUCOSE, FASTING 113 MG/DL (74-106); POTASSIUM SERUM 4.8 MMOL/L (3.5-5.1); SODIUM LEVEL 132 MMOL/L (136-145); TOTAL PROTEIN 5.1 G/DL (5.7-8.2)
[2024-06-28] MEDS ORDERED: ONDA-282 PO (13:41)
[2024-06-28] MEDS ORDERED: PROC5TAB57 PO (13:43)
[2024-06-28] MEDS ORDERED: RELI150T PO (14:04)
[2024-06-28] MEDS ORDERED: NARC1SPR (14:10)
[2024-06-28] MEDS ORDERED: MORP1SOL4 PO (14:11)
[2024-06-28] MEDS: ONDANSETRON 4MG 2ML VIAL IV ONE (14:55)
[2024-06-28 16:33] VITALS: BP 112/64
[2024-06-28] MEDS: VANCOMYCIN HCL 750 MG, VIAL MATE ADAPTER 1 EACH in D5W 250 ML IV ONE ×2 (17:29→19:01)
[2024-06-28 20:00] VITALS: BP 115/79; TEMP 97.3; O2SAT 96
[2024-06-28] MEDS: ONDANSETRON 4MG ORAL DISINTEGRATING TAB PO SCH (21:22)
[2024-06-29] MEDS: VANCOMYCIN HCL 1,000 MG, VIAL MATE ADAPTER 1 EACH in D5W 250 ML IV SCH (01:25)
[2024-06-29 03:36] VITALS: BP 118/82; TEMP 97.3; O2SAT 96
[2024-06-29] MEDS: MORPHINE 10MG/0.5ML ORAL CONCENTRATE SOLUTION U/D SL PRN (03:53)
[2024-06-29 09:43] LABS: BLOOD UREA NITROGEN 23 MG/DL (9-23); CALCIUM LEVEL 8.4 MG/DL (8.3-10.6); CARBON DIOXIDE LEVEL 28 MMOL/L (20-31); CHLORIDE LEVEL 99 MMOL/L (98-107); CREATININE FOR GFR 0.99 MG/DL (0.70-1.30); GLOMERULAR FILTRATION RATE > 60.0 (>42); GLUCOSE, FASTING 102 MG/DL (74-106); POTASSIUM SERUM 4.8 MMOL/L (3.5-5.1); SODIUM LEVEL 129 MMOL/L (136-145)
[2024-06-29] MEDS: PROCHLORPERAZINE 5MG TAB PO PRN (11:23)
[2024-06-29 12:00] VITALS: BP 105/75; TEMP 97.5; O2SAT 93
[2024-06-29 19:25] VITALS: BP 116/70; TEMP 97.3; O2SAT 97
[2024-06-30 04:00] VITALS: BP 113/72; TEMP 97.7; O2SAT 96
[2024-06-30 10:33] LABS: BLOOD UREA NITROGEN 19 MG/DL (9-23); CALCIUM LEVEL 8.8 MG/DL (8.3-10.6); CARBON DIOXIDE LEVEL 30 MMOL/L (20-31); CHLORIDE LEVEL 100 MMOL/L (98-107); CREATININE FOR GFR 0.98 MG/DL (0.70-1.30); GLOMERULAR FILTRATION RATE > 60.0 (>42); GLUCOSE, FASTING 103 MG/DL (74-106); POTASSIUM SERUM 4.8 MMOL/L (3.5-5.1); SODIUM LEVEL 129 MMOL/L (136-145)
[2024-06-30 12:00] VITALS: BP 121/79; TEMP 97.3; O2SAT 97
[2024-06-30] MEDS: VANCOMYCIN HCL 750 MG, VIAL MATE ADAPTER 1 EACH in D5W 250 ML IV SCH (13:56)
[2024-06-30] MEDS: cefTRIAXone SOD 2 GM in D5W MINI-BAG PLUS 50 ML IV SCH (17:02)
[2024-06-30] MEDS: SODIUM CHLORIDE 1 GM TAB PO SCH (17:02)
[2024-06-30 19:23] VITALS: BP 105/64; TEMP 97.7; O2SAT 99
[2024-07-01 04:00] VITALS: BP 118/78; TEMP 97.5; O2SAT 98
[2024-07-01 10:00] VITALS: O2SAT 98
[2024-07-01] MEDS: FLEET ENEMA PR PRN (10:02)
[2024-07-01 12:00] VITALS: BP 129/89; TEMP 97.3; O2SAT 97
[2024-07-01 16:28] VITALS: BP 135/85
== END 2024-07-01 18:08 | disposition home health service (06) | DRG 375 ==
LOC: M ED 10:09 → M ED INP 10:10 → M MSPAV 22:16 → OBSVTOIN 06-18 13:05
PROVIDERS: ADMIT Student in an Organized Health Care Education/Training Program; ATTEND General Practice
PROC: 0DBU4ZX Excision of Omentum, Percutaneous Endoscopic Approach, Diagnostic (ICD-10-PCS; 2024-06-24)
PROC: 0DBW4ZX Excision of Peritoneum, Percutaneous Endoscopic Approach, Diagnostic (ICD-10-PCS; 2024-06-24)
PROC: 0W9G3ZZ Drainage of Peritoneal Cavity, Percutaneous Approach (ICD-10-PCS; principal; 2024-06-24 07:30)
DX: C78.6 Secondary malignant neoplasm of retroperitoneum and peritoneum (principal); N13.30 Unspecified hydronephrosis; J90 Pleural effusion, not elsewhere classified; N13.4 Hydroureter; L03.311 Cellulitis of abdominal wall; N13.8 Other obstructive and reflux uropathy; E46 Unspecified protein-calorie malnutrition; R64 Cachexia; R18.0 Malignant ascites; E87.1 Hypo-osmolality and hyponatremia; K86.1 Other chronic pancreatitis; K59.00 Constipation, unspecified; K75.81 Nonalcoholic steatohepatitis (NASH); Z93.6 Other artificial openings of urinary tract status; I25.10 Atherosclerotic heart disease of native coronary artery without angina pectoris; E78.5 Hyperlipidemia, unspecified; Q63.0 Accessory kidney; G62.9 Polyneuropathy, unspecified; Z95.1 Presence of aortocoronary bypass graft; K74.60 Unspecified cirrhosis of liver; E88.09 Other disorders of plasma-protein metabolism, not elsewhere classified; R62.7 Adult failure to thrive; C80.1 Malignant (primary) neoplasm, unspecified; F32.A Depression, unspecified; Z85.828 Personal history of other malignant neoplasm of skin; Z79.899 Other long term (current) drug therapy; Z79.82 Long term (current) use of aspirin; Z77.098 Contact with and (suspected) exposure to other hazardous, chiefly nonmedicinal, chemicals; Z86.16 Personal history of COVID-19; Z79.01 Long term (current) use of anticoagulants; Z86.718 Personal history of other venous thrombosis and embolism

== ENCOUNTER 2024-07-01 17:28 | Outpatient (CLI) | payer MEDICARE, OTHER ==
[~2024-07-01 17:28] MED LIST changes: +BISA10SU PR; +CEPH500C PO; +CREO6000 PO; +MIDO5TA PO; +MILK400S12 PO; +MIRA33506 PO; +MORP1SOL4 PO; +MORP30TASA PO; +MSIR30TA PO; +NARC1SPR; +ONDA-282 PO; +PERCOCET PO; +PROC5TAB57 PO; +RELI150T PO; +SELF1KIT MC; +SENN-52 PO; +SIME80CH5 PO
[2024-07-01] MEDS: DALBAVANCIN 1,500 MG in D5W 250 ML IV ONE (20:25)
[2024-07-01 21:01] VITALS: BP 139/89; TEMP 97.5; O2SAT 99
== END 2024-07-01 22:19 | disposition home or self-care (01) ==
LOC: M CLINICFL 17:28 → M OPCLI4PV 17:28 → M MSPAV 18:18 → M OPCLI4PV 22:19
PROVIDERS: ATTEND General Practice
DX: L03.311 Cellulitis of abdominal wall (principal); R85.5 Abnormal microbiological findings in specimens from digestive organs and abdominal cavity; N20.0 Calculus of kidney; C80.0 Disseminated malignant neoplasm, unspecified
CPT/HCPCS: 96365; J0875

== ENCOUNTER 2024-07-03 11:34 | Outpatient (RCR) | payer MEDICARE, OTHER ==
[~2024-07-03] VITALS: Ht 177.8 cm; Wt 71.7 kg
[~2024-07-03 11:34] MED LIST changes: +GABA-1172 PO; -GABA-282 PO; -LACT10SO3 PO; +LACT10SO94 PO; -MULT200T7 PO; +MULT200T9 PO; -ROSU20TA61 PO; +ROSU20TA86 PO; -SIME180C25 PO; +SIME1CAP4 PO
[2024-07-03 11:38] VITALS: BP 124/82
[2024-07-03 12:52] LABS: BASO % 0.3 % (0.0-1.0); EOS % 0.3 % (0.0-3.0); HEMATOCRIT 38.8 % (42.0-52.0); HEMOGLOBIN 12.8 g/dl (13.5-17.5); LYMPH # 2.9 10^3/uL (1.5-5.0); LYMPH % 24.4 % (24.0-44.0); MEAN CORPUSCULAR HEMOGLOBIN 28.3 pg (27.0-33.0); MEAN CORPUSCULAR VOLUME 85.8 fl (80.0-96.0); MONO # 0.3 10^3/uL (0.0-0.8); MONO % 2.3 % (2.0-8.0); NEUTROPHILS # 8.6 10^3/uL (1.5-8.5); NEUTROPHILS % 72.3 % (36.0-66.0); PLATELET COUNT, AUTOMATED 429 10^3/uL (150-450); RED BLOOD COUNT 4.52 10^6/uL (4.30-6.10); WHITE BLOOD COUNT 11.9 10^3/uL (4.0-10.0)
[2024-07-03 13:24] LABS: ALBUMIN 2.5 G/DL (3.2-5.2); ALKALINE PHOSPHATASE 147 U/L (46-116); ALT/SGPT 23 U/L (7.0-40); AST/SGOT 19 U/L (<34); BILIRUBIN,TOTAL 0.6 MG/DL (0.3-1.2); BLOOD UREA NITROGEN 22 MG/DL (9-23); CALCIUM LEVEL 8.8 MG/DL (8.3-10.6); CARBON DIOXIDE LEVEL 27 MMOL/L (20-31); CHLORIDE LEVEL 99 MMOL/L (98-107); CREATININE FOR GFR 0.99 MG/DL (0.70-1.30); GLOMERULAR FILTRATION RATE > 60.0 (>42); GLUCOSE, FASTING 91 MG/DL (74-106); MAGNESIUM LEVEL 2.1 MG/DL (1.8-2.4); POTASSIUM SERUM 4.4 MMOL/L (3.5-5.1); SODIUM LEVEL 132 MMOL/L (136-145); TOTAL PROTEIN 5.1 G/DL (5.7-8.2)
[2024-07-03 13:29] LABS: CARCINOEMBRYONIC ANTIGEN < 2.0 NG/ML (<2.5)
[2024-07-03 13:44] LABS: CA19-9 TUMOR MARKER,CARBOHYDRA 178.5 U/ML (<35.0)
[2024-07-11] MEDS ORDERED: MORP30TASA PO (21:29)
[2024-07-19] MEDS ORDERED: BISA10SU PR (08:42)
[2024-07-19] MEDS ORDERED: ATIV1TAB7 PO (08:42)
[2024-07-19] MEDS ORDERED: TRAN1DIS4 TOP (08:42)
[2024-07-19] MEDS ORDERED: MORP30TASA PO (08:42)
[2024-07-19] MEDS ORDERED: MORP1SOL SL (08:42)
[2024-07-19] MEDS ORDERED: ATRO2DRO4 SL (08:42)
[2024-07-19] MEDS ORDERED: ONDA-282 PO (08:42)
[2024-07-19] MEDS ORDERED: LEVS0.124 SL (08:59)
[2024-07-19] MEDS ORDERED: MORP1SOL5 PO (09:09)
[2024-07-19] MEDS ORDERED: ATIV1TAB10 PO (09:09)
[2024-07-19] MEDS ORDERED: HYOS125TA PO (09:09)
== END 2024-07-24 | disposition expired ==
LOC: M ONCM 11:34
PROVIDERS: ATTEND Internal Medicine Medical Oncology
DX: C80.1 Malignant (primary) neoplasm, unspecified (principal); C79.89 Secondary malignant neoplasm of other specified sites; L08.9 Local infection of the skin and subcutaneous tissue, unspecified; I25.10 Atherosclerotic heart disease of native coronary artery without angina pectoris; Z95.1 Presence of aortocoronary bypass graft; Z79.899 Other long term (current) drug therapy; R97.8 Other abnormal tumor markers
CPT/HCPCS: 36415; 80053; 82378; 83735; 85025; 86301; 99496; G0463

== ENCOUNTER → 2024-07-08 | Outpatient (CLI) | payer MEDICARE, OTHER ==
[~2024-07-08] VITALS: Ht 177.8 cm; Wt 68.0 kg
[~2024-07-08] MED LIST changes: +CIPROFLOXACIN/D5W 400 MG/200 ML BAG As Ordered ONE; +ISOVUE-300 61% 100ML VIAL As Ordered ONE; +LACT10SO3 PO; -LACT10SO94 PO; +LIDOCAINE 1% MDV 20ML VIAL As Ordered ONE; +MIDAZOLAM INJ 2MG/2ML VIAL As Ordered ONE; +fentaNYL 100 MCG/2 ML INJECTION As Ordered ONE
[2024-07-08 11:05] VITALS: TEMP 98.3
[2024-07-08] MEDS: CIPROFLOXACIN 400 MG in IV 1 EA IV ONE (11:22)
[2024-07-08] MEDS: NS 1,000 ML IV SCH (11:22)
[2024-07-08 13:15] VITALS: BP 111/69; O2SAT 96
== END ==
LOC: M IRPRO 10:33
PROVIDERS: ATTEND Urology
DX: N13.5 Crossing vessel and stricture of ureter without hydronephrosis (principal)

== ENCOUNTER → 2024-07-09 | Outpatient (CLI) | payer MEDICARE, OTHER ==
[~2024-07-09] MED LIST changes: -CIPROFLOXACIN/D5W 400 MG/200 ML BAG As Ordered ONE; -ISOVUE-300 61% 100ML VIAL As Ordered ONE; -LIDOCAINE 1% MDV 20ML VIAL As Ordered ONE; -MIDAZOLAM INJ 2MG/2ML VIAL As Ordered ONE; -fentaNYL 100 MCG/2 ML INJECTION As Ordered ONE
== END ==
LOC: M PAL 14:16
PROVIDERS: ATTEND Family Medicine
DX: C80.1 Malignant (primary) neoplasm, unspecified (principal); C79.89 Secondary malignant neoplasm of other specified sites; N20.0 Calculus of kidney; N13.9 Obstructive and reflux uropathy, unspecified; Z51.5 Encounter for palliative care; Z79.01 Long term (current) use of anticoagulants; Z79.82 Long term (current) use of aspirin; Z79.899 Other long term (current) drug therapy; Z79.891 Long term (current) use of opiate analgesic; Z93.6 Other artificial openings of urinary tract status

== ENCOUNTER → 2024-07-09 | Outpatient (CLI) | payer MEDICARE, OTHER | LOC: M ONCM 09:00 | PROVIDERS: ATTEND Dietitian, Registered | DX: C80.1 Malignant (primary) neoplasm, unspecified (principal); Z71.3 Dietary counseling and surveillance; Z68.20 Body mass index [BMI] 20.0-20.9, adult ==

== ENCOUNTER 2024-07-11 16:29 | Inpatient (IN) | payer MEDICARE, OTHER ==
[~2024-07-11] VITALS: Ht 177.8 cm; Wt 72.4 kg
[2024-07-11] MEDS: NS 1,000 ML IV ONE (17:34)
[2024-07-11 17:53] LABS: BASO % 0.3 % (0.0-1.0); EOS % 0.3 % (0.0-3.0); HEMATOCRIT 40.3 % (42.0-52.0); HEMOGLOBIN 13.1 g/dl (13.5-17.5); LYMPH # 2.9 10^3/uL (1.5-5.0); LYMPH % 29.2 % (24.0-44.0); MEAN CORPUSCULAR HEMOGLOBIN 28.5 pg (27.0-33.0); MEAN CORPUSCULAR HGB CONC 32.5 g/dl (32.0-36.5); MEAN CORPUSCULAR VOLUME 87.8 fl (80.0-96.0); MONO # 0.2 10^3/uL (0.0-0.8); MONO % 1.7 % (2.0-8.0); NEUTROPHILS # 6.8 10^3/uL (1.5-8.5); NEUTROPHILS % 67.9 % (36.0-66.0); PLATELET COUNT, AUTOMATED 407 10^3/uL (150-450); RED BLOOD COUNT 4.59 10^6/uL (4.30-6.10); WHITE BLOOD COUNT 10.1 10^3/uL (4.0-10.0)
[2024-07-11 17:59] LABS: ERYTHROCYTE SEDIMENTATION RATE 15 mm/hr (0-20)
[2024-07-11 18:04] LABS: INR 1.36; PROTHROMBIN TIME 16.3 SECONDS (12.5-14.5)
[2024-07-11 18:07] LABS: C REACTIVE PROTEIN QUANTITATIV 2.6 MG/DL (<1.0)
[2024-07-11 18:09] LABS: ALBUMIN 2.9 G/DL (3.2-5.2); BILIRUBIN,DIRECT 0.2 MG/DL (<0.4); BILIRUBIN,TOTAL 0.5 MG/DL (0.3-1.2); CALCIUM LEVEL 9.3 MG/DL (8.3-10.6); CREATININE FOR GFR 1.45 MG/DL (0.70-1.30); GLOMERULAR FILTRATION RATE 50.4 (>42); POTASSIUM SERUM 4.3 MMOL/L (3.5-5.1); TOTAL PROTEIN 5.5 G/DL (5.7-8.2)
[2024-07-11] MEDS ORDERED: ISOVUE-370 76% 100ML VIAL As Ordered ONE (18:43)
[2024-07-11] MEDS: ASPIRIN 81MG ENTERIC TABLET PO SCH (21:00)
[2024-07-11] MEDS ORDERED: MORPHINE 30 MG SA TAB PO SCH (21:00)
[2024-07-11] MEDS: SENOKOT S TAB PO SCH (21:00)
[2024-07-11] MEDS: DOCUSATE SODIUM 100MG CAPSULE PO SCH (21:00)
[2024-07-11] MEDS: EZETIMIBE 10MG TABLET (ZETIA) PO SCH (21:00)
[2024-07-11] MEDS ORDERED: MORP30TASA PO (21:29)
[2024-07-11] MEDS ORDERED: HOME MED LIST COMPLETE! XX SCH (21:30)
[2024-07-11] MEDS: MORPHINE 30 MG SA TAB PO ONE (22:18)
[2024-07-11] MEDS ORDERED: NITROGLYCERIN 0.4MG SUBL TABLET SL PRN (22:45)
[2024-07-11] MEDS ORDERED: MOM 30ML SUSPENSION UDC PO PRN (22:45)
[2024-07-11] MEDS ORDERED: MORPHINE SULFATE ORAL SOLN 10 MG/5 ML UD PO PRN (22:45)
[2024-07-11] MEDS ORDERED: ACETAMINOPHEN 325 MG TAB PO PRN (22:45)
[2024-07-12 00:06] VITALS: BP 140/97; TEMP 97.7; O2SAT 97
[2024-07-12] MEDS: ONDANSETRON 4MG 2ML VIAL IV ONE (00:44)
[2024-07-12 01:04] VITALS: BP 136/87; TEMP 97.9; O2SAT 98
[2024-07-12] MEDS: SCOPOLAMINE 1MG TRANSDERMAL PATCH TOP SCH (01:14)
[2024-07-12 03:25] VITALS: BP 134/86; TEMP 97.7; O2SAT 93; O2SAT 95
[2024-07-12 06:15] VITALS: BP 127/81; TEMP 97.5; O2SAT 95
[2024-07-12 06:24] LABS: HEMATOCRIT 35.2 % (42.0-52.0); HEMOGLOBIN 11.6 g/dl (13.5-17.5); MEAN CORPUSCULAR HEMOGLOBIN 28.7 pg (27.0-33.0); MEAN CORPUSCULAR VOLUME 87.1 fl (80.0-96.0); PLATELET COUNT, AUTOMATED 322 10^3/uL (150-450); RED BLOOD COUNT 4.04 10^6/uL (4.30-6.10); WHITE BLOOD COUNT 9.2 10^3/uL (4.0-10.0)
[2024-07-12 06:53] LABS: ALBUMIN 2.7 G/DL (3.2-5.2); BILIRUBIN,TOTAL 0.5 MG/DL (0.3-1.2); CALCIUM LEVEL 8.9 MG/DL (8.3-10.6); CREATININE FOR GFR 1.44 MG/DL (0.70-1.30); GLOMERULAR FILTRATION RATE 50.8 (>42); POTASSIUM SERUM 4.2 MMOL/L (3.5-5.1)
[2024-07-12] MEDS: CREON-12 CAPSULE (PANCRELIPASE) PO SCH (08:00)
[2024-07-12] MEDS: MIDODRINE 5 MG TAB PO SCH (08:00)
[2024-07-12 08:12] VITALS: BP 128/80; TEMP 97.5
[2024-07-12] MEDS: LACTULOSE 20GM/30ML SYRUP UDC PO SCH (08:50)
[2024-07-12] MEDS: MIRALAX *UNIT DOSE* 17GM PACKET PO SCH (08:51)
[2024-07-12] MEDS: MOM 30ML SUSPENSION UDC PO SCH (08:51)
[2024-07-12] MEDS: ROSUVASTATIN 10 MG TAB (CRESTOR) PO SCH (08:51)
[2024-07-12] MEDS: CYANOCOBALAMIN 500 MCG TAB PO SCH (08:52)
[2024-07-12] MEDS: SIMETHICONE 80MG CHEW TAB PO SCH (08:52)
[2024-07-12] MEDS: MORPHINE 30 MG SA TAB PO SCH (08:52)
[2024-07-12] MEDS: BISACODYL 10MG SUPP PR SCH (08:53)
[2024-07-12] MEDS: buPROPion (WELLBUTRIN SR) 100 MG SR TAB PO SCH (08:53)
[2024-07-12] MEDS: ONDANSETRON 4MG 2ML VIAL IV PRN (09:58)
[2024-07-12] MEDS ORDERED: MORPHINE 4 MG/ML 1ML VIAL IV PRN (23:10)
[2024-07-13] MEDS: MORPHINE 30 MG SA TAB PO SCH (11:39)
[2024-07-14] MEDS: MORPHINE 10MG/0.5ML ORAL CONCENTRATE SOLUTION U/D SL PRN (03:26)
[2024-07-15 09:13] VITALS: BP 121/80; TEMP 97.9; O2SAT 97
[2024-07-15] MEDS: ONDANSETRON 4MG ORAL DISINTEGRATING TAB PO PRN (23:51)
[2024-07-16] MEDS ORDERED: ACETAMINOPHEN 325 MG TAB PO PRN (04:50)
[2024-07-17] MEDS ORDERED: LIDOCAINE 1% MDV 20ML VIAL As Ordered ONE (06:50)
[2024-07-17] MEDS ORDERED: ISOVUE-300 61% 100ML VIAL As Ordered ONE (06:50)
[2024-07-17] MEDS ORDERED: ONDANSETRON 4MG 2ML VIAL As Ordered ONE (07:18)
[2024-07-17] MEDS: ONDANSETRON 4MG 2ML VIAL IV ONE (07:31)
[2024-07-17] MEDS: LORazepam 2 MG/ML 1ML VIAL IV PRN (13:30)
[2024-07-17] MEDS ORDERED: MORPHINE 10MG/0.5ML ORAL CONCENTRATE SOLUTION U/D SL PRN (22:05)
[2024-07-17] MEDS: MORPHINE 10MG/0.5ML ORAL CONCENTRATE SOLUTION U/D SL PRN (22:31)
[2024-07-17] MEDS: LORazepam 1 MG TAB PO PRN (22:31)
[2024-07-19] MEDS: ATROPINE SULFATE 1% OPHTH SOLN 2ML BTL SL PRN (03:28)
[2024-07-19] MEDS ORDERED: ATIV1TAB7 PO (08:42)
[2024-07-19] MEDS ORDERED: ATRO2DRO4 SL (08:42)
[2024-07-19] MEDS ORDERED: BISA10SU PR (08:42)
[2024-07-19] MEDS ORDERED: TRAN1DIS4 TOP (08:42)
[2024-07-19] MEDS ORDERED: MORP1SOL SL (08:42)
[2024-07-19] MEDS ORDERED: ONDA-282 PO (08:42)
[2024-07-19] MEDS ORDERED: MORP30TASA PO (08:42)
[2024-07-19] MEDS ORDERED: LEVS0.124 SL (08:59)
[2024-07-19] MEDS ORDERED: HYOS125TA PO (09:09)
[2024-07-19] MEDS ORDERED: ATIV1TAB10 PO (09:09)
[2024-07-19] MEDS ORDERED: MORP1SOL5 PO (09:09)
== END 2024-07-19 09:47 | disposition hospice, home (50) | DRG 844 ==
LOC: M ED 16:29 → M ED INP 22:44 → M MSPAV 07-12 00:07
PROVIDERS: ADMIT Student in an Organized Health Care Education/Training Program; ATTEND Internal Medicine
PROC: 0WHG33Z Insertion of Infusion Device into Peritoneal Cavity, Percutaneous Approach (ICD-10-PCS; 2024-07-17)
PROC: 0W9G30Z Drainage of Peritoneal Cavity with Drainage Device, Percutaneous Approach (ICD-10-PCS; principal; 2024-07-17 07:00)
DX: C80.0 Disseminated malignant neoplasm, unspecified (principal); R18.0 Malignant ascites; K86.1 Other chronic pancreatitis; N17.9 Acute kidney failure, unspecified; E78.5 Hyperlipidemia, unspecified; G89.3 Neoplasm related pain (acute) (chronic); N13.9 Obstructive and reflux uropathy, unspecified; G47.33 Obstructive sleep apnea (adult) (pediatric); G62.9 Polyneuropathy, unspecified; F32.A Depression, unspecified; K59.09 Other constipation; Z79.01 Long term (current) use of anticoagulants; Z86.718 Personal history of other venous thrombosis and embolism; Z77.098 Contact with and (suspected) exposure to other hazardous, chiefly nonmedicinal, chemicals; L57.0 Actinic keratosis